=== PATIENT | female | born 2000 | race Caucasian/White ===

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

== ENCOUNTER 2019-08-07 20:52 | Emergency (ER) | payer MEDICAID, OTHER ==
[2019-08-07 21:09] VITALS: BP 151/91; PULSE 89; RESP 18; TEMP 99.1
--- NOTE | 2019-08-07 22:42 | XR ---
EXAMINATION TYPE: XR chest 1V portable DATE OF EXAM: 08/07/2019 COMPARISON: 10/27/2017 HISTORY: Cough TECHNIQUE: FINDINGS: Heart and mediastinum are normal. Lungs are clear. Diaphragm is normal. Bony thorax appears normal. IMPRESSION: Normal chest. No change.
--- NOTE | 2019-08-07 23:09 | ED ---
General Adult HPI - General Chief complaint: ENT Stated complaint: Fever, Sore Throat Time Seen by Provider: 08/07/19 21:20 Source: patient, RN notes reviewed Mode of arrival: ambulatory Limitations: no limitations - History of Present Illness Initial comments: 19-year-old female presents to the emergency department for a chief complaint of low-grade fever. 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 States she started to get a sore throat yesterday. Mild cough. Patient states that she is concerned she could have coronavirus because of where she works. She denies shortness of breath. Denies chest pain.Patient has no other complaints at this time including shortness of breath, chest pain, abdominal pain, nausea or vomiting, headache, or visual changes. - Related Data Previous Rx's Medication Instructions Recorded Ibuprofen [Motrin] 600 mg PO Q8HR PRN #30 tab 09/23/18 Ondansetron [Zofran ODT] 4 mg PO Q8HR PRN #20 tab 09/23/18 Hydrocodone/Acetaminophen [Hale 1 tab PO Q6HR PRN 3 Days #10 tab 09/25/18 5-325] Allergies Allergy/AdvReac Type Severity Reaction Status Date / Time No Known Allergies Allergy Verified 08/07/19 21:09 Review of Systems ROS Statement: Those systems with pertinent positive or pertinent negative responses have been documented in the HPI. ROS Other: All systems not noted in ROS Statement are negative. Past Medical History Past Medical History: No Reported History History of Any Multi-Drug Resistant Organisms: None Reported Past Surgical History: Cholecystectomy Past Psychological History: Depression Smoking Status: Never smoker Past Alcohol Use History: None Reported Past Drug Use History: None Reported - Past Family History Mother Family Medical History: Hypertension Additional Family Medical History / Comment(s): ovarian cancer, christiano, breast tumor Father Family Medical History: Hyperlipidemia, Hypertension General Exam Limitations: no limitations General appearance: alert, in no apparent distress Head exam: Present: atraumatic, normocephalic, normal inspection Eye exam: Present: normal appearance, PERRL, EOMI. Absent: scleral icterus, conjunctival injection, periorbital swelling ENT exam: Present: normal exam, normal oropharynx (Uvula midline, non- erythematous, no tonsillar exudates bilaterally), mucous membranes moist, TM's normal bilaterally, normal external ear exam Neck exam: Present: normal inspection, full ROM. Absent: tenderness, meningismus, lymphadenopathy Respiratory exam: Present: normal lung sounds bilaterally. Absent: respiratory distress, wheezes, rales, rhonchi, stridor Cardiovascular Exam: Present: regular rate, normal rhythm, normal heart sounds. Absent: systolic murmur, diastolic murmur, rubs, gallop, clicks GI/Abdominal exam: Present: soft, normal bowel sounds. Absent: distended, tenderness, guarding, rebound, rigid Neurological exam: Present: alert Course Vital Signs 08/07/19 21:07 Temperature 99.1 F Pulse Rate 89 Respiratory 18 Rate Blood Pressure 151/91 O2 Sat by Pulse 98 Oximetry Medical Decision Making - Medical Decision Making Vitals are stable. Patient is afebrile. Strep is negative. This x-ray shows a normal chest. Carotid versus pending. I will call patient with results tomorrow at the beginning of my shift. If she has any worsening symptoms prior to that she will return. She is aware not to go to work until she gets these results. - Lab Data Lab Results 08/07/19 Range/Units 22:08 Group A Strep Rapid Negative (Negative) Disposition Clinical Impression: Pharyngitis Disposition: HOME SELF-CARE Condition: Good Instructions (If sedation given, give patient instructions): Strep Throat (ED) Additional Instructions: Please take Tylenol for any fevers. If you have any worsening symptoms or shortness of breath return to the ER. Otherwise follow-up with primary care in 1-2 days. Is patient prescribed a controlled substance at d/c from ED?: No Referrals: Lencho Quiroz III, MD [Primary Care Provider] - 1-2 days Time of Disposition: 23:09
== END 2019-08-07 23:23 | disposition home or self-care (01) ==
LOC: EC 20:52
DX: J02.9 Acute pharyngitis, unspecified (principal); Z20.828 Contact with and (suspected) exposure to other viral communicable diseases
CPT/HCPCS: 71045; 87081; 87430; 87635; 99283

== ENCOUNTER 2019-09-14 14:06 | Emergency (ER) | payer OTHER ==
[2019-09-14 14:10] VITALS: TEMP 98.6
[2019-09-14] MEDS ORDERED: diphenhydrAMINE 50 MG/ML 1 ML VIAL IVP STA (14:23)
[2019-09-14] MEDS ORDERED: METOCLOPRAMIDE 5 MG/ML 2 ML VIAL IVP STA (14:23)
[2019-09-14] MEDS ORDERED: SODIUM CHLORIDE 0.9% 1,000 ML IV STA (14:23)
[2019-09-14] MEDS ORDERED: ACET/COD 300 MG/30 MG STARTER PACK 6 TAB BTL PO STA (14:52)
--- NOTE | 2019-09-14 14:57 | ED ---
General Adult HPI - General Chief complaint: Nausea/Vomiting/Diarrhea Stated complaint: 8.5 wks preg/vomiting Time Seen by Provider: 09/14/19 14:12 Source: patient, RN notes reviewed Mode of arrival: ambulatory Limitations: no limitations - History of Present Illness Initial comments: 19-year-old female currently 9 weeks presents to the emergency room for chief complaint of nausea vomiting. Patient states she has had nausea throughout this however worsen less than around 9 PM. Patient states she started vomiting and has not been able to keep down liquids. Sit patient called her OB and stated she should come to the emergency room for fluids. Patient has not tried any antiemetics. Patient denies any abdominal pain or v aginal bleeding. Patient does have a confirmed intrauterine by ultrasound at 5 weeks. Patient denies fevers or chills.Patient has no other complaints at this time including shortness of breath, chest pain, abdominal pain, headache, or visual changes. - Related Data Home Medications Medication Instructions Recorded Confirmed Pnv No.95/Ferrous Fum/Folic AC 1 tab PO DAILY 09/14/19 09/14/19 [ Multivitamin Tablet] RX: Levothyroxine Sodium 25 mcg PO QAM 09/14/19 09/14/19 Previous Rx's Medication Instructions Recorded Cephalexin [Keflex] 500 mg PO TID 7 Days #21 cap 09/14/19 Doxylamine/Pyridoxine HCl (B6) 2 tab PO HS PRN #14 tab 09/14/19 [Diclegis Dr 10-10 mg Tablet] Allergies Allergy/AdvReac Type Severity Reaction Status Date / Time No Known Allergies Allergy Verified 09/14/19 15:55 Review of Systems ROS Statement: Those systems with pertinent positive or pertinent negative responses have been documented in the HPI. ROS Other: All systems not noted in ROS Statement are negative. Past Medical History Past Medical History: No Reported History History of Any Multi-Drug Resistant Organisms: None Reported Past Surgical History: Cholecystectomy Past Psychological History: Depression Smoking Status: Never smoker Past Alcohol Use History: None Reported Past Drug Use History: None Reported - Past Family History Mother Family Medical History: Hypertension Additional Family Medical History / Comment(s): ovarian cancer, christiano, breast tumor Father Family Medical History: Hyperlipidemia, Hypertension General Exam Limitations: no limitations General appearance: alert, in no apparent distress Head exam: Present: atraumatic, normocephalic, normal inspection Eye exam: Present: normal appearance, PERRL, EOMI. Absent: scleral icterus, conjunctival injection, periorbital swelling ENT exam: Present: normal exam, mucous membranes moist Neck exam: Present: normal inspection, full ROM. Absent: tenderness, meningismus, lymphadenopathy Respiratory exam: Present: normal lung sounds bilaterally. Absent: respiratory distress, wheezes, rales, rhonchi, stridor Cardiovascular Exam: Present: regular rate, normal rhythm, normal heart sounds. Absent: systolic murmur, diastolic murmur, rubs, gallop, clicks GI/Abdominal exam: Present: soft, normal bowel sounds. Absent: distended, tenderness, guarding, rebound, rigid Neurological exam: Present: alert Course Vital Signs 09/14/19 14:07 Temperature 98.6 F Pulse Rate 75 Respiratory 16 Rate Blood Pressure 114/69 O2 Sat by Pulse 98 Oximetry Medical Decision Making - Medical Decision Making Vitals are stable. Minimal leukocytosis likely reflective of vomiting. CMP unremarkable. Urinalysis does show a white blood cells with occasional bacteria, patient will be treated for asymptomatic bactruria given . Patient tolerating oral intake at this time. Will be started on likely just. Will return for any worsening symptoms. Patient is agreeable to follow up with OBGYN in 1-2 days. HCG Quant pending for OB. - Lab Data Result diagrams: 09/14/19 14:44 09/14/19 14:44 Lab Results 09/14/19 09/14/19 09/14/19 Range/Units 14:40 14:44 14:44 WBC 11.9 H (4.0-11.0) k/uL RBC 5.12 (3.80-5.40) m/uL Hgb 14.7 (11.4-16.0) gm/dL Hct 44.5 (34.0-46.0) % MCV 87.0 (80.0-100.0) fL MCH 28.7 (25.0-35.0) pg MCHC 33.0 (31.0-37.0) g/dL RDW 13.1 (11.5-15.5) % Plt Count 289 (150-450) k/uL Neutrophils % 78 % Lymphocytes % 14 % Monocytes % 5 % Eosinophils % 1 % Basophils % 0 % Neutrophils # 9.4 H (1.3-7.7) k/uL Lymphocytes # 1.7 (1.0-4.8) k/uL Monocytes # 0.6 (0-1.0) k/uL Eosinophils # 0.1 (0-0.7) k/uL Basophils # 0.0 (0-0.2) k/uL Sodium 135 L (137-145) mmol/L Potassium 3.8 (3.5-5.1) mmol/L Chloride 101 (98-107) mmol/L Carbon Dioxide 24 (22-30) mmol/L Anion Gap 10 mmol/L BUN 8 (7-17) mg/dL Creatinine 0.57 (0.52-1.04) mg/dL Est GFR (CKD-EPI)AfAm >90 (>60 ml/min/1.73 sqM) Est GFR (CKD-EPI)NonAf >90 (>60 ml/min/1.73 sqM) Glucose 85 (74-99) mg/dL Calcium 9.5 (8.4-10.2) mg/dL Total Bilirubin 0.4 (0.2-1.3) mg/dL AST 22 (14-36) U/L ALT 18 (4-34) U/L Alkaline Phosphatase 103 (38-126) U/L Total Protein 7.3 (6.3-8.2) g/dL Albumin 4.2 (3.5-5.0) g/dL Amylase <30 L (30-110) U/L Lipase 47 (23-300) U/L Urine Color Yellow Urine Appearance Cloudy H (Clear) Urine pH 7.0 (5.0-8.0) Ur Specific [place] 1.022 (1.001-1.035) Urine Protein 1+ H (Negative) Urine Glucose (UA) Negative (Negative) Urine Ketones Negative (Negative) Urine Blood Negative (Negative) Urine Nitrite Negative (Negative) Urine Bilirubin Negative (Negative) Urine Urobilinogen 4.0 (<2.0) mg/dL Ur Leukocyte Esterase Large H (Negative) Urine RBC 3 (0-5) /hpf Urine WBC 8 H (0-5) /hpf Ur Squamous Epith Cells 22 H (0-4) /hpf Urine Bacteria Occasional H (None) /hpf Urine Mucus Many H (None) /hpf Disposition Clinical Impression: Nausea and vomiting Disposition: HOME SELF-CARE Condition: Good Instructions (If sedation given, give patient instructions): Hyperemesis Gravidarum (ED) Additional Instructions: Please take Diclegis and Keflex as directed. Follow-up with your OB tomorrow for your symptoms. If you have any worsening symptoms return here to the emergency room. Prescriptions: Doxylamine/Pyridoxine HCl (B6) [Diclegis Dr 10-10 mg Tablet] 2 tab PO HS PRN #14 tab PRN Reason: Nausea Cephalexin [Keflex] 500 mg PO TID 7 Days #21 cap Is patient prescribed a controlled substance at d/c from ED?: No Referrals: Lencho Quiroz III, MD [Primary Care Provider] - 1-2 days Time of Disposition: 16:16
[2019-09-14 15:11] LABS: Basophils % (A) 0 %; Eosinophils # (A) 0.1 k/uL (0-0.7); Eosinophils % (A) 1 %; HCT 44.5 % (34.0-46.0); HGB 14.7 gm/dL (11.4-16.0); Lymphocytes # (A) 1.7 k/uL (1.0-4.8); Lymphocytes % (A) 14 %; MCH 28.7 pg (25.0-35.0); Mean Platelet Volume 7.7; Monocytes # (A) 0.6 k/uL (0-1.0); Monocytes % (A) 5 %; Neutrophils # (A) 9.4 k/uL (1.3-7.7); Neutrophils % (A) 78 %; Platelet Count 289 k/uL (150-450); RBC 5.12 m/uL (3.80-5.40); RDW 13.1 % (11.5-15.5); WBC 11.9 k/uL (4.0-11.0)
[2019-09-14 15:20] LABS: ALT 18 U/L (4-34); AST 22 U/L (14-36); African American GFR (CKD) >90 (>60 ml/min/1.73 sqM); Albumin 4.2 g/dL (3.5-5.0); Alkaline Phosphatase 103 U/L (38-126); Amylase <30 U/L (30-110); Anion Gap 10 mmol/L; Blood Urea Nitrogen 8 mg/dL (7-17); Calcium 9.5 mg/dL (8.4-10.2); Carbon Dioxide 24 mmol/L (22-30); Chloride 101 mmol/L (98-107); Glucose 85 mg/dL (74-99); Non-African American GFR(CKD) >90 (>60 ml/min/1.73 sqM); Potassium 3.8 mmol/L (3.5-5.1); Sodium 135 mmol/L (137-145); Total Bilirubin 0.4 mg/dL (0.2-1.3); Total Protein 7.3 g/dL (6.3-8.2)
[2019-09-14 15:20] LABS: Appearance,Urine Cloudy (Clear); Bacteria,Urine Occasional /hpf; Bilirubin,Urine Negative (Negative); Blood,Urine Negative (Negative); Color,Urine Yellow; Glucose,Urine (UA) Negative (Negative); Ketones,Urine Negative (Negative); Leukocyte Esterase,Urine Large (Negative); Mucus,Urine Many /hpf; Nitrite,Urine Negative (Negative); Protein,Urine 1+ (Negative); RBC,Urine 3 /hpf (0-5); Specific Gravity,Urine 1.022 (1.001-1.035); Squamous Epithelial Cell,Urine 22 /hpf (0-4); WBC,Urine 8 /hpf (0-5)
[2019-09-14 16:19] LABS: HCG,Quantitative Serum 98723.8 mIU/mL
[2019-09-14 16:27] VITALS: BP 120/70; PULSE 70; RESP 18
== END 2019-09-14 16:26 | disposition home or self-care (01) ==
LOC: EC 14:06
DX: O21.9 Vomiting of pregnancy, unspecified (principal); O99.89 Other specified diseases and conditions complicating pregnancy, childbirth and the puerperium; R82.71 Bacteriuria; Z3A.09 9 weeks gestation of pregnancy; Z79.890 Hormone replacement therapy
CPT/HCPCS: 36415; 80053; 82150; 83690; 85025; 81001; 84702; 99284; 96374; 96375; 96361; J1200; J2765

== ENCOUNTER 2020-01-13 03:44 | Outpatient (CLI) | payer OTHER ==
[2020-01-13 05:00] VITALS: BP 134/70; PULSE 88; RESP 18; TEMP 97.2
--- NOTE | 2020-01-25 08:17 | P.MSEPDOC ---
Presenting Problems - Arrival Data Date of Arrival on Unit: 01/13/20 Time of Arrival on Unit: 03:44 Mode of Transport: Ambulatory - Complaint OB-Reason for Admission/Chief Complaint: Vaginal Bleeding Comment: VAGINAL BLEEDING WITH INTERCOURSE - PT STATES IT LOOKED LIKE A LOT OF BLOOD ON SHEETS, ONLY PINK WHEN WIPING WHEN UP TO BATHROOM, SCANT PINK ON UNDERWEAR, NO NEED TO WEAR PAD IN AND MINIMAL BLOOD ON EXTERIOR VAGINA. Medical History - Information : 1 Para: 0 Term: 0 : 0 Abortions: Spontaneous or Elective: 0 Number of Living Children: 0 - Gestational Age Gestational Age by CAMPOS (wks/days): 25 Weeks and 6 Days Review of Systems - Review of Systems Constitutional: No problems Breast: No problems ENT: No problems Cardiovascular: No problems Respiratory: No problems Gastrointestinal: No problems Genitourinary: No problems Musculoskeletal: No problems Neurological: No problems Skin: No problems Vital Signs - Temperature Temperature: 97.2 F Temperature Source: Temporal Artery Scan - Pulse Right Pulse Oximetery Pulse Rate: 88 Pulse Assessment Method: Pulse Oximetry - Respirations Respiratory Rate: 18 Oxygen Delivery Method: Room Air O2 Sat by Pulse Oximetry: 98 - Blood Pressure Right Arm Blood Pressure: 134/70 Blood Pressure Mean: 91 Blood Pressure Source: Automatic Cuff Medical Screen Scoring (Pre) - Cervical Exam Dilation: 0 cm = 0 Membranes: Intact - Uterine Contractions Frequency: N/A Duration: N/A Intensity: N/A - Maternal Vital Signs Maternal Temperature: N/A Maternal Blood Pressure: N/A Signs of Preeclampsia: N/A Maternal Respirations: N/A - Maternal Trauma Maternal Trauma: N/A - Assessment - Baby A Baseline FHR: 135 Heart Rate - NICHD Category: Category I (Normal) = 0 Position: N/A Station: N/A - Total Score - Baby A Total Score - Baby A: 0 - Total Score - Baby B Total Score - Baby B: 0 - Total Score - Baby C Total Score - Baby C: 0 - Level of Risk - Baby A Level of Risk - Baby A: Low (0-5) - Level of Risk - Baby B Level of Risk - Baby B: Low (0-5) - Level of Risk - Baby C Level of Risk - Baby C: Low (0-5) Physician Notification (Pre) - Physician Notified Physician Notified Date: 01/13/20 Physician Notified Time: 04:36 New Order Received: Yes Disposition - Disposition OB Disposition: Discharge to home Discharge Date: 01/13/20 Discharge Time: 04:50 I agree with the RN Medical Screening Exam: Yes Risk & Benefit of care provided described in d/c instruction: Yes Diagnosis: ABNORMAL UTERINE AND VAGINAL BLEEDING, UNSPECIFIED
== END 2020-01-13 04:50 | disposition home or self-care (01) ==
LOC: FBPOP 03:44
PROVIDERS: ATTEND Obstetrics & Gynecology
DX: O46.93 Antepartum hemorrhage, unspecified, third trimester (principal); Z3A.25 25 weeks gestation of pregnancy
CPT/HCPCS: 99213

== ENCOUNTER 2020-04-12 14:01 | Outpatient (CLI) | payer OTHER ==
[2020-04-12 15:18] LABS: ALT 12 U/L (4-34); AST 28 U/L (14-36); African American GFR (CKD) >90 (>60 ml/min/1.73 sqM); Blood Urea Nitrogen 8 mg/dL (7-17); LDH 699 U/L (313-618); Non-African American GFR(CKD) >90 (>60 ml/min/1.73 sqM); Uric Acid 5.7 mg/dL (3.7-7.4)
[2020-04-12 15:19] LABS: Basophils # (A) 0.1 k/uL (0-0.2); Basophils % (A) 0 %; Eosinophils # (A) 0.2 k/uL (0-0.7); Eosinophils % (A) 1 %; HCT 40.8 % (34.0-46.0); HGB 13.9 gm/dL (11.4-16.0); Lymphocytes # (A) 1.4 k/uL (1.0-4.8); Lymphocytes % (A) 12 %; MCH 27.8 pg (25.0-35.0); MCHC 34.1 g/dL (31.0-37.0); MCV 81.6 fL (80.0-100.0); Mean Platelet Volume 9.8; Monocytes # (A) 0.7 k/uL (0-1.0); Monocytes % (A) 6 %; Neutrophils # (A) 9.6 k/uL (1.3-7.7); Neutrophils % (A) 80 %; Platelet Count 223 k/uL (150-450); RDW 14.4 % (11.5-15.5)
[2020-04-12 15:24] LABS: Appearance,Urine Cloudy (Clear); Bacteria,Urine Moderate /hpf; Bilirubin,Urine Negative (Negative); Blood,Urine Negative (Negative); Color,Urine Yellow; Creatinine,Urine Random 134.5 mg/dL; Glucose,Urine (UA) Negative (Negative); Ketones,Urine Negative (Negative); Leukocyte Esterase,Urine Large (Negative); Mucus,Urine Rare /hpf; Nitrite,Urine Negative (Negative); Protein,Urine 1+ (Negative); Protein/Creatinine Ratio,Urine 0.193; RBC,Urine 1 /hpf (0-5); Specific Gravity,Urine 1.014 (1.001-1.035); Squamous Epithelial Cell,Urine 10 /hpf (0-4); Urobilinogen,Urine <2.0 mg/dL (<2.0); WBC,Urine 24 /hpf (0-5)
[2020-04-12 15:27] LABS: INR 0.9 (<1.2); Partial Thromboplastin Time 22.8 sec (22.0-30.0); Prothrombin Time 9.6 sec (9.0-12.0)
[2020-04-12 16:02] VITALS: BP 132/85; PULSE 121; RESP 16; TEMP 97.9
--- NOTE | 2020-04-12 18:07 | P.MSEPDOC ---
Presenting Problems - Arrival Data Date of Arrival on Unit: 04/12/20 Time of Arrival on Unit: 14:01 Mode of Transport: Ambulatory - Complaint OB-Reason for Admission/Chief Complaint: NST, PIH Medical History - Information : 1 Para: 0 Term: 0 : 0 Abortions: Spontaneous or Elective: 0 Number of Living Children: 0 - Gestational Age Gestational Age by CAMPOS (wks/days): 38 Weeks and 5 Days - History Complications: Other Comment: maternal HTN at office today Review of Systems - Review of Systems Constitutional: No problems Breast: No problems ENT: No problems Cardiovascular: No problems Respiratory: No problems Gastrointestinal: No problems Genitourinary: No problems Musculoskeletal: No problems Neurological: No problems Skin: No problems Vital Signs - Temperature Temperature: 97.9 F Temperature Source: Temporal Artery Scan - Pulse Right Pulse Rate: 121 Pulse Assessment Method: Automatic Cuff - Respirations Respiratory Rate: 16 Oxygen Delivery Method: Room Air O2 Sat by Pulse Oximetry: 98 - Blood Pressure Right Arm Blood Pressure: 132/85 Blood Pressure Mean: 100 Blood Pressure Source: Automatic Cuff Medical Screen Scoring (Pre) - Cervical Exam Dilation: Exam Deferred Effacement: Exam Deferred Membranes: Intact - Uterine Contractions Frequency: N/A Duration: N/A Intensity: N/A - Maternal Vital Signs Maternal Temperature: N/A Signs of Preeclampsia: N/A Maternal Respirations: N/A - Maternal Trauma Maternal Trauma: N/A - Assessment - Baby A Baseline FHR: 145 Heart Rate - NICHD Category: Category I (Normal) = 0 NST: Reactive Position: N/A Station: N/A - Total Score - Baby A Total Score - Baby A: 0 - Total Score - Baby B Total Score - Baby B: 0 - Total Score - Baby C Total Score - Baby C: 0 - Level of Risk - Baby A Level of Risk - Baby A: Low (0-5) - Level of Risk - Baby B Level of Risk - Baby B: Low (0-5) - Level of Risk - Baby C Level of Risk - Baby C: Low (0-5) Physician Notification (Pre) - Physician Notified Physician Notified Date: 04/12/20 Physician Notified Time: 15:36 New Order Received: Yes - Notification Comment Comment: RN spoke with Dr. Ching, reviewed PIH labs, vitals, and status. Pt to DC home and come in Saturday 04/15 for a BP check and NST. Pt to be an IOL on Monday 04/17 and arrive at 6am. Disposition - Disposition OB Disposition: Discharge to home Discharge Date: 04/12/20 Discharge Time: 16:05 I agree with the RN Medical Screening Exam: Yes Case reviewed; plan agreed upon as documented in EMR&OBIX.: Yes Diagnosis: GESTATIONAL EDEMA, THIRD TRIMESTER
== END 2020-04-12 16:03 | disposition home or self-care (01) ==
LOC: FBPOP 14:01
PROVIDERS: ATTEND Obstetrics & Gynecology
DX: O12.03 Gestational edema, third trimester (principal); Z3A.38 38 weeks gestation of pregnancy
CPT/HCPCS: 59025; 81001; 82565; 82570; 83615; 84156; 84450; 84460; 84520; 84550; 85025; 85384; 85610; 85730

== ENCOUNTER 2020-04-15 12:40 | Inpatient (IN) | payer OTHER ==
[2020-04-15] MEDS ORDERED: LIDOCAINE 0.5% (PF) 5 MG/ML (50 ML SDV) SQ PRN (13:19)
[2020-04-15] MEDS ORDERED: METHYLERGONOVINE 0.2 MG/ML 1 ML AMP IM PRN (13:19)
[2020-04-15] MEDS ORDERED: TERBUTALINE 1 MG/ML VIAL SQ PRN (13:19)
[2020-04-15] MEDS ORDERED: OXYTOCIN 10 UNIT/ML 1 ML VIAL IM PRN (13:19)
[2020-04-15] MEDS ORDERED: CARBOPROST TROMETHAMINE 250 MCG/ML 1 ML AMP IM PRN (13:19)
[2020-04-15] MEDS ORDERED: OXYTOCIN 30 UNITS/500 ML NS 30 UNIT in SALINE 1 500ML.BAG IV SCH (13:30)
[2020-04-15 14:11] LABS: Basophils % (A) 0 %; Eosinophils # (A) 0.1 k/uL (0-0.7); Eosinophils % (A) 1 %; HCT 41.1 % (34.0-46.0); HGB 13.6 gm/dL (11.4-16.0); Lymphocytes # (A) 1.4 k/uL (1.0-4.8); Lymphocytes % (A) 12 %; MCH 27.3 pg (25.0-35.0); MCHC 33.2 g/dL (31.0-37.0); MCV 82.4 fL (80.0-100.0); Mean Platelet Volume 9.1; Monocytes # (A) 0.6 k/uL (0-1.0); Monocytes % (A) 5 %; Neutrophils # (A) 9.4 k/uL (1.3-7.7); Neutrophils % (A) 81 %; Platelet Count 215 k/uL (150-450); RBC 4.99 m/uL (3.80-5.40); RDW 14.6 % (11.5-15.5); WBC 11.6 k/uL (3.8-10.6)
[2020-04-15] MEDS: LACTATED RINGERS 1,000 ML IV SCH ×3 (14:26→19:00)
[2020-04-15 14:46] LABS: ALT 11 U/L (4-34); AST 19 U/L (14-36); African American GFR (CKD) >90 (>60 ml/min/1.73 sqM); Blood Urea Nitrogen 8 mg/dL (7-17); LDH 545 U/L (313-618); Non-African American GFR(CKD) >90 (>60 ml/min/1.73 sqM)
[2020-04-15 16:46] LABS: Appearance,Urine Clear (Clear); Bilirubin,Urine Negative (Negative); Blood,Urine Negative (Negative); Color,Urine Yellow; Glucose,Urine (UA) Negative (Negative); Ketones,Urine Negative (Negative); Leukocyte Esterase,Urine Negative (Negative); Nitrite,Urine Negative (Negative); PH, Urine 7.5 (5.0-8.0); Protein,Urine Trace (Negative); Urobilinogen,Urine <2.0 mg/dL (<2.0)
[2020-04-15 16:59] LABS: Creatinine,Urine Random 152.3 mg/dL; Creatinine,Urine Random 157.2 mg/dL; Protein/Creatinine Ratio,Urine 0.125
[2020-04-15] MEDS ORDERED: BUTORPHANOL 1 MG/ML 1 ML VIAL IV PRN (17:16)
[2020-04-15] MEDS ORDERED: ROPIVACAINE 5MG/ML 20ML VIAL ONE (18:41)
[2020-04-15] MEDS ORDERED: SODIUM CHLORIDE 0.9% 100 ML BAG ONE (18:41)
[2020-04-15] MEDS ORDERED: fentaNYL (PF) 50 MCG/ML 5 ML AMP ONE (18:41)
[2020-04-15] MEDS ORDERED: PHENYLEPHRINE 10 MG/ML VIAL ONE (18:41)
--- NOTE | 2020-04-15 21:00 | P.HPOB ---
History of Present Illness H&P Date: 04/15/20 Chief Complaint: Spontaneous rupture of membranes This is a 20-year-old female 1 para 0 with an estimated date of confinement of 04/21/2020, estimated gestational age of 39 and one sevenths weeks, who presented to labor and delivery with complaints of spontaneous rup ture of membranes at approximately noon today. She states it was a large amount of clear fluid. She denied feeling any regular contractions on admission. Her course was complicated recently by some elevated blood pressures. She did have lab workup a few days ago that was negative for preeclampsia. Her blood pressures at that time were mildly elevated. She was scheduled for an induction on Friday by Dr. Ching. Upon admission her blood pressure was very mildly elevated. She denied any headaches, blurry vision, or epigastric pain. labs: GC/Chlamydia/Trichomonas-negative Hepatitis B surface antigen-negative RPR-nonreactive Rubella-immune Blood type-O+ And a body screen-negative HIV-nonreactive Hemoglobin-13.9 Toxoplasma screen-negative Random glucose-89 Obstetrical ultrasound-normal anatomy One hour Glucola-107 Group B streptococcus-negative Obstetrical history: . Social history: She is single. 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 Review of Systems Constitutional: Denies chills, Denies fever Eyes: denies blurred vision, denies pain Ears, nose, mouth and throat: Denies headache, Denies sore throat Cardiovascular: Denies chest pain, Denies shortness of breath Respiratory: Denies cough Gastrointestinal: Denies abdominal pain Genitourinary: Reports pelvic pain, Reports Musculoskeletal: Reports low back pain Integumentary: Denies pruritus, Denies rash Neurological: Denies numbness, Denies weakness Psychiatric: Denies anxiety, Denies depression Past Medical History Past Medical History: Thyroid Disorder History of Any Multi-Drug Resistant Organisms: None Reported Past Surgical History: Cholecystectomy Past Anesthesia/Blood Transfusion Reactions: No Reported Reaction Past Psychological History: No Psychological Hx Reported Smoking Status: Never smoker Past Alcohol Use History: None Reported Past Drug Use History: None Reported - Past Family History Mother History Unknown: Yes Family Medical History: Hypertension Additional Family Medical History / Comment(s): ovarian cancer, christiano, breast tumor Father Family Medical History: Hyperlipidemia, Hypertension Medications and Allergies Home Medications Medication Instructions Recorded Confirmed Type Pnv No.95/Ferrous Fum/Folic AC 1 tab PO DAILY 09/14/19 04/15/20 History [ Multivitamin Tablet] Levothyroxine Sodium [Levo-T] 50 mcg PO DAILY 04/12/20 04/15/20 History Allergies Allergy/AdvReac Type Severity Reaction Status Date / Time No Known Allergies Allergy Verified 04/12/20 14:14 Exam Osteopathic Statement: *. No significant issues noted on an osteopathic structural exam other than those noted in the History and Physical/Consult. Vital Signs Temp Pulse Resp BP 04/15/20 13:26 97.5 F L 103 H 16 144/74 04/15/20 13:00 97.5 F L 103 H 16 144/74 Intake and Output 04/15/20 04/15/20 04/15/20 06:59 14:59 22:59 Other: Weight 122.47 kg Gen.: Well-developed well-nourished female in no acute distress HEENT: Within normal limits Heart: Regular rate and rhythm Lungs: Clear to auscultation bilaterally Abdomen: Cervix: Initially is 1-1/2 cm/70%/-2 station. No obvious fluid is noted on ex am, however amnisure is positive. heart tones on admission: Category 1. Contractions: Very irregular. Extremities: Negative Homans Results Result Diagrams: 04/15/20 13:50 04/15/20 13:50 Abnormal Lab Results - Last 24 Hours (Table) 04/15/20 04/15/20 04/15/20 Range/Units 13:50 13:50 16:20 WBC 11.6 H (3.8-10.6) k/uL Neutrophils # 9.4 H (1.3-7.7) k/uL Creatinine 0.50 L (0.52-1.04) mg/dL Urine Protein Trace H (Negative) U Random Total Protein (<12) mg/dL 04/15/20 Range/Units 16:20 WBC (3.8-10.6) k/uL Neutrophils # (1.3-7.7) k/uL Creatinine (0.52-1.04) mg/dL Urine Protein (Negative) U Random Total Protein 19 H (<12) mg/dL Assessment and Plan (1) Spontaneous rupture of membranes Current Visit: Yes Status: Acute Code(s): CUS1455 - SNOMED Code(s): 778568785 (2) 39 weeks gestation of Current Visit: Yes Status: Acute Code(s): Z3A.39 - 39 WEEKS GESTATION OF SNOMED Code(s): 11872037 (3) Gestational hypertension Current Visit: Yes Status: Acute Code(s): O13.9 - GESTATIONAL HTN W/O SIGNIFICANT PROTEINURIA, UNSP TRIMESTER SNOMED Code(s): 503629887 Plan: Admission for early labor. Oxytocin augmentation of labor. Epidural anesthesia if desired. Will obtain preeclamptic labs to confirm no changes from her previous triage visit. Expectant management.
[2020-04-16] MEDS ORDERED: CITRIC ACID-SODIUM CITRATE 15 ML CUP PO ONE (00:48)
[2020-04-16] MEDS ORDERED: ceFAZolin 3 GM in SODIUM CHLORIDE 0.9% 100 ML IVPB ONE (00:48)
[2020-04-16] MEDS ORDERED: HYDROcodone/APAP 5-325MG 1 EACH TAB PO PRN (00:54)
[2020-04-16] MEDS ORDERED: diphenhydrAMINE 25 MG CAP PO PRN (00:54)
[2020-04-16] MEDS ORDERED: HYDROcodone/APAP 7.5-325MG 1 EACH TAB PO PRN (00:54)
[2020-04-16] MEDS ORDERED: NALOXONE 0.4 MG/ML 1 ML VIAL IV PRN (00:54)
[2020-04-16] MEDS ORDERED: HYDROmorphone PCA 10 MG/50 ML BAG IV PRN (00:54)
[2020-04-16] MEDS ORDERED: METOCLOPRAMIDE 5 MG/ML 2 ML VIAL IVP PRN (00:54)
[2020-04-16] MEDS ORDERED: KETOROLAC 15 MG/ML 1 ML VIAL IVP PRN (00:54)
[2020-04-16] MEDS ORDERED: ACETAMINOPHEN TAB 325 MG TAB PO PRN (00:54)
[2020-04-16] MEDS ORDERED: diphenhydrAMINE 50 MG/ML 1 ML VIAL IVP PRN ×2 (00:54)
[2020-04-16] MEDS ORDERED: ZOLPIDEM 5 MG TAB PO PRN (00:54)
[2020-04-16] MEDS ORDERED: diphenhydrAMINE 50 MG CAP PO PRN (00:54)
[2020-04-16] MEDS ORDERED: ONDANSETRON 4 MG/2 ML VIAL IVP PRN (00:54)
[2020-04-16] MEDS: LACTATED RINGERS 1,000 ML IV SCH ×3 (00:57→22:09)
[2020-04-16] MEDS ORDERED: KETOROLAC 15 MG/ML 1 ML VIAL ONE (01:20)
[2020-04-16] MEDS ORDERED: ONDANSETRON 4 MG/2 ML VIAL ONE (01:20)
[2020-04-16] MEDS ORDERED: MORPHINE SULFATE (PF) 0.3 MG/0.3 ML SYR ONE (01:20)
[2020-04-16] MEDS ORDERED: OXYTOCIN 10 UNIT/ML 1 ML VIAL ONE (01:20)
--- NOTE | 2020-04-16 02:18 | P.OP ---
Date of Procedure: 04/16/20 Preoperative Diagnosis: 1. Intrauterine at 39-2/7 weeks. 2. Failure to progress. 3. Gestational hypertension. Postoperative Diagnosis: Same Procedure(s) Performed: Primary low transverse section Anesthesia: epidural (With Duramorph) Surgeon: Ashli Horner Can Tender #1: Rizwana Higgins Estimated Blood Loss (ml): 200 Pathology: other (Placenta) Condition: stable Disposition: floor Indications for Procedure: This is a 20-year-old female 1 para 0 at 39 and one sevenths weeks who presented with spontaneous rupture of membranes in active labor. She underwent oxytocin augmentation of labor and reached a maximum of about 5 cm. At this point she was very uncomfortable as her epidural was not working very well and she had made very little progress in approximately 4 hour period of time. She requested section. She was offered an epidural bolus but did not wish to proceed with labor any further. I have discussed the risks, benefits, and alternative therapies for the above- mentioned procedure and for both sedation/anesthesia as well as necessary blood products administration, if indicated, as they pertain to this patient. The patient has indicated her understanding and acceptance of the risks and procedures discussed. Operative Findings: A viable male infant is noted in the vertex presentation with significant caput and scores of 9 at 1 minute and 9 at 5 minutes and infant weight of 7 lbs. 11 oz. Normal uterus tubes and ovaries are noted. Description of Procedure: The patient is taken to the operating room where she is placed in the dorsal s upine position with leftward tilt after epidural anesthesia is bolused. She is prepped and draped in the normal sterile fashion. Skin was tested and found to be adequately anesthetized. A Pfannenstiel skin incision was made with a scalpel. A second knife was used to carry the incision down to the underlying layer of fascia. The fascia was nicked in the midline with a scalpel and then extended laterally bilaterally with Van scissors. The anterior lip of the fascia was grasped with 2 Maribel clamps and then dissected off the underlying rectus muscle in the midline with Van scissors. The inferior aspect of the fascial incision was grasped with 2 Maribel clamps and dissected off the underlying rectus muscle and the midline with Van scissors. Next the peritoneum layer was tented up with 2 hemostats and then entered sharply with the scalpel. The incision is extended superiorly and inferiorly with Metzenbaum scissors. Next a DeLee retractor is placed. The vesicouterine peritoneum is entered sharply with Metzenbaum scissors and extended laterally bilaterally with Metzenbaum scissors and then the bladder flap is pushed inferiorly. The lower uterine segment is incised in transverse fashion with the scalpel and then bluntly entered with a hemostat. Clear fluid is noted. The incision was then extended laterally bilaterally with 2 fingers. Next the 's head is delivered through the incision. Nose and mouth are bulb suctioned. The remainder of the infant is easily delivered and placed on mother's abdomen. Cord is clamped and cut. is taken to warmer by nursing staff. Uterine fundus is gently massaged and placenta is delivered manually. Uterus is exteriorized and cleared of all clots and debris. Uterine incision is closed with 0 Vicryl suture in a running locked fashion. A second layer of 0 Vicryl suture is used in a running fashion for hemostasis. Once adequate hemostasis as assured, the vesicouterine peritoneum is reapproximated with 2-0 Vicryl suture in a running fashion. Posterior cul-de-sac is suctioned of all clots and debris. Uterus is returned to the abdomen. Incision is noted to be hemostatic. Peritoneal layer is closed with 0 Vicryl suture in a running fashion. Muscle layer is reapproximated with 0 Vicryl suture in interrupted fashion. Fascia layer is then closed with 0 PDS suture with 2 sutures meeting in the midline and the knots buried in either side and in the midline. The subcutaneous tissue was then closed with 2-0 Vicryl suture. Skin layer was then closed with jacque. All sponge and needle counts are correct. The patient is taken to recovery room in stable condition.
[2020-04-16] MEDS: LEVOTHYROXINE 50 MCG TAB PO SCH (07:05)
[2020-04-16] MEDS: SENNOSIDES-DOCUSATE SODIUM 1 EACH TAB PO SCH ×2 (16:59→20:26)
[2020-04-17] MEDS: IBUPROFEN 600 MG TAB PO PRN ×2 (01:41→14:15)
[2020-04-17 05:34] LABS: Basophils % (A) 0 %; Eosinophils # (A) 0.1 k/uL (0-0.7); Eosinophils % (A) 1 %; HCT 37.5 % (34.0-46.0); HGB 11.9 gm/dL (11.4-16.0); Lymphocytes # (A) 1.8 k/uL (1.0-4.8); Lymphocytes % (A) 16 %; MCH 26.7 pg (25.0-35.0); MCHC 31.7 g/dL (31.0-37.0); MCV 84.1 fL (80.0-100.0); Mean Platelet Volume 9.2; Monocytes # (A) 0.7 k/uL (0-1.0); Monocytes % (A) 6 %; Neutrophils # (A) 8.8 k/uL (1.3-7.7); Neutrophils % (A) 75 %; Platelet Count 207 k/uL (150-450); RBC 4.46 m/uL (3.80-5.40); RDW 14.8 % (11.5-15.5); WBC 11.8 k/uL (3.8-10.6)
--- NOTE | 2020-04-17 08:22 | P.PNOBGPC ---
Subjective - Subjective Principal diagnosis: Status post primary low transverse postop day #1 Interval history: Patient seen and examined. Denies nausea, vomiting, chest pain, shortness of breath or calf pain. She states pain is well-controlled. Ambulating voiding without difficulty. Patient reports: Reports appetite normal, Reports voiding normally, Reports pain well controlled, Reports ambulating normally : doing well Objective - Vital Signs Latest vital signs: Vital Signs Temp Pulse Resp BP Pulse Ox 04/16/20 20:00 97.5 F L 109 H 18 135/83 04/16/20 16:00 98.2 F 73 16 118/63 100 04/16/20 12:00 98.3 F 78 16 122/71 100 Intake and Output 04/16/20 04/17/20 04/17/20 22:59 06:59 14:59 Output Total 350 Balance -350 Output: Urine 350 Other: # Voids 1 2 - Exam Lungs: bilateral: normal Chest: Normal S1, Normal S2 Extremities: Present: normal Abdomen: Present: normal appearance, soft. Absent: distention, tenderness Incision: Present: normal, dry, intact Uterus: Present: normal, firm - Labs Labs: Abnormal Lab Results - Last 24 Hours (Table) 04/17/20 Range/Units 05:17 WBC 11.8 H (3.8-10.6) k/uL Neutrophils # 8.8 H (1.3-7.7) k/uL Assessment and Plan (1) Status post primary low transverse section Current Visit: Yes Status: Acute Code(s): Z98.891 - HISTORY OF UTERINE SCAR FROM PREVIOUS SURGERY SNOMED Code(s): 348137248 Plan: 1. Continue postoperative care 2. Increase ambulation 3. Regular diet
[2020-04-17] MEDS: LEVOTHYROXINE 50 MCG TAB PO SCH (09:01)
[2020-04-17] MEDS: SENNOSIDES-DOCUSATE SODIUM 1 EACH TAB PO SCH ×2 (10:42→14:08)
--- NOTE | 2020-04-17 16:46 | P.PN ---
Progress Note - Text Date:[ 04/17/2020] Time: 0 7:19 The patient is status post section Vital signs stable VAS:[ 0-10] Patient has no complaints of pain. The patient incurred some minimal itching yesterday, this itching is now subsiding. Pain meds to be managed by service.
[2020-04-17 16:57] VITALS: RESP 16
[2020-04-18] MEDS: IBUPROFEN 600 MG TAB PO PRN ×2 (00:12→07:31)
[2020-04-18] MEDS: SENNOSIDES-DOCUSATE SODIUM 1 EACH TAB PO SCH (07:31)
[2020-04-18] MEDS: LEVOTHYROXINE 50 MCG TAB PO SCH (07:47)
[2020-04-18 08:35] VITALS: BP 143/69; PULSE 70; TEMP 98.9
--- NOTE | 2020-04-19 08:55 | P.MSEPDOC ---
Presenting Problems - Arrival Data Date of Arrival on Unit: 04/15/20 Time of Arrival on Unit: 13:27 Mode of Transport: Ambulatory - Complaint OB-Reason for Admission/Chief Complaint: Rule Out PROM Comment: rom around noon, clear fluid Medical History - Information : 1 Para: 0 Term: 0 : 0 Abortions: Spontaneous or Elective: 0 Number of Living Children: 0 - Gestational Age Gestational Age by CAMPOS (wks/days): 39 Weeks and 2 Days Review of Systems - Review of Systems Constitutional: No problems Breast: No problems ENT: No problems Cardiovascular: No problems Respiratory: No problems Gastrointestinal: No problems Genitourinary: No problems Musculoskeletal: No problems Neurological: No problems Skin: No problems Vital Signs - Temperature Temperature: 98.9 F Temperature Source: Oral - Pulse Right Brachial Pulse Rate: 70 Pulse Assessment Method: Pulse Oximetry - Respirations Respiratory Rate: 16 - Blood Pressure Right Arm Blood Pressure: 143/69 Blood Pressure Mean: 93 Blood Pressure Source: Automatic Cuff Medical Screen Scoring (Pre) - Cervical Exam Dilation: 1-3 cm = 1 Effacement: More than 50% = 2 Membranes: Ruptured = 3 - Uterine Contractions Frequency: N/A - Maternal Vital Signs Maternal Temperature: N/A Maternal Blood Pressure: N/A Signs of Preeclampsia: N/A Maternal Respirations: N/A - Maternal Trauma Maternal Trauma: N/A - Assessment - Baby A Baseline FHR: 150 Heart Rate - NICHD Category: Category I (Normal) = 0 NST: Reactive - Total Score - Baby A Total Score - Baby A: 6 - Total Score - Baby B Total Score - Baby B: 6 - Total Score - Baby C Total Score - Baby C: 6 - Level of Risk - Baby A Level of Risk - Baby A: Medium (6-9) - Level of Risk - Baby B Level of Risk - Baby B: Medium (6-9) - Level of Risk - Baby C Level of Risk - Baby C: Medium (6-9) Physician Notification (Pre) - Physician Notified Physician Notified Date: 04/15/20 Physician Notified Time: 13:27 New Order Received: Yes - Notification Comment Comment: admit for labour Disposition - Disposition OB Disposition: Admit, LDRP Suite Discharge Date: 04/18/20 Discharge Time: 08:58 I agree with the RN Medical Screening Exam: Yes Case reviewed; plan agreed upon as documented in EMR&OBIX.: Yes Diagnosis: ENCOUNTER FOR FULL-TERM UNCOMPLICATED DELIVERY
== END 2020-04-18 08:58 | disposition home or self-care (01) | DRG 788 ==
LOC: FBPOP 12:40 → 4FBP 13:18
PROVIDERS: ADMIT Obstetrics & Gynecology; ATTEND Obstetrics & Gynecology
PROC: 00HU33Z Insertion of Infusion Device into Spinal Canal, Percutaneous Approach (ICD-10-PCS; 2020-04-15)
PROC: 3E0R3NZ Introduction of Analgesics, Hypnotics, Sedatives into Spinal Canal, Percutaneous Approach (ICD-10-PCS; 2020-04-15)
PROC: 10D00Z1 Extraction of Products of Conception, Low, Open Approach (ICD-10-PCS; principal; 2020-04-16 01:25)
DX: O13.4 Gestational [pregnancy-induced] hypertension without significant proteinuria, complicating childbirth (principal); O62.2 Other uterine inertia; Z37.0 Single live birth; Z3A.39 39 weeks gestation of pregnancy; Z79.890 Hormone replacement therapy; Z80.41 Family history of malignant neoplasm of ovary; Z82.49 Family history of ischemic heart disease and other diseases of the circulatory system
CPT/HCPCS: 59025; 81003; 82565; 82570; 83615; 84112; 84156; 84450; 84460; 84520; 84550; 85025; 86850; 86900; 86901; 88307; 99213

== ENCOUNTER 2020-06-09 12:51 | Emergency (ER) | payer OTHER ==
[2020-06-09 13:02] VITALS: BP 123/85; PULSE 92; RESP 17; TEMP 97.9
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
== END 2020-06-09 13:40 | disposition home or self-care (01) ==
LOC: EC 12:51
DX: H11.31 Conjunctival hemorrhage, right eye (principal)
CPT/HCPCS: 99283

== ENCOUNTER 2020-06-30 16:36 | Emergency (ER) | payer OTHER ==
[2020-06-30 16:55] VITALS: TEMP 97.9
[2020-06-30 17:18] LABS: Appearance,Urine Cloudy (Clear); Bilirubin,Urine Negative (Negative); Blood,Urine Trace (Negative); Color,Urine Yellow; Glucose,Urine (UA) Negative (Negative); Ketones,Urine Negative (Negative); Leukocyte Esterase,Urine Trace (Negative); Mucus,Urine Rare /hpf; Nitrite,Urine Negative (Negative); PH, Urine 5.5 (5.0-8.0); Protein,Urine Trace (Negative); RBC,Urine 2 /hpf (0-5); Specific Gravity,Urine 1.022 (1.001-1.035); Squamous Epithelial Cell,Urine 9 /hpf (0-4); Urobilinogen,Urine <2.0 mg/dL (<2.0); WBC,Urine 2 /hpf (0-5)
[2020-06-30] MEDS ORDERED: SODIUM CHLORIDE 0.9% 1,000 ML IV STA (19:14)
[2020-06-30] MEDS ORDERED: KETOROLAC 15 MG/ML 1 ML VIAL IVP STA (19:14)
--- NOTE | 2020-06-30 19:33 | ED ---
General Adult HPI - General Chief complaint: Back Pain/Injury Stated complaint: Back Pain Time Seen by Provider: 06/30/20 18:49 Source: patient, RN notes reviewed Mode of arrival: ambulatory Limitations: no limitations - History of Present Illness Initial comments: 20-year-old female with a past medical history of thyroid disorder currently 3 months presents to the emergency room for chief complaint of right side pain. Patient states that she woke up this morning she noticed some pain in her hip. She thought this worsened with movement. She thought this may be because she was sleeping only on her left side as she got a tattoo on her right shoulder yesterday. However that today the pain pressed into her right-sided ribs and radiates to her back. Patient states her father has history of kidney stones. Patient denies fevers. Denies dysuria.Patient has no other complaints at this time including shortness of breath, chest pain, abdominal pain, nausea or vomiting, headache, or visual changes. - Related Data Home Medications Medication Instructions Recorded Confirmed Pnv No.95/Ferrous Fum/Folic AC 1 tab PO DAILY 09/14/19 04/15/20 [ Multivitamin Tablet] Levothyroxine Sodium [Levo-T] 50 mcg PO DAILY 04/12/20 04/15/20 Previous Rx's Medication Instructions Recorded Ibuprofen [Motrin] 600 mg PO Q6HR PRN #30 tab 04/18/20 Allergies Allergy/AdvReac Type Severity Reaction Status Date / Time No Known Allergies Allergy Verified 06/30/20 16:53 Review of Systems ROS Statement: Those systems with pertinent positive or pertinent negative responses have been documented in the HPI. ROS Other: All systems not noted in ROS Statement are negative. Past Medical History Past Medical History: Thyroid Disorder History of Any Multi-Drug Resistant Organisms: None Reported Past Surgical History: Section, Cholecystectomy Past Anesthesia/Blood Transfusion Reactions: No Reported Reaction Past Psychological History: No Psychological Hx Reported Smoking Status: Former smoker Past Alcohol Use History: None Reported Past Drug Use History: None Reported - Past Family History Mother History Unknown: Yes Family Medical History: Hypertension Additional Family Medical History / Comment(s): ovarian cancer, christiano, breast tu mor Father Family Medical History: Hyperlipidemia, Hypertension General Exam Limitations: no limitations General appearance: alert, in no apparent distress Head exam: Present: atraumatic, normocephalic, normal inspection Eye exam: Present: normal appearance ENT exam: Present: normal exam, mucous membranes moist Neck exam: Present: normal inspection, full ROM. Absent: tenderness, meningismus, lymphadenopathy Respiratory exam: Present: normal lung sounds bilaterally. Absent: respiratory distress, wheezes, rales, rhonchi, stridor Cardiovascular Exam: Present: regular rate, normal rhythm, normal heart sounds. Absent: systolic murmur, diastolic murmur, rubs, gallop, clicks GI/Abdominal exam: Present: soft, normal bowel sounds. Absent: distended, tenderness, guarding, rebound, rigid Back exam: Present: CVA tenderness (R). Absent: CVA tenderness (L) Course Vital Signs 06/30/20 16:49 Temperature 97.9 F Pulse Rate 97 Respiratory 18 Rate Blood Pressure 139/68 O2 Sat by Pulse 100 Oximetry Medical Decision Making - Medical Decision Making Vitals stable. CBC CMP unremarkable. Urinalysis does show trace blood. No significant evidence of infection. CT abdomen and pelvis did show right-sided hydronephrosis and hydroureter. Possible calculus in the urinary bladder measur ing 4 mm which could be a stone already passed. This is consistent with patient's symptoms. She states her pain is resolved at this time. Patient will be discharged to follow-up with primary care. She will return here for any worsening symptoms. - Lab Data Result diagrams: 06/30/20 19:28 06/30/20 19:28 Lab Results 06/30/20 06/30/20 06/30/20 Range/Units 17:01 17:01 19:28 WBC 13.6 H (3.8-10.6) k/uL RBC 5.45 H (3.80-5.40) m/uL Hgb 15.1 (11.4-16.0) gm/dL Hct 45.2 (34.0-46.0) % MCV 82.9 (80.0-100.0) fL MCH 27.7 (25.0-35.0) pg MCHC 33.4 (31.0-37.0) g/dL RDW 13.5 (11.5-15.5) % Plt Count 290 (150-450) k/uL MPV 7.7 Neutrophils % 84 % Lymphocytes % 9 % Monocytes % 5 % Eosinophils % 2 % Basophils % 0 % Neutrophils # 11.5 H (1.3-7.7) k/uL Lymphocytes # 1.2 (1.0-4.8) k/uL Monocytes # 0.7 (0-1.0) k/uL Eosinophils # 0.2 (0-0.7) k/uL Basophils # 0.0 (0-0.2) k/uL Sodium (137-145) mmol/L Potassium (3.5-5.1) mmol/L Chloride (98-107) mmol/L Carbon Dioxide (22-30) mmol/L Anion Gap mmol/L BUN (7-17) mg/dL Creatinine (0.52-1.04) mg/dL Est GFR (CKD-EPI)AfAm (>60 ml/min/1.73 sqM) Est GFR (CKD-EPI)NonAf (>60 ml/min/1.73 sqM) Glucose (74-99) mg/dL Calcium (8.4-10.2) mg/dL Total Bilirubin (0.2-1.3) mg/dL AST (14-36) U/L ALT (4-34) U/L Alkaline Phosphatase (38-126) U/L Total Protein (6.3-8.2) g/dL Albumin (3.5-5.0) g/dL Urine Color Yellow Urine Appearance Cloudy H (Clear) Urine pH 5.5 (5.0-8.0) Ur Specific [place] 1.022 (1.001-1.035) Urine Protein Trace H (Negative) Urine Glucose (UA) Negative (Negative) Urine Ketones Negative (Negative) Urine Blood Trace H (Negative) Urine Nitrite Negative (Negative) Urine Bilirubin Negative (Negative) Urine Urobilinogen <2.0 (<2.0) mg/dL Ur Leukocyte Esterase Trace H (Negative) Urine RBC 2 (0-5) /hpf Urine WBC 2 (0-5) /hpf Ur Squamous Epith Cells 9 H (0-4) /hpf Urine Mucus Rare H (None) /hpf Urine HCG, Qual Not Detected (Not Detectd) 06/30/20 Range/Units 19:28 WBC (3.8-10.6) k/uL RBC (3.80-5.40) m/uL Hgb (11.4-16.0) gm/dL Hct (34.0-46.0) % MCV (80.0-100.0) fL MCH (25.0-35.0) pg MCHC (31.0-37.0) g/dL RDW (11.5-15.5) % Plt Count (150-450) k/uL MPV Neutrophils % % Lymphocytes % % Monocytes % % Eosinophils % % Basophils % % Neutrophils # (1.3-7.7) k/uL Lymphocytes # (1.0-4.8) k/uL Monocytes # (0-1.0) k/uL Eosinophils # (0-0.7) k/uL Basophils # (0-0.2) k/uL Sodium 137 (137-145) mmol/L Potassium 4.6 (3.5-5.1) mmol/L Chloride 105 (98-107) mmol/L Carbon Dioxide 20 L (22-30) mmol/L Anion Gap 12 mmol/L BUN 16 (7-17) mg/dL Creatinine 1.08 H (0.52-1.04) mg/dL Est GFR (CKD-EPI)AfAm 85 (>60 ml/min/1.73 sqM) Est GFR (CKD-EPI)NonAf 74 (>60 ml/min/1.73 sqM) Glucose 113 H (74-99) mg/dL Calcium 9.7 (8.4-10.2) mg/dL Total Bilirubin 0.7 (0.2-1.3) mg/dL AST 36 (14-36) U/L ALT 21 (4-34) U/L Alkaline Phosphatase 108 (38-126) U/L Total Protein 7.9 (6.3-8.2) g/dL Albumin 4.5 (3.5-5.0) g/dL Urine Color Urine Appearance (Clear) Urine pH (5.0-8.0) Ur Specific [place] (1.001-1.035) Urine Protein (Negative) Urine Glucose (UA) (Negative) Urine Ketones (Negative) Urine Blood (Negative) Urine Nitrite (Negative) Urine Bilirubin (Negative) Urine Urobilinogen (<2.0) mg/dL Ur Leukocyte Esterase (Negative) Urine RBC (0-5) /hpf Urine WBC (0-5) /hpf Ur Squamous Epith Cells (0-4) /hpf Urine Mucus (None) /hpf Urine HCG, Qual (Not Detectd) Disposition Clinical Impression: Hydronephrosis, Kidney stone Disposition: HOME SELF-CARE Condition: Good Instructions (If sedation given, give patient instructions): Kidney Stones (ED) Additional Instructions: Please take Motrin and Tylenol for pain. Follow-up with your primary care doctor. Return to the emergency room for any worsening symptoms. Is patient prescribed a controlled substance at d/c from ED?: No Referrals: Lencho Quiroz III, MD [Primary Care Provider] - 1-2 days
[2020-06-30 19:36] LABS: Basophils % (A) 0 %; Eosinophils # (A) 0.2 k/uL (0-0.7); Eosinophils % (A) 2 %; HCT 45.2 % (34.0-46.0); HGB 15.1 gm/dL (11.4-16.0); Lymphocytes # (A) 1.2 k/uL (1.0-4.8); Lymphocytes % (A) 9 %; MCH 27.7 pg (25.0-35.0); MCHC 33.4 g/dL (31.0-37.0); MCV 82.9 fL (80.0-100.0); Mean Platelet Volume 7.7; Monocytes # (A) 0.7 k/uL (0-1.0); Monocytes % (A) 5 %; Neutrophils # (A) 11.5 k/uL (1.3-7.7); Neutrophils % (A) 84 %; Platelet Count 290 k/uL (150-450); RBC 5.45 m/uL (3.80-5.40); RDW 13.5 % (11.5-15.5); WBC 13.6 k/uL (3.8-10.6)
[2020-06-30 19:51] LABS: Albumin 4.5 g/dL (3.5-5.0); Calcium 9.7 mg/dL (8.4-10.2); Potassium 4.6 mmol/L (3.5-5.1); Total Bilirubin 0.7 mg/dL (0.2-1.3); Total Protein 7.9 g/dL (6.3-8.2)
--- NOTE | 2020-06-30 20:17 | CT ---
EXAMINATION TYPE: CT abdomen pelvis wo con DATE OF EXAM: 06/30/2020 COMPARISON: 09/24/2018 HISTORY: right flank pain CT DLP: 1074.4 mGycm Automated exposure control for dose reduction was used. Images obtained from the diaphragm to the floor the pelvis with no contrast. Lung bases are clear of consolidation. There is no pleural effusion. There is no pericardial effusion . Heart size is normal. Liver spleen pancreas stomach appear intact and bile ducts are not dilated. There are clips from chol ecystectomy. There is no adrenal mass. Kidneys have normal size. There is right-sided hydronephrosis and hydrouret er. Distal right ureter is not well visualized. The bladder distends smoothly. There is 4 mm calcific ation in the posterior midline urinary bladder consistent with small bladder calculus. There is no in guinal hernia. Urinary bladder has normal size. The uterus is anteverted. There is no pelvic mass. Th ere is no free fluid in the pelvis. Appendix not definitely seen. No sign of thickened appendix. There is no mesenteric edema. There is no ascites or free air. There is no bowel obstruction. The lum bar vertebra have normal alignment. Disc spaces are normal. There is no compression fracture. Posteri or elements are intact. The bony pelvis is intact. Hip joints appear normal. IMPRESSION: Right-sided hydronephrosis and hydroureter. There is possible calculus in the urinary bladder which c ould BE stone already passed into the bladder. Hydronephrosis is new compared to old exam.
[2020-06-30 20:43] VITALS: BP 128/92; PULSE 78; RESP 16
== END 2020-06-30 20:46 | disposition home or self-care (01) ==
LOC: EC 16:36
DX: N13.30 Unspecified hydronephrosis (principal); Z87.891 Personal history of nicotine dependence
CPT/HCPCS: 36415; 80053; 85025; 81001; 81025; 74176; 99284; 96374; 96361; J1885

== ENCOUNTER 2020-09-08 20:25 | Inpatient (IN) | payer OTHER ==
--- NOTE | 2020-09-08 20:35 | ED ---
General Adult HPI - General Stated complaint: Chest Pain Time Seen by Provider: 09/08/20 20:28 Source: patient, RN notes reviewed, old records reviewed - History of Present Illness Initial comments: 20-year-old female presenting with chest pain which is central chest, began 30 minutes prior to arrival with associated nausea. She has no previous history of CAD. No strong family history. She does use vaporized tobacco products and is obese. She is a nondiabetic, no hypertension no illicit drugs. Pain does not radiate described as substernal. Transported by EMS. - Related Data Home Medications Medication Instructions Recorded Confirmed Etonogestrel/Ethinyl Estradiol 1 ring VG Q28D 09/08/20 09/08/20 [Nuvaring Vaginal Ring] Levothyroxine Sodium [Synthroid] 50 mcg PO DAILY 09/08/20 09/08/20 Allergies Allergy/AdvReac Type Severity Reaction Status Date / Time No Known Allergies Allergy Verified 06/30/20 16:53 Review of Systems ROS Statement: Those systems with pertinent positive or pertinent negative responses have been documented in the HPI. ROS Other: All systems not noted in ROS Statement are negative. Past Medical History Past Medical History: Thyroid Disorder History of Any Multi-Drug Resistant Organisms: None Reported Past Surgical History: Section, Cholecystectomy Past Anesthesia/Blood Transfusion Reactions: No Reported Reaction Past Psychological History: No Psychological Hx Reported Smoking Status: Former smoker Past Alcohol Use History: None Reported Past Drug Use History: None Reported - Past Family History Mother History Unknown: Yes Family Medical History: Hypertension Additional Family Medical History / Comment(s): ovarian cancer, christiano, breast tumor Father Family Medical History: Hyperlipidemia, Hypertension General Exam General appearance: alert, in no apparent distress Head exam: Present: atraumatic, normocephalic Eye exam: Present: normal appearance, PERRL ENT exam: Present: normal exam Neck exam: Present: normal inspection. Absent: tenderness, meningismus Respiratory exam: Present: normal lung sounds bilaterally. Absent: respiratory distress, wheezes Cardiovascular Exam: Present: regular rate, normal rhythm GI/Abdominal exam: Present: soft. Absent: distended, tenderness, guarding Extremities exam: Present: normal inspection, normal capillary refill. Absent: pedal edema Neurological exam: Present: alert, oriented X3, CN II-XII intact. Absent: motor sensory deficit Psychiatric exam: Present: anxious Skin exam: Present: warm, dry, intact. Absent: cyanosis, diaphoretic Course Vital Signs 09/08/20 20:31 Temperature 98.0 F Pulse Rate 95 Respiratory 18 Rate Blood Pressure 141/97 O2 Sat by Pulse 99 Oximetry - Reevaluation(s) Reevaluation #1: 09/08/20 20:49 Patient admitted to [facility]. EKG Findings - EKG Comments: EKG Findings:: EKG: Acute NH, inferior elevation, reciprocal change in aVL and V2. Rate of 88, PA interval 146, QRS duration 94, QTC 438. Medical Decision Making - Medical Decision Making 20-year-old female with chest pain, nausea which began 30 minutes prior to arrival. Patient was given aspirin and nitroglycerin by EMS. EKG showing concern for ischemia by EMS, EKG obtained immediately upon arrival showing inferior ST segment elevation with reciprocal change. labor relations director is activated, case is discussed with Dr. Ross who will take the patient for heart catheterization. - Lab Data Result diagrams: 09/08/20 20:30 Lab Results 09/08/20 Range/Units 20:30 WBC 8.4 (3.8-10.6) k/uL RBC 5.36 (3.80-5.40) m/uL Hgb 15.3 (11.4-16.0) gm/dL Hct 44.4 (34.0-46.0) % MCV 82.7 (80.0-100.0) fL MCH 28.5 (25.0-35.0) pg MCHC 34.5 (31.0-37.0) g/dL RDW 13.5 (11.5-15.5) % Plt Count 250 (150-450) k/uL MPV 7.9 Neutrophils % 56 % Lymphocytes % 30 % Monocytes % 8 % Eosinophils % 2 % Basophils % 1 % Neutrophils # 4.7 (1.3-7.7) k/uL Lymphocytes # 2.5 (1.0-4.8) k/uL Monocytes # 0.7 (0-1.0) k/uL Eosinophils # 0.2 (0-0.7) k/uL Basophils # 0.1 (0-0.2) k/uL Disposition Clinical Impression: STEMI (ST elevation myocardial infarction) Disposition: ADMITTED IP TO THIS HOSP Condition: Serious Is patient prescribed a controlled substance at d/c from ED?: No Decision to Admit Reason: Admit from EC Decision Date: 09/08/20 Decision Time: 20:35
[2020-09-08] MEDS ORDERED: ATORVASTATIN 80 MG TAB PO SCH (20:37)
[2020-09-08] MEDS ORDERED: ASPIRIN 325 MG TAB PO SCH (20:37)
[2020-09-08] MEDS ORDERED: HEPARIN SODIUM 1,000 UN/ML (10ML VL) IVP STA (20:40)
[2020-09-08 20:45] LABS: Basophils # (A) 0.1 k/uL (0-0.2); Basophils % (A) 1 %; Eosinophils # (A) 0.2 k/uL (0-0.7); Eosinophils % (A) 2 %; HCT 44.4 % (34.0-46.0); HGB 15.3 gm/dL (11.4-16.0); Lymphocytes # (A) 2.5 k/uL (1.0-4.8); Lymphocytes % (A) 30 %; MCH 28.5 pg (25.0-35.0); MCHC 34.5 g/dL (31.0-37.0); MCV 82.7 fL (80.0-100.0); Mean Platelet Volume 7.9; Monocytes # (A) 0.7 k/uL (0-1.0); Monocytes % (A) 8 %; Neutrophils # (A) 4.7 k/uL (1.3-7.7); Neutrophils % (A) 56 %; Platelet Count 250 k/uL (150-450); RBC 5.36 m/uL (3.80-5.40); RDW 13.5 % (11.5-15.5); WBC 8.4 k/uL (3.8-10.6)
[2020-09-08] MEDS ORDERED: MORPHINE SULFATE 2 MG/ML SYRINGE IVP STA (20:45)
[2020-09-08] MEDS: MORPHINE SULFATE 4 MG/ML SYRINGE IVP PRN (20:46)
[2020-09-08] MEDS ORDERED: VERAPAMIL 2.5 MG/ML 2 ML AMP ONE (20:49)
[2020-09-08] MEDS ORDERED: LIDOCAINE 1% INJ 10MG/ML (20 ML MDV) ONE (20:49)
[2020-09-08] MEDS ORDERED: HEPARIN SODIUM 1,000 UN/ML (10ML VL) ONE ×2 (20:49→22:12)
[2020-09-08 20:56] LABS: Potassium 3.9 mmol/L (3.5-5.1)
[2020-09-08 20:57] LABS: ALT 24 U/L (4-34); AST 27 U/L (14-36); African American GFR (CKD) >90 (>60 ml/min/1.73 sqM); Albumin 4.1 g/dL (3.5-5.0); Alkaline Phosphatase 95 U/L (38-126); Anion Gap 10 mmol/L; Blood Urea Nitrogen 12 mg/dL (7-17); Calcium 9.5 mg/dL (8.4-10.2); Carbon Dioxide 22 mmol/L (22-30); Chloride 107 mmol/L (98-107); Glucose 100 mg/dL (74-99); Magnesium 1.9 mg/dL (1.6-2.3); Non-African American GFR(CKD) >90 (>60 ml/min/1.73 sqM); Sodium 139 mmol/L (137-145); Total Bilirubin 0.1 mg/dL (0.2-1.3); Total Protein 6.9 g/dL (6.3-8.2)
--- NOTE | 2020-09-08 21:01 | XR ---
EXAMINATION TYPE: XR chest 1V portable DATE OF EXAM: 09/08/2020 COMPARISON: 08/07/2019 HISTORY: Fever TECHNIQUE: Single view FINDINGS: Heart and mediastinum are normal. Lungs are clear. Diaphragm is normal. Bony thorax is inta ct. There are chest leads. IMPRESSION: Normal chest. No change.
[2020-09-08] MEDS ORDERED: SODIUM CHLORIDE 0.9% 1,000 ML IV ONE (21:03)
[2020-09-08 21:08] LABS: Partial Thromboplastin Time 22.3 sec (22.0-30.0); Prothrombin Time 10.3 sec (9.0-12.0)
[2020-09-08] MEDS ORDERED: LIDOCAINE 1% INJ 10MG/ML (20 ML MDV) SQ ONE (21:16)
[2020-09-08] MEDS ORDERED: MIDAZOLAM 2 MG/2 ML VIAL IV ONE ×2 (21:20)
[2020-09-08] MEDS ORDERED: VERAPAMIL SYRINGE (5 MG/10 ML) INTRAARTER ONE (21:20)
[2020-09-08] MEDS ORDERED: METOPROLOL TARTRATE 5 MG/5 ML VIAL IVP ONE (21:32)
[2020-09-08] MEDS ORDERED: HEPARIN SODIUM 1,000 UN/ML (10ML VL) IV ONE ×2 (21:32→21:36)
[2020-09-08] MEDS: METOPROLOL TARTRATE 5 MG/5 ML VIAL IVP ONE ×2 (21:34→22:02)
[2020-09-08] MEDS ORDERED: HYDROmorphone 0.5 MG/0.5 ML SYRINGE IVP ONE ×2 (21:35→21:36)
[2020-09-08] MEDS ORDERED: IOPAMIDOL-370 100ML BTL INJ ONE ×2 (21:40→22:17)
[2020-09-08] MEDS ORDERED: CLOPIDOGREL 75 MG TAB ONE (21:56)
[2020-09-08] MEDS ORDERED: CLOPIDOGREL 75 MG TAB PO ONE (22:00)
[2020-09-08 22:35] LABS: Glucose,Whole Blood 93 mg/dL (75-99)
[2020-09-08] MEDS ORDERED: ALPRAZolam 0.25 MG TAB PO PRN (22:41)
[2020-09-08] MEDS: ATORVASTATIN 40 MG TAB PO SCH (23:29)
[2020-09-08] MEDS: METOPROLOL TARTRATE 25 MG TAB PO SCH (23:29)
[2020-09-08] MEDS: SODIUM CHLORIDE 0.9% 1,000 ML IV SCH (23:57)
[2020-09-09] MEDS: MORPHINE SULFATE 4 MG/ML SYRINGE IVP PRN (00:46)
[2020-09-09] MEDS ORDERED: ONDANSETRON 4 MG/2 ML VIAL IVP PRN (00:57)
[2020-09-09 05:17] LABS: Basophils # (A) 0.1 k/uL (0-0.2); Basophils % (A) 1 %; Eosinophils # (A) 0.1 k/uL (0-0.7); Eosinophils % (A) 1 %; HCT 40.8 % (34.0-46.0); HGB 13.4 gm/dL (11.4-16.0); Lymphocytes # (A) 1.7 k/uL (1.0-4.8); Lymphocytes % (A) 17 %; MCH 27.6 pg (25.0-35.0); MCHC 32.8 g/dL (31.0-37.0); MCV 84.2 fL (80.0-100.0); Mean Platelet Volume 7.6; Monocytes # (A) 0.6 k/uL (0-1.0); Monocytes % (A) 6 %; Neutrophils # (A) 7.4 k/uL (1.3-7.7); Neutrophils % (A) 74 %; Platelet Count 250 k/uL (150-450); RBC 4.85 m/uL (3.80-5.40); RDW 13.8 % (11.5-15.5)
[2020-09-09 05:25] LABS: African American GFR (CKD) >90 (>60 ml/min/1.73 sqM); Anion Gap 6 mmol/L; Blood Urea Nitrogen 9 mg/dL (7-17); Calcium 8.9 mg/dL (8.4-10.2); Carbon Dioxide 22 mmol/L (22-30); Chloride 110 mmol/L (98-107); Glucose 108 mg/dL (74-99); Magnesium 1.9 mg/dL (1.6-2.3); Non-African American GFR(CKD) >90 (>60 ml/min/1.73 sqM); Potassium 4.4 mmol/L (3.5-5.1); Sodium 138 mmol/L (137-145)
[2020-09-09] MEDS ORDERED: MAGNESIUM SULFATE-D5W PMX 1 GM in DEXTROSE/WATER 1 100ML.BAG IVPB ONE (05:44)
--- NOTE | 2020-09-09 07:53 | CC ---
CARDIAC CATHETERIZATION REPORT DATE OF SERVICE: 09/08/2020. PROCEDURE PERFORMED: 1. Left heart catheterization and coronary angiography. 2. PTCA of the distal circumflex and circumflex marginal coronary artery. PERFORMED BY: Dr. Ramila Ross. SEDATION: Moderate conscious sedation time was 83 minutes. Patient was administered Versed. Oxygen saturation, hemodynamics and EKG were monitored closely. CLINICAL INFORMATION: Juany Judd is a 20-year-old lady came into the hospital with chest pain inferior ST elevation and clinical picture was that of an inferior ST elevation. She was advised cardiac cath immediately. Risks, benefits, options, rationale were explained. The possibility of spontaneous coronary dissection was entertained. PROCEDURE NOTE: Under local anesthesia and strict aseptic precautions, a 6-Niuean introducer was placed in the right radial artery using the micropuncture technique. I used a right Esequiel guide catheter to cannulate the right coronary artery and I used a left 3.5 curved Esequiel catheter for left coronary artery. The same right catheter was used to check LV pressure but LV gram was not performed. I noted that there was a significant lesion in the circumflex distally before bifurcation of the last obtuse marginal which was a fair caliber vessel. I performed intervention on the vessel expeditiously. PTCA was performed. No stents were deployed. Subsequently, the sheath was taken out and TR band applied as per protocol with the saturation of the fingers of the right hand of more than 95%. The patient tolerated procedure well. Findings and details were discussed with the patient and her boyfriend who was in the waiting room. CARDIAC CATHETERIZATION FINDINGS: Left ventricular end-diastolic pressure was 15 mmHg without any gradient across aortic valve. CORONARY ANGIOGRAPHY FINDINGS: RIGHT CORONARY ARTERY: Technically a good caliber, good distribution vessel, probably a codominant system or nondominant system. No significant disease in the proximal portion. Distally bifurcates into PDA and PLV, both of which are somewhat small and there is no significant disease in the distal branches of RCA, which seems to be a nondominant vessel. LEFT MAIN CORONARY ARTERY: Very short vessel that immediately bifurcates into LAD and circumflex. No significant disease. LEFT ANTERIOR DESCENDING CORONARY ARTERY: Good caliber vessel extends along the anterior wall, gives off a large diagonal branch, several septal branches, runs all the way to the apex supplying a sizable amount of myocardium. No significant disease in the LAD system is noted. LEFT POSTERIOR CIRCUMFLEX CORONARY ARTERY: This is a dominant vessel, gives off a groove branch which has minor irregularities and continues distally but divides into PDA and PLV. The PLV branch has a subtotal occlusion with sluggish flow and it seems to divides into 2 branches. The PDA distribution vessel seems to be free of significant disease. Left ventriculogram was not performed. FINAL IMPRESSION: This patient has a codominant or left dominant system. Slightly elevated filling pressures. No gradient across aortic valve and no significant disease in the LAD or nondominant RCA. There is a 99% stenosis involving the circumflex PLV branch which I believe is the culprit lesion. RECOMMENDATIONS: I recommended PCI and proceeded to perform the procedure. I was concerned that this could be a spontaneous coronary dissection in a patient who vapes tobacco and also is on estrogen with a vaginal estrogen ring. PCI: The existing 3.5 left Esequiel catheter, which was a guide catheter was used for the procedure. A run-through wire was used to cross the lesion. A 2.5 caliber Trek balloon of 12 mm length was used to dilate the lesion. The PLV branch, the superior and inferior branch were both separately dilated. There was a lot of staining. Finally after prolonged inflation and multiple inflations, the staining resolved. Eventually, excellent angiographic result was achieved without complication. Patient had complete resolution of chest pain and FRED-3 flow and also had EKG was normalized. Excellent angiographic result was achieved of the PLV branch. After some deliberation, I decided not to deploy a stent because stent would be very close to the bifurcation and there was a good chance of jeopardizing the inferior branch which was actually equally a good caliber vessel. I therefore completed the procedure with a plain balloon angioplasty with sensationally good result and no complication. Patient was chest pain free, had a FRED-3 flow and normalization of EKG. Results were discussed with the patient and family. She received a total of 7000 units of heparin, but when I got the initial ACT, it was a very high above the measurable limit, but a repeat one was 199. I therefore gave additional 2000 units of heparin. Repeat ACT was not performed. The sheath was taken out. The details of the procedure were discussed with the patient and her boyfriend. She was sent to the ICU in a stable condition. MMODL / IJN: [id number] /
--- NOTE | 2020-09-09 08:21 | CONS ---
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 She vapes tobacco and she uses an estrogen ring for control. She was doing well and suddenly developed what she described as a sensation of chest pressure that came on when she bent down to bead picker something. After this pain persisted, her mother called 911 and she came into the hospital, was found to have inferior ST elevation, hemodynamically stable. There was also some reciprocal ST depression. Clinical picture was that of an inferior ST-elevation MD. She has hypothyroidism, has had 5 months ago she had a section and a 5-month-old baby. She also had previous cholecystectomy. At the time of my evaluation, she is in the lab aid, complains of chest pressure 6 to 7/10 persistent and there is inferior ST elevation. PAST MEDICAL HISTORY: 1. Hypothyroidism. 2. History of a section delivery 5 months ago. She has a healthy 5-month-old boy. 3. Cholecystectomy. SOCIAL HISTORY: Patient vapes on a regular basis, but does not drink alcohol regularly. PHYSICAL EXAMINATION: On examination, blood pressure is 130/70, pulse rate is about 96 per minute, regular. HEENT unremarkable. Fundus was not examined by me. NECK is supple. No JVD. I do not hear a carotid bruit. HEART exam reveals S1, S2 heard normally. No significant rub, murmur or gallop. Heart sounds are distant. LUNGS are clear. ABDOMEN is soft, nontender. Lower EXTREMITIES reveal normal pulses. No edema. CENTRAL NERVOUS SYSTEM is grossly within normal limits. EKG revealed sinus mechanism with inferior ST elevation. IMPRESSION: 1. 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 2. Hypothyroidism. RECOMMENDATIONS: I recommend coronary angiography and PCI if indicated. Risks, benefits, options, rationale were explained. I proceeded to perform procedure expeditiously. The only person available was her boyfriend with whom I spoke after the procedure. MMODL / IJN: [id number] /
[2020-09-09] MEDS: ASPIRIN 81 MG PO SCH (08:58)
[2020-09-09] MEDS: CLOPIDOGREL 75 MG TAB PO SCH (08:58)
[2020-09-09] MEDS: ATORVASTATIN 40 MG TAB PO SCH (08:58)
[2020-09-09] MEDS: LOSARTAN 50 MG TAB PO SCH (08:58)
[2020-09-09] MEDS: METOPROLOL TARTRATE 25 MG TAB PO SCH ×2 (08:58→23:19)
[2020-09-09] MEDS ORDERED: ATORVASTATIN 80 MG TAB PO SCH (09:00)
[2020-09-09] MEDS ORDERED: ASPIRIN 325 MG TAB PO SCH (09:00)
[2020-09-09 09:59] LABS: Chol/HDL Ratio 3.29; Cholesterol 135 mg/dL (0-200); LDL Cholesterol,Calculated 71.8 mg/dL (0.0-131.0)
[2020-09-09] MEDS ORDERED: HYDROmorphone 0.5 MG/0.5 ML SYRINGE IVP STA (13:42)
[2020-09-09] MEDS ORDERED: ACETAMINOPHEN TAB 500 MG TAB PO PRN (14:28)
[2020-09-09] MEDS ORDERED: HYDROcodone/APAP 5-325MG 1 EACH TAB PO PRN (14:28)
[2020-09-09 15:07] LABS: Appearance,Urine Clear (Clear); Bilirubin,Urine Negative (Negative); Blood,Urine Negative (Negative); Color,Urine Light Yellow; Glucose,Urine (UA) Negative (Negative); Ketones,Urine Negative (Negative); Leukocyte Esterase,Urine Negative (Negative); Nitrite,Urine Negative (Negative); PH, Urine 6.5 (5.0-8.0); Protein,Urine Negative (Negative); Specific Gravity,Urine 1.013 (1.001-1.035); Urobilinogen,Urine <2.0 mg/dL (<2.0)
--- NOTE | 2020-09-09 15:21 | HP ---
HISTORY AND PHYSICAL CHIEF COMPLAINT: Chest pain. HISTORY OF PRESENT ILLNESS: This 20-year-old woman with a past medical history of multiple medical problems including hypothyroidism, history of cholecystectomy, history of depression, history of vaping, history of THC being followed by Dr. Quiroz in the outpatient setting, is complaining of chest pain. The chest pain is felt in the anterior part of chest, 10/10 in intensity, which the patient felt like somebody sitting on the chest. The patient was found to have ST elevation in inferior leads and some changes. The patient underwent a cardiac catheterization which showed 99% stenosis involving the circumflex PLV. The patient underwent PTCA of the distal circumflex and circumflex marginal coronary artery by Dr. Ramila Ross. Patient monitored in ICU at this time. There is no history of fever, rigors. No history of headache, loss of consciousness, seizures at this time. PAST MEDICAL HISTORY: History of hypothyroidism, history of section, history of cholecystectomy, history of depression, history of vaping, history of nicotine dependence. MEDICATIONS: Synthroid 50 mcg p.o. daily, Estradiol 1 mg vaginal ring Q 28 days. ALLERGIES: None. FAMILY HISTORY: History of valvular leak in mother. Otherwise, no significant cardiorespiratory illness or premature coronary artery disease in the family. REVIEW OF SYSTEMS: ENT: No diminished hearing. No diminished vision. CARDIOVASCULAR system as mentioned earlier. RESPIRATORY: As mentioned earlier. GI: No nausea or vomiting. : No dysuria. NERVOUS SYSTEM: No numbness, weakness. ALLERGY/IMMUNOLOGY: No asthma or hayfever. MUSCULOSKELETAL as mentioned earlier. HEMATOLOGY/ONCOLOGY: No history of anemia. ENDOCRINE: As mentioned earlier. CONSTITUTIONAL: As mentioned earlier. DERMATOLOGY: Negative. RHEUMATOLOGY: Negative. PSYCHIATRIC: As mentioned earlier. PHYSICAL EXAMINATION: The patient is alert and oriented times three. Pulse 90, blood pressure 125/77, respiration 13, temperature 98.2, pulse ox 97% on room air. HEENT: Conjunctivae normal. NECK: No JVD. CARDIOVASCULAR: S1, S2 muffled. RESPIRATORY: Breath sounds diminished in the bases. No rhonchi. No crackles. ABDOMEN: Soft, obese, nontender. No mass palpable. LEGS: No edema. No swelling. NERVOUS SYSTEM: Higher functions as mentioned earlier. Moves all four limbs. No focal deficits. LYMPHATICS: No lymph nodes palpable in the neck, axillae or groin. SKIN: No ulcer, rash or bleeding. JOINTS: No active deforming arthropathy. LABS: CBC within normal limits. Glucose is 100 and total bilirubin 0.1. Troponins are 47.600. ASSESSMENT: 1. Chest pain with acute ST-segment elevation myocardial infarction status post cardiac catheterization, PTCA of the distal circumflex and circumflex marginal coronary artery. 2. Troponin 47.600. 3. Hypothyroidism. 4. History of section. 5. History of cholecystectomy. 6. History of hypotension with epidural. 7. History of depression. 8. History of vaping. 9. History of THC. 10.Obesity with body mass index of 43.6. RECOMMENDATIONS AND DISCUSSION: This 20-year-old woman who presented with multiple complex medical issues, we will monitor the patient closely, continue the current medications. Continue with dual antiplatelet treatment. The cholesterol panel is normal at this time. Acute myocardial infarction at the patient's age is unusual even though the patient has multiple risk factors. We will continue to monitor along with Cardiology. Continue the beta blockers. Continue the home medications. DVT prophylaxis. Prognosis guarded because of multiple complex medical issues. Smoking and vaping cessation has been recommended. 2D echo has been ordered. The patient has received both Covid vaccine Moderna vaccine about a few months ago. The patient used to work in [employer] like last year but there was no history of any contact with [employer] recently. MMODL / IJN: [id number] / MTDD
[2020-09-09 15:48] LABS: Amphetamine Screen,Urine Not Detected (NotDetected); Barbiturate Screen,Urine Not Detected (NotDetected); Benzodiazepines Screen,Urine Detected (NotDetected); Cocaine Screen,Urine Not Detected (NotDetected); Methadone Screen, Urine Not Detected (NotDetected); Opiate Screen,Urine Detected (NotDetected); Oxycodone Screen, Urine Not Detected (NotDetected); Phencyclidine Screen,Urine Not Detected (NotDetected); Tricyclic Antidepressant,Urine Not Detected (NotDetected); Urn Cannabinoid Scrn Detected (NotDetected)
[2020-09-09] MEDS: SODIUM CHLORIDE 0.9% 1,000 ML IV SCH (15:50)
[2020-09-09 15:54] LABS: C Reactive Protein 2.2 mg/dL (<1.0)
--- NOTE | 2020-09-09 19:23 | PN ---
PROGRESS NOTE DATE OF SERVICE: 09/09/2020. HISTORY: This is a 20-year-old young lady who came in with acute inferior [place], underwent PTCA of a circumflex vessel. Post procedure she did well. She had mild chest discomfort, seems very atypical. EKG revealed sinus mechanism, no evidence of any ST-segment elevation. Her right radial site is clean and dry with a good pulse. She is doing well. I have advised her that we will continue current medical regimen. I reviewed all her medications. I am recommending that she should avoid using estrogen and she is going to try some other non-estrogen control methods. PHYSICAL EXAM: Vitals are stable no JVD. S1, S2 heard normally. Lungs are clear. Abdomen is soft, nontender. Lower extremities reveal normal pulses. No edema. Central nervous system normal. Right radial site is clean and dry. PLAN: Perform echocardiogram. Increase activity. Move her to telemetry tomorrow. MMODL / IJN: [id number] /
[2020-09-09] MEDS: TEMAZEPAM 15 MG CAP PO SCH ×2 (23:19)
[2020-09-10 05:00] LABS: Basophils # (A) 0.1 k/uL (0-0.2); Basophils % (A) 1 %; Eosinophils # (A) 0.3 k/uL (0-0.7); Eosinophils % (A) 3 %; HCT 38.2 % (34.0-46.0); Lymphocytes # (A) 2.3 k/uL (1.0-4.8); Lymphocytes % (A) 25 %; MCH 28.5 pg (25.0-35.0); Mean Platelet Volume 7.7; Monocytes # (A) 0.5 k/uL (0-1.0); Monocytes % (A) 6 %; Neutrophils # (A) 5.9 k/uL (1.3-7.7); Neutrophils % (A) 65 %; Platelet Count 216 k/uL (150-450); RBC 4.55 m/uL (3.80-5.40); RDW 13.6 % (11.5-15.5); WBC 9.1 k/uL (3.8-10.6)
[2020-09-10 05:19] LABS: African American GFR (CKD) >90 (>60 ml/min/1.73 sqM); Anion Gap 5 mmol/L; Blood Urea Nitrogen 11 mg/dL (7-17); Calcium 9.1 mg/dL (8.4-10.2); Carbon Dioxide 24 mmol/L (22-30); Chloride 108 mmol/L (98-107); Glucose 94 mg/dL (74-99); Non-African American GFR(CKD) >90 (>60 ml/min/1.73 sqM); Potassium 4.4 mmol/L (3.5-5.1); Sodium 137 mmol/L (137-145)
[2020-09-10] MEDS: LEVOTHYROXINE 50 MCG TAB PO SCH (07:03)
--- NOTE | 2020-09-10 07:11 | ECHOF ---
Referral Reason:Inferior STEMI MEASUREMENTS -------- HEIGHT: 165.1 cm WEIGHT: 117.9 kg BP: 134/84 RVIDd: 2.8 cm (< 3.3) IVSd: 1.0 cm (0.6 - 1.1) LVIDd: 4.4 cm (3.9 - 5.3) LVPWd: 1.1 cm (0.6 - 1.1) IVSs: 1.4 cm LVIDs: 3.2 cm LVPWs: 1.4 cm LAESV Index (A-L): 13.41 ml/m Ao Diam: 2.8 cm (2.0 - 3.7) AV Cusp: 2.0 cm (1.5 - 2.6) LA Diam: 2.9 cm (2.7 - 3.8) MV EXCURSION: 19.783 mm (> 18.000) MV EF SLOPE: 141 mm/s (70 - 150) EPSS: 0.9 cm MV E Rogelio: 0.97 m/s MV DecT: 193 ms MV A Rogelio: 0.54 m/s MV E/A Ratio: 1.80 AR PHT: 1030 ms RAP: 5.00 mmHg RVSP: 44.50 mmHg FINDINGS -------- This was a technically difficult study with suboptimal views. The left ventricular size is normal. Left ventricular wall thickness is normal. Overall left vent ricular systolic function is mildly impaired with, an EF between 45 - 50 %. Basal inferior LV wall motion is hypokinetic. Mid lateral LV wall motion is hypokinetic. The right ventricle is normal in size. The left atrial size is normal. Normal LA size by volume 22+/-6 ml/m2. The right atrial size is normal. xx ml of Lumason was utilized for enhancement of images. The aortic valve was not well visualized. There is mild aortic regurgitation. The mitral valve is normal. Mild mitral regurgitation is present. The tricuspid valve appears structurally normal. Mild tricuspid regurgitation present. There is m ild pulmonary hypertension. The right ventricular systolic pressure, as measured by Doppler, is 44. 50mmHg. There is no pulmonic regurgitation present. The aortic root size is normal. IVC Not well visulized. There is no pericardial effusion. CONCLUSIONS -------- 1. The left ventricular size is normal. 2. Left ventricular wall thickness is normal. 3. Basal inferior LV wall motion is hypokinetic. 4. Mid lateral LV wall motion is hypokinetic. 5. There is mild aortic regurgitation. 6. Mild mitral regurgitation is present. 7. Mild tricuspid regurgitation present. 8. There is mild pulmonary hypertension. 9. The right ventricular systolic pressure, as measured by Doppler, is 44.50mmHg. 10. There is no pericardial effusion. COKE DRAWER: Alma Win RDCS
[2020-09-10] MEDS: PANTOPRAZOLE 40 MG TABLET PO SCH (08:11)
[2020-09-10] MEDS: ATORVASTATIN 40 MG TAB PO SCH (08:11)
[2020-09-10] MEDS: LOSARTAN 50 MG TAB PO SCH (08:11)
[2020-09-10] MEDS: ASPIRIN 81 MG PO SCH (08:11)
[2020-09-10] MEDS: CLOPIDOGREL 75 MG TAB PO SCH (08:11)
[2020-09-10] MEDS: METOPROLOL TARTRATE 25 MG TAB PO SCH ×2 (08:12→21:02)
[2020-09-10 10:40] LABS: Ferritin 20.9 ng/mL (10.0-291.0)
--- NOTE | 2020-09-10 11:16 | PN ---
PROGRESS NOTE This is a 20-year-old lady with acute inferior [place] status post PTCA. Probable spontaneous coronary dissection. She is doing well this morning. No chest pain. Has some pleuritic discomfort on deep breathing. I will start her on colchicine 0.6 mg b.i.d., increase activity and plan for discharge tomorrow. EXAMINATION: Echo revealed ejection fraction of 45-50 percent with mild inferior wall hypokinesia. Vital signs are stable, no JVD. S1, S2 heard normally. Lungs are clear. Abdomen and lower chest exam unremarkable. Central nervous system grossly within normal limits. MMODL / IJN: [id number] /
[2020-09-10] MEDS: COLCHICINE 0.6 MG EACH PO SCH ×2 (11:51→21:02)
--- NOTE | 2020-09-10 14:20 | PN ---
PROGRESS NOTE DATE OF SERVICE: 09/10/2020 HISTORY: This 20-year-old woman was sent for acute ST-segment elevation myocardial infarction, is being closely monitored at this time. The patient is thought to have a coronary artery dissection by Cardiology. Patient underwent PTCA without any stents at this time. The patient is in from Dr. Kelly evaluation and is basically negative and COVID- 19 test is also negative. The patient has taken COVID-19 vaccine previously. No chest pain. No palpitations. PAST MEDICAL HISTORY: Reviewed. REVIEW OF SYSTEMS: Cardio system as above. Respiratory: Normal respiration. GI: As mentioned. : No symptoms. MEDICAL DECISION MAKING: Include Tylenol, [place], Xanax, aspirin, Lipitor, Plavix, Colcrys, Synthroid. ALLERGIES: None known. PHYSICAL EXAMINATION: VITAL SIGNS: Pulse 98, blood pressure 111/58, respiration, temperature 98.6, pulse ox 98% on room air. HEENT: Unremarkable. HEART: Shows pressure in the bases. LUNGS: A few scattered rhonchi. No crackles. ABDOMEN: Soft, nontender. No mass. LEGS: No problems with joints. No muscle pain. LYMPHATICS: None. SKIN: No active deforming. LABS: A CBC, BMP noted. Troponin 45.2, C-reactive protein 7.2. ASSESSMENT: 1. Chest pain acute ST-elevation myocardial infarctions in status post cardiac catheterization, PTCA of the difficult circumflex marginal coronary artery. 2. Troponin 47.37. Possible coronary artery dissection. 3. Hypothyroidism, history of stent. 4. History of cholecystectomy and cystectomy. 5. History of hypotension. 6. History of depression. 7. History of deep VT. 8. History of THC. 9. Obesity with body mass index 43.2. RECOMMENDATIONS: Continue with dual antiplatelet treatment. Continue with Lipitor. Continue with the rest of the medications. Continue with levothyroxine. The prognosis is guarded because of multiple complex medical issues. Closely follow with Cardiology, further recommendations to follow. MMODL / IJN: [id number] /
[2020-09-10] MEDS: TEMAZEPAM 15 MG CAP PO SCH (21:02)
[2020-09-11] MEDS: LEVOTHYROXINE 50 MCG TAB PO SCH (07:03)
[2020-09-11] MEDS: PANTOPRAZOLE 40 MG TABLET PO SCH (07:03)
[2020-09-11 08:28] VITALS: TEMP 98.2
[2020-09-11] MEDS: ASPIRIN 81 MG PO SCH (08:31)
[2020-09-11] MEDS: METOPROLOL TARTRATE 25 MG TAB PO SCH (08:31)
[2020-09-11] MEDS: ATORVASTATIN 40 MG TAB PO SCH (08:31)
[2020-09-11] MEDS: CLOPIDOGREL 75 MG TAB PO SCH (08:31)
[2020-09-11] MEDS: LOSARTAN 50 MG TAB PO SCH (08:31)
[2020-09-11] MEDS: COLCHICINE 0.6 MG EACH PO SCH (09:22)
[2020-09-11 11:20] VITALS: BP 130/86; PULSE 78; RESP 20
--- NOTE | 2020-09-11 12:45 | P.PN ---
Subjective This is a pleasant 20-year-old female who presented with an acute ST elevated VA secondary to spontaneous dissection s/p PCI to the PLV branch. She has been up ambulating around the room and even cleaning the bathroom to keep herself busy. She has had no symptoms of chest pain, shortness of breath, dizziness or palpitations. Blood pressure 130/86 heart rate 78 afebrile and maintaining oxygen saturation on room air. GENERAL: Well-appearing, well-nourished and in no acute distress. NECK: Supple without JVD or thyromegaly. LUNGS: Breath sounds clear to auscultation bilaterally. Respiration equal and unlabored. No wheezes, rales or rhonchi. HEART: Regular rate and rhythm without murmurs, rubs or gallops. S1 and S2 heard. EXTREMITIES: Normal range of motion, no edema. No clubbing or cyanosis. Peripheral pulses intact. ASSESSMENT Acute ST elevated myocardial infarction Mild ischemic cardiomyopathy Hypertension Dyslipidemia PLAN Stable for discharge on current medical regimen. Discussed the importance of dual anti-platelet therapy. Follow up with Dr. Ross in 1-week. Nurse Practitioner note has been reviewed, I agree with a documented findings and plan of care. Patient was seen and examined. Objective - Vital Signs Vital signs: Vital Signs Temp 98.2 F 09/11/20 08:00 Pulse 78 09/11/20 11:19 Resp 20 09/11/20 11:19 BP 130/86 09/11/20 11:19 Pulse Ox 98 09/11/20 11:19 Intake & Output 09/10/20 09/11/20 09/11/20 18:59 06:59 18:59 Intake Total 220 10 360 Output Total 500 Balance -280 10 360 Weight 117 kg Intake: IV 0 10 Invasive Line 1 10 Sodium Chloride 0.9% 1, 0 000 ml @ 75 mls/hr IV . [id number] NOAH Rx#:[id number] Oral 220 360 Output: Urine 500 Other: Voiding Method Toilet Toilet # Voids 1 2 - Labs CBC & Chem 7: 09/10/20 04:32 09/10/20 04:32
--- NOTE | 2020-09-11 22:17 | DS ---
DISCHARGE SUMMARY FINAL DIAGNOSES: 1. Chest pain, acute ST-segment elevation myocardial infarction status post cardiac catheterization, PTCA of the circumflex marginal coronary artery. 2. Possible coronary artery dissection. 3. Troponin 47.37. 4. Hypothyroidism. 5. History of cholecystectomy. 6. History of hypotension. 7. Depression. 8. History of deep vein thrombosis. 9. History of THC. 10.Obesity with body mass index of 43.2. DISCHARGE DISPOSITION: The patient being discharged in stable condition with guarded prognosis. HISTORY OF PRESENT ILLNESS: This 20-year-old woman with a past medical history of multiple medical problems admitted with chest pain. The patient had ST-segment elevation myocardial infarction. The patient underwent cardiac catheterization and PTCA by Dr. Ramila Ross. Coronary artery dissection was suspected. No stent was used. Two-D echo with Doppler was done by Cardiology which showed ejection fraction about 45 to 50% with mild impairment otherwise inferior wall motion was hypokinetic. The patient improved significantly. On exam, vitals stable. Cardiovascular S1, S2. Abdomen soft. Nervous system: No focal deficits. The initial evaluations for inflammatory markers and also negative and COVID-19 is also negative. The patient will be discharged in stable condition with guarded prognosis. DISCHARGE ADVICE AND MEDICATIONS: 1. Diet is cardiac diet. 2. Activity limited until followup. 3. Follow up with Dr. Ramila Ross in 1 week. 4. Follow up with Dr. Quiroz as recommended. DISCHARGE MEDICATIONS: 1. NuvaRing as before. 2. Synthroid 50 mcg p.o. daily. 3. Aspirin 81 mg p.o. daily. 4. Cozaar 50 mg p.o. daily. 5. Lipitor 40 mg p.o. daily. 6. Lopressor 25 mg p.o. b.i.d. 7. Plavix 75 mg p.o. daily. 8. Tylenol p.r.n. Once again the patient will be discharged in stable condition with guarded prognosis. MMODL / IJN: [id number] /
== END 2020-09-11 11:59 | disposition home or self-care (01) | DRG 250 ==
LOC: EC 20:25 → 2SICU 20:34 → 3SCARD 09-10 17:06
PROVIDERS: ADMIT Hospitalist; ATTEND Hospitalist
PROC: 4A023N7 Measurement of Cardiac Sampling and Pressure, Left Heart, Percutaneous Approach (ICD-10-PCS; principal; 2020-09-08 20:47)
PROC: 02703ZZ Dilation of Coronary Artery, One Artery, Percutaneous Approach (ICD-10-PCS; principal; 2020-09-08 20:47)
PROC: B2111ZZ Fluoroscopy of Multiple Coronary Arteries using Low Osmolar Contrast (ICD-10-PCS; principal; 2020-09-08 20:47)
DX: I21.19 ST elevation (STEMI) myocardial infarction involving other coronary artery of inferior wall (principal); I25.42 Coronary artery dissection; Z68.41 Body mass index [BMI] 40.0-44.9, adult; E03.9 Hypothyroidism, unspecified; E66.9 Obesity, unspecified; Z20.822 Contact with and (suspected) exposure to COVID-19; I25.5 Ischemic cardiomyopathy; E78.5 Hyperlipidemia, unspecified; I10 Essential (primary) hypertension; F17.290 Nicotine dependence, other tobacco product, uncomplicated; Z71.6 Tobacco abuse counseling; Z79.890 Hormone replacement therapy; Z79.3 Long term (current) use of hormonal contraceptives; Z98.891 History of uterine scar from previous surgery; Z90.49 Acquired absence of other specified parts of digestive tract; Z87.19 Personal history of other diseases of the digestive system; Z86.59 Personal history of other mental and behavioral disorders; Z86.718 Personal history of other venous thrombosis and embolism; Z98.890 Other specified postprocedural states; Z82.49 Family history of ischemic heart disease and other diseases of the circulatory system; Z80.41 Family history of malignant neoplasm of ovary; Z83.79 Family history of other diseases of the digestive system; Z83.49 Family history of other endocrine, nutritional and metabolic diseases
CPT/HCPCS: 71045; 80048; 80053; 80061; 80306; 81003; 82728; 83615; 83735; 84484; 84702; 85025; 85379; 85610; 85652; 85730; 86140; 87635; 92920; 92921; 93005; 93306; 93458; 96374; 99285

== ENCOUNTER 2020-12-15 09:31 | Emergency (ER) | payer OTHER ==
[2020-12-15 09:36] VITALS: RESP 18
[2020-12-15] MEDS ORDERED: ONDANSETRON 4 MG/2 ML VIAL IVP STA (09:44)
[2020-12-15] MEDS ORDERED: SODIUM CHLORIDE 0.9% 1,000 ML IV STA (09:44)
--- NOTE | 2020-12-15 09:51 | ED ---
General Adult HPI - General Chief complaint: Dizziness Stated complaint: Dizzy/not eating/vomiting Time Seen by Provider: 12/15/20 09:35 Source: patient, RN notes reviewed, old records reviewed Mode of arrival: ambulatory Limitations: no limitations - History of Present Illness Initial comments: This is a 20-year-old female presents emergency department with past medical history significant for an [place]. Patient comes in today complaining that she's had a 3 week history of vomiting anytime she eats. Patient states she's basically been on any liquid diet this whole time. Patient states that time she's been lightheaded. Patient denies any fever chills per patient denies any chest pain difficulty breathing shortest breath per patient denies any abdominal pain. Patient denies any dysuria hematuria urinary frequency. Patient states her doctor told her it might be reflux but she's not any medicine for reflux at this time. - Related Data Home Medications Medication Instructions Recorded Confirmed Etonogestrel/Ethinyl Estradiol 1 ring VG Q28D 09/08/20 09/08/20 [Nuvaring Vaginal Ring] Levothyroxine Sodium [Synthroid] 50 mcg PO DAILY 09/08/20 09/08/20 Previous Rx's Medication Instructions Recorded Acetaminophen Tab [Tylenol] 500 mg PO Q6HR PRN tab 09/11/20 Aspirin 81 mg PO DAILY chew 09/11/20 Atorvastatin [Lipitor] 40 mg PO DAILY #90 tab 09/11/20 Clopidogrel [Plavix] 75 mg PO DAILY #90 tab 09/11/20 Losartan [Cozaar] 50 mg PO DAILY #90 tab 09/11/20 Metoprolol Tartrate [Lopressor] 25 mg PO BID #180 tab 09/11/20 Allergies Allergy/AdvReac Type Severity Reaction Status Date / Time No Known Allergies Allergy Verified 12/15/20 09:32 Review of Systems ROS Statement: Those systems with pertinent positive or pertinent negative responses have been documented in the HPI. ROS Other: All systems not noted in ROS Statement are negative. Past Medical History Past Medical History: Myocardial Infarction ([place]), Thyroid Disorder History of Any Multi-Drug Resistant Organisms: None Reported Past Surgical History: Section, Cholecystectomy, Heart Catheterization Additional Past Surgical History / Comment(s): cardiac thrombectomy Past Anesthesia/Blood Transfusion Reactions: Previous Problems w/ Anesthesia Additional Past Anesthesia/Blood Transfusion Reaction / Comment(s): hypotension with epidural Past Psychological History: Depression Smoking Status: Vaper Past Alcohol Use History: Occasional Past Drug Use History: Marijuana - Past Family History Mother History Unknown: Yes Family Medical History: Hypertension Additional Family Medical History / Comment(s): ovarian cancer, christiano, breast tumor (benign), "leaky valve" Father Family Medical History: Hyperlipidemia, Hypertension General Exam - General Exam Comments Initial Comments: GENERAL: Patient is well-developed and well-nourished. Patient is nontoxic and well- hydrated and is in no acute distress. ENT: Neck is soft and supple. No significant lymphadenopathy is noted. Oropharynx is clear. Moist mucous membranes. Neck has full range of motion without eliciting any pain. There is no thyroid enlargement and no masses were felt. EYES: The sclera were anicteric and conjunctiva were pink and moist. Extraocular movements were intact and pupils were equal round and reactive to light. Eyelids were unremarkable. PULMONARY: Unlabored respirations. Good breath sounds bilaterally. No audible rales rh onchi or wheezing was noted. CARDIOVASCULAR: There is a regular rate and rhythm without any murmurs gallops or rubs. ABDOMEN: Soft and nontender with normal bowel sounds. SKIN: Skin is clear with no lesions or rashes and otherwise unremarkable. NEUROLOGIC: Patient is alert and oriented x3. Cranial nerves II through XII are grossly intact. Motor and sensory are also intact. Normal speech, volume and content. Symmetrical smile. MUSCULOSKELETAL: Normal extremities with adequate strength and full range of motion. No lower extremity swelling or edema. No calf tenderness. LYMPHATICS: No significant lymphadenopathy is noted PSYCHIATRIC: Normal psychiatric evaluation Limitations: no limitations Course Vital Signs 12/15/20 12/15/20 09:32 11:10 Temperature 98 F 98.1 F Pulse Rate 78 67 Respiratory 18 18 Rate Blood Pressure 119/75 118/63 O2 Sat by Pulse 98 98 Oximetry Medical Decision Making - Medical Decision Making EKG shows sinus bradycardia at 59 bpm VA interval is 156 QRS is 92 QT interval 388 QTC is 384. Patient's EKG shows no ST segment elevation or depression. After patient got Zofran in the emergency department and some fluids I went back and reevaluated her she was resting comfortably in no distress and she stated s he has not vomited since she has been here and she has no nausea at this time. Patient states she supposed to follow-up with a GI specialist in the near future. - Lab Data Result diagrams: 12/15/20 09:56 12/15/20 09:56 Lab Results 12/15/20 12/15/20 12/15/20 Range/Units 09:56 09:56 09:56 WBC 9.9 (3.8-10.6) k/uL RBC 5.09 (3.80-5.40) m/uL Hgb 14.0 (11.4-16.0) gm/dL Hct 45.2 (34.0-46.0) % MCV 88.7 (80.0-100.0) fL MCH 27.5 (25.0-35.0) pg MCHC 30.9 L (31.0-37.0) g/dL RDW 13.0 (11.5-15.5) % Plt Count 330 (150-450) k/uL MPV 7.7 Neutrophils % 64 % Lymphocytes % 27 % Monocytes % 5 % Eosinophils % 2 % Basophils % 1 % Neutrophils # 6.3 (1.3-7.7) k/uL Lymphocytes # 2.6 (1.0-4.8) k/uL Monocytes # 0.5 (0-1.0) k/uL Eosinophils # 0.2 (0-0.7) k/uL Basophils # 0.1 (0-0.2) k/uL Sodium 142 (137-145) mmol/L Potassium 3.8 (3.5-5.1) mmol/L Chloride 106 (98-107) mmol/L Carbon Dioxide 26 (22-30) mmol/L Anion Gap 10 mmol/L BUN 13 (7-17) mg/dL Creatinine 0.74 (0.52-1.04) mg/dL Est GFR (CKD-EPI)AfAm >90 (>60 ml/min/1.73 sqM) Est GFR (CKD-EPI)NonAf >90 (>60 ml/min/1.73 sqM) Glucose 79 (74-99) mg/dL Calcium 9.7 (8.4-10.2) mg/dL Total Bilirubin 0.3 (0.2-1.3) mg/dL AST 25 (14-36) U/L ALT 19 (4-34) U/L Alkaline Phosphatase 114 (38-126) U/L Troponin I (0.000-0.034) ng/mL Total Protein 7.0 (6.3-8.2) g/dL Albumin 3.9 (3.5-5.0) g/dL Amylase 35 (30-110) U/L Lipase 68 (23-300) U/L Urine Color Yellow Urine Appearance Clear (Clear) Urine pH 5.5 (5.0-8.0) Ur Specific [place] 1.023 (1.001-1.035) Urine Protein Negative (Negative) Urine Glucose (UA) Negative (Negative) Urine Ketones Negative (Negative) Urine Blood Moderate H (Negative) Urine Nitrite Negative (Negative) Urine Bilirubin Negative (Negative) Urine Urobilinogen <2.0 (<2.0) mg/dL Ur Leukocyte Esterase Negative (Negative) Urine RBC 1 (0-5) /hpf Urine WBC 2 (0-5) /hpf Ur Squamous Epith Cells 4 (0-4) /hpf Urine Mucus Few H (None) /hpf 12/15/20 Range/Units 09:56 WBC (3.8-10.6) k/uL RBC (3.80-5.40) m/uL Hgb (11.4-16.0) gm/dL Hct (34.0-46.0) % MCV (80.0-100.0) fL MCH (25.0-35.0) pg MCHC (31.0-37.0) g/dL RDW (11.5-15.5) % Plt Count (150-450) k/uL MPV Neutrophils % % Lymphocytes % % Monocytes % % Eosinophils % % Basophils % % Neutrophils # (1.3-7.7) k/uL Lymphocytes # (1.0-4.8) k/uL Monocytes # (0-1.0) k/uL Eosinophils # (0-0.7) k/uL Basophils # (0-0.2) k/uL Sodium (137-145) mmol/L Potassium (3.5-5.1) mmol/L Chloride (98-107) mmol/L Carbon Dioxide (22-30) mmol/L Anion Gap mmol/L BUN (7-17) mg/dL Creatinine (0.52-1.04) mg/dL Est GFR (CKD-EPI)AfAm (>60 ml/min/1.73 sqM) Est GFR (CKD-EPI)NonAf (>60 ml/min/1.73 sqM) Glucose (74-99) mg/dL Calcium (8.4-10.2) mg/dL Total Bilirubin (0.2-1.3) mg/dL AST (14-36) U/L ALT (4-34) U/L Alkaline Phosphatase (38-126) U/L Troponin I <0.012 (0.000-0.034) ng/mL Total Protein (6.3-8.2) g/dL Albumin (3.5-5.0) g/dL Amylase (30-110) U/L Lipase (23-300) U/L Urine Color Urine Appearance (Clear) Urine pH (5.0-8.0) Ur Specific [place] (1.001-1.035) Urine Protein (Negative) Urine Glucose (UA) (Negative) Urine Ketones (Negative) Urine Blood (Negative) Urine Nitrite (Negative) Urine Bilirubin (Negative) Urine Urobilinogen (<2.0) mg/dL Ur Leukocyte Esterase (Negative) Urine RBC (0-5) /hpf Urine WBC (0-5) /hpf Ur Squamous Epith Cells (0-4) /hpf Urine Mucus (None) /hpf Disposition Clinical Impression: Acute vomiting Disposition: HOME SELF-CARE Condition: Good Instructions (If sedation given, give patient instructions): Acute Nausea and Vomiting (ED) Is patient prescribed a controlled substance at d/c from ED?: No Referrals: Lencho Quiroz III, MD [Primary Care Provider] - 1-2 days Time of Disposition: 11:41
[2020-12-15 10:16] LABS: Basophils # (A) 0.1 k/uL (0-0.2); Basophils % (A) 1 %; Eosinophils # (A) 0.2 k/uL (0-0.7); Eosinophils % (A) 2 %; HCT 45.2 % (34.0-46.0); Lymphocytes # (A) 2.6 k/uL (1.0-4.8); Lymphocytes % (A) 27 %; MCH 27.5 pg (25.0-35.0); MCHC 30.9 g/dL (31.0-37.0); MCV 88.7 fL (80.0-100.0); Mean Platelet Volume 7.7; Monocytes # (A) 0.5 k/uL (0-1.0); Monocytes % (A) 5 %; Neutrophils # (A) 6.3 k/uL (1.3-7.7); Neutrophils % (A) 64 %; Platelet Count 330 k/uL (150-450); RBC 5.09 m/uL (3.80-5.40); WBC 9.9 k/uL (3.8-10.6)
[2020-12-15 10:28] LABS: ALT 19 U/L (4-34); AST 25 U/L (14-36); African American GFR (CKD) >90 (>60 ml/min/1.73 sqM); Albumin 3.9 g/dL (3.5-5.0); Alkaline Phosphatase 114 U/L (38-126); Amylase 35 U/L (30-110); Anion Gap 10 mmol/L; Blood Urea Nitrogen 13 mg/dL (7-17); Calcium 9.7 mg/dL (8.4-10.2); Carbon Dioxide 26 mmol/L (22-30); Chloride 106 mmol/L (98-107); Glucose 79 mg/dL (74-99); Lipase 68 U/L (23-300); Non-African American GFR(CKD) >90 (>60 ml/min/1.73 sqM); Potassium 3.8 mmol/L (3.5-5.1); Sodium 142 mmol/L (137-145); Total Bilirubin 0.3 mg/dL (0.2-1.3)
[2020-12-15 10:29] LABS: Appearance,Urine Clear (Clear); Bilirubin,Urine Negative (Negative); Blood,Urine Moderate (Negative); Color,Urine Yellow; Glucose,Urine (UA) Negative (Negative); Ketones,Urine Negative (Negative); Leukocyte Esterase,Urine Negative (Negative); Mucus,Urine Few /hpf; Nitrite,Urine Negative (Negative); PH, Urine 5.5 (5.0-8.0); Protein,Urine Negative (Negative); RBC,Urine 1 /hpf (0-5); Specific Gravity,Urine 1.023 (1.001-1.035); Squamous Epithelial Cell,Urine 4 /hpf (0-4); Urobilinogen,Urine <2.0 mg/dL (<2.0); WBC,Urine 2 /hpf (0-5)
[2020-12-15 11:27] VITALS: BP 118/63; PULSE 67; TEMP 98.1
[2020-12-15] MEDS ORDERED: ONDANSETRON 4 MG ODT STARTER PACK 2 TAB BTL PO STA (11:42)
== END 2020-12-15 11:55 | disposition home or self-care (01) ==
LOC: EC 09:31
DX: R42 Dizziness and giddiness (principal); R11.10 Vomiting, unspecified; E07.9 Disorder of thyroid, unspecified; I25.2 Old myocardial infarction; F17.290 Nicotine dependence, other tobacco product, uncomplicated; Z79.890 Hormone replacement therapy
CPT/HCPCS: 36415; 93005; 80053; 82150; 83690; 84484; 85025; 81001; 99284; 96374; 96361; J2405; S0119

== ENCOUNTER 2020-12-26 17:01 | Observation (INO) | payer OTHER ==
[2020-12-26] MEDS ORDERED: ASPIRIN 81 MG PO STA (18:03)
--- NOTE | 2020-12-26 18:10 | ED ---
General Adult HPI - General Chief complaint: Chest Pain Stated complaint: Chest pain Time Seen by Provider: 12/26/20 17:38 Source: patient, RN notes reviewed Mode of arrival: ambulatory Limitations: no limitations - History of Present Illness Initial comments: 20-year-old female with a past medical history of CO presents to the emergency room for chest pain. Patient states this started about 10 hours prior to arrival. This morning around 8 AM she started to get a sharp pressure in the chest that radiates to the back. States she also has some diaphoresis. Denies nausea. She feels clammy. Patient had a heart attack in the past and this concerned her so she decided to come to the emergency room. Patient does state that taking a deep breath makes the pain worse.Patient has no other complaints at this time including shortness of breath, abdominal pain, nausea or vomiting, headache, or visual changes. - Related Data Home Medications Medication Instructions Recorded Confirmed Biotin 5 mg PO DAILY 12/26/20 12/26/20 Collagen 1 tab PO DAILY 12/26/20 12/26/20 Ferrous Sulfate [Feosol] 325 mg PO DAILY 12/26/20 12/26/20 Levothyroxine Sodium [Synthroid] 50 mcg PO DAILY 12/26/20 12/26/20 Metoprolol Tartrate [Lopressor] 50 mg PO DAILY 12/26/20 12/26/20 Niacin 500 mg PO DAILY 12/26/20 12/26/20 Omeprazole 20 mg PO DAILY PRN 12/26/20 12/26/20 Ondansetron [Zofran] 4 mg PO DAILY PRN 12/26/20 12/26/20 Pyridoxine [Vitamin B-6] 50 mg PO DAILY 12/26/20 12/26/20 Ubidecarenone [Co Q-10] 100 mg PO DAILY 12/26/20 12/26/20 Vitamin B Complex 1 cap PO DAILY 12/26/20 12/26/20 Previous Rx's Medication Instructions Recorded Atorvastatin [Lipitor] 40 mg PO DAILY #90 tab 09/11/20 Clopidogrel [Plavix] 75 mg PO DAILY #90 tab 09/11/20 Losartan [Cozaar] 50 mg PO DAILY #90 tab 09/11/20 Allergies Allergy/AdvReac Type Severity Reaction Status Date / Time No Known Allergies Allergy Verified 12/26/20 19:00 Review of Systems ROS Statement: Those systems with pertinent positive or pertinent negative responses have been documented in the HPI. ROS Other: All systems not noted in ROS Statement are negative. Past Medical History Past Medical History: Myocardial Infarction ([place]), Thyroid Disorder History of Any Multi-Drug Resistant Organisms: None Reported Past Surgical History: Section, Cholecystectomy, Heart Catheterization Additional Past Surgical History / Comment(s): cardiac thrombectomy Past Anesthesia/Blood Transfusion Reactions: Previous Problems w/ Anesthesia Additional Past Anesthesia/Blood Transfusion Reaction / Comment(s): hypotension with epidural Past Psychological History: Depression Smoking Status: Vaper Past Alcohol Use History: Occasional Past Drug Use History: Marijuana - Past Family History Mother History Unknown: Yes Family Medical History: Hypertension Additional Family Medical History / Comment(s): ovarian cancer, christiano, breast tumor (benign), "leaky valve" Father Family Medical History: Hyperlipidemia, Hypertension General Exam Limitations: no limitations General appearance: alert, in no apparent distress Head exam: Present: atraumatic Eye exam: Present: normal appearance, PERRL, EOMI. Absent: scleral icterus, conjunctival injection ENT exam: Present: normal exam, mucous membranes moist Neck exam: Present: normal inspection, full ROM. Absent: tenderness Respiratory exam: Present: normal lung sounds bilaterally. Absent: respiratory distress, wheezes Cardiovascular Exam: Present: regular rate, normal rhythm, normal heart sounds Course Vital Signs 12/26/20 12/26/20 17:12 18:12 Temperature 98.1 F Pulse Rate 77 70 Respiratory 20 18 Rate Blood Pressure 110/67 128/69 O2 Sat by Pulse 99 98 Oximetry EKG Findings - EKG Comments: EKG Findings:: Normal sinus rhythm, ventricular rate 66, ID interval 150, QTC 406 Medical Decision Making - Medical Decision Making Vitals are stable. EKG nonischemic CBC CMP unremarkable. Troponin is negative. D-dimer is within normal limits HCG is undetected. Chest x-ray shows a normal chest. At this time given patient's history she will be admitted for cardiol ogy consultation and trending troponin. - Lab Data Result diagrams: 12/26/20 18:06 12/26/20 18:06 Lab Results 12/26/20 12/26/20 12/26/20 Range/Units 18:06 18:06 18:06 WBC 10.6 (3.8-10.6) k/uL RBC 5.21 (3.80-5.40) m/uL Hgb 14.6 (11.4-16.0) gm/dL Hct 45.9 (34.0-46.0) % MCV 88.0 (80.0-100.0) fL MCH 28.1 (25.0-35.0) pg MCHC 31.9 (31.0-37.0) g/dL RDW 13.0 (11.5-15.5) % Plt Count 299 (150-450) k/uL MPV 7.9 Neutrophils % 68 % Lymphocytes % 23 % Monocytes % 5 % Eosinophils % 2 % Basophils % 0 % Neutrophils # 7.3 (1.3-7.7) k/uL Lymphocytes # 2.4 (1.0-4.8) k/uL Monocytes # 0.5 (0-1.0) k/uL Eosinophils # 0.2 (0-0.7) k/uL Basophils # 0.1 (0-0.2) k/uL PT 10.8 (9.0-12.0) sec INR 1.0 (<1.2) APTT 24.4 (22.0-30.0) sec D-Dimer 0.24 (<0.60) mg/L FEU Sodium 139 (137-145) mmol/L Potassium 3.8 (3.5-5.1) mmol/L Chloride 103 (98-107) mmol/L Carbon Dioxide 24 (22-30) mmol/L Anion Gap 12 mmol/L BUN 15 (7-17) mg/dL Creatinine 0.73 (0.52-1.04) mg/dL Est GFR (CKD-EPI)AfAm >90 (>60 ml/min/1.73 sqM) Est GFR (CKD-EPI)NonAf >90 (>60 ml/min/1.73 sqM) Glucose 96 (74-99) mg/dL Calcium 9.7 (8.4-10.2) mg/dL Magnesium 1.9 (1.6-2.3) mg/dL Total Bilirubin 0.6 (0.2-1.3) mg/dL AST 33 (14-36) U/L ALT 23 (4-34) U/L Alkaline Phosphatase 116 (38-126) U/L Troponin I (0.000-0.034) ng/mL NT-Pro-B Natriuret Pep pg/mL Total Protein 7.3 (6.3-8.2) g/dL Albumin 4.1 (3.5-5.0) g/dL Lipase 69 (23-300) U/L HCG, Qual Not Detected 12/26/20 12/26/20 Range/Units 18:06 18:06 WBC (3.8-10.6) k/uL RBC (3.80-5.40) m/uL Hgb (11.4-16.0) gm/dL Hct (34.0-46.0) % MCV (80.0-100.0) fL MCH (25.0-35.0) pg MCHC (31.0-37.0) g/dL RDW (11.5-15.5) % Plt Count (150-450) k/uL MPV Neutrophils % % Lymphocytes % % Monocytes % % Eosinophils % % Basophils % % Neutrophils # (1.3-7.7) k/uL Lymphocytes # (1.0-4.8) k/uL Monocytes # (0-1.0) k/uL Eosinophils # (0-0.7) k/uL Basophils # (0-0.2) k/uL PT (9.0-12.0) sec INR (<1.2) APTT (22.0-30.0) sec D-Dimer (<0.60) mg/L FEU Sodium (137-145) mmol/L Potassium (3.5-5.1) mmol/L Chloride (98-107) mmol/L Carbon Dioxide (22-30) mmol/L Anion Gap mmol/L BUN (7-17) mg/dL Creatinine (0.52-1.04) mg/dL Est GFR (CKD-EPI)AfAm (>60 ml/min/1.73 sqM) Est GFR (CKD-EPI)NonAf (>60 ml/min/1.73 sqM) Glucose (74-99) mg/dL Calcium (8.4-10.2) mg/dL Magnesium (1.6-2.3) mg/dL Total Bilirubin (0.2-1.3) mg/dL AST (14-36) U/L ALT (4-34) U/L Alkaline Phosphatase (38-126) U/L Troponin I <0.012 (0.000-0.034) ng/mL NT-Pro-B Natriuret Pep 193 pg/mL Total Protein (6.3-8.2) g/dL Albumin (3.5-5.0) g/dL Lipase (23-300) U/L HCG, Qual Disposition Clinical Impression: Chest pain Disposition: ADMITTED IP TO THIS HOSP Is patient prescribed a controlled substance at d/c from ED?: No Referrals: Lencho Quiroz III, MD [Primary Care Provider] - 1-2 days Time of Disposition: 20:16
[2020-12-26 18:17] LABS: HCT 45.9 % (34.0-46.0); HGB 14.6 gm/dL (11.4-16.0); MCH 28.1 pg (25.0-35.0); MCHC 31.9 g/dL (31.0-37.0); RBC 5.21 m/uL (3.80-5.40); WBC 10.6 k/uL (3.8-10.6)
[2020-12-26 18:18] LABS: Basophils # (A) 0.1 k/uL (0-0.2); Basophils % (A) 0 %; Eosinophils # (A) 0.2 k/uL (0-0.7); Eosinophils % (A) 2 %; Lymphocytes # (A) 2.4 k/uL (1.0-4.8); Lymphocytes % (A) 23 %; Mean Platelet Volume 7.9; Monocytes # (A) 0.5 k/uL (0-1.0); Monocytes % (A) 5 %; Neutrophils # (A) 7.3 k/uL (1.3-7.7); Neutrophils % (A) 68 %; Platelet Count 299 k/uL (150-450)
[2020-12-26 18:25] LABS: HCG,Qualitative Serum Not Detected
[2020-12-26 18:31] LABS: ALT 23 U/L (4-34); AST 33 U/L (14-36); African American GFR (CKD) >90 (>60 ml/min/1.73 sqM); Albumin 4.1 g/dL (3.5-5.0); Alkaline Phosphatase 116 U/L (38-126); Anion Gap 12 mmol/L; Blood Urea Nitrogen 15 mg/dL (7-17); Calcium 9.7 mg/dL (8.4-10.2); Carbon Dioxide 24 mmol/L (22-30); Chloride 103 mmol/L (98-107); Glucose 96 mg/dL (74-99); Lipase 69 U/L (23-300); Magnesium 1.9 mg/dL (1.6-2.3); Non-African American GFR(CKD) >90 (>60 ml/min/1.73 sqM); Potassium 3.8 mmol/L (3.5-5.1); Sodium 139 mmol/L (137-145); Total Bilirubin 0.6 mg/dL (0.2-1.3); Total Protein 7.3 g/dL (6.3-8.2)
[2020-12-26 18:37] LABS: Partial Thromboplastin Time 24.4 sec (22.0-30.0); Prothrombin Time 10.8 sec (9.0-12.0)
--- NOTE | 2020-12-26 18:39 | XR ---
EXAMINATION TYPE: XR chest 2V DATE OF EXAM: 12/26/2020 COMPARISON: 09/08/2020 HISTORY: Chest pain TECHNIQUE: 2 views FINDINGS: Heart and mediastinum are normal. Lungs are clear. Diaphragm is normal. Bony thorax appears normal. IMPRESSION: Normal chest. No change.
[2020-12-26] MEDS ORDERED: NITROGLYCERIN SL TABS 0.4 MG TAB SUBLINGUAL PRN (20:12)
[2020-12-26] MEDS ORDERED: ONDANSETRON 4 MG TAB PO PRN (23:00)
[2020-12-27] MEDS ORDERED: PANTOPRAZOLE 40 MG TABLET PO PRN
[2020-12-27 06:13] VITALS: RESP 18
[2020-12-27] MEDS ORDERED: LEVOTHYROXINE 50 MCG TAB PO SCH (06:30)
[2020-12-27] MEDS ORDERED: NON FORMULARY DRUG (Biotin [Biotin] 5 MG Capsule) PO SCH (09:00)
[2020-12-27] MEDS ORDERED: NON FORMULARY DRUG (Ubidecarenone [Co Q-10] 100 MG Capsule) PO SCH (09:00)
[2020-12-27] MEDS ORDERED: ASPIRIN 325 MG TAB PO SCH (09:00)
[2020-12-27] MEDS ORDERED: FERROUS SULFATE 325 MG TAB PO SCH (09:00)
[2020-12-27] MEDS ORDERED: LOSARTAN 50 MG TAB PO SCH (09:00)
[2020-12-27] MEDS ORDERED: ATORVASTATIN 40 MG TAB PO SCH (09:00)
[2020-12-27] MEDS ORDERED: METOPROLOL TARTRATE 50 MG TAB PO SCH (09:00)
[2020-12-27] MEDS ORDERED: FOLIC ACID-VIT B COMPLEX-VIT C 1 CAP PO SCH (09:00)
[2020-12-27] MEDS ORDERED: NIACIN TR 500 MG CAPLET PO SCH (09:00)
[2020-12-27] MEDS ORDERED: COLLAGEN PO SCH (09:00)
[2020-12-27] MEDS ORDERED: PYRIDOXINE 50 MG TAB PO SCH (09:00)
[2020-12-27] MEDS ORDERED: CLOPIDOGREL 75 MG TAB PO SCH (09:00)
[2020-12-27 09:41] VITALS: BP 147/92; PULSE 79; TEMP 98.4
--- NOTE | 2020-12-27 09:42 | P.CRDCN ---
History of Present Illness History of present illness: HISTORY OF PRESENTING ILLNESS This is a pleasant 20-year-old female past medical history significant for hypertension, dyslipidemia, chronic tobacco use, STEMI in August 2020 s/p PTCA no stenting, ischemic cardiomyopathy with improvement in LV function. She follows in the office with Dr. Ross. We have been asked to see in consultation for chest pain. Patient states for the past 2 weeks she has been having nausea and vomiting, she did present to the ER that time and was given Zofran and IV fluids, she was referred to GI specialist at that time. She states she has been having chest tightness off and on, radiating to back. She feels palpitations frequently. She mostly gets her symptoms when exerting herself or lifting heavy boxes at work. Her chest pain is aggravated by taking a deep breath and there is some tenderness with palpation. She denies injury, however does lift heavy pack ages at work. She states yesterday her chest tightness woke her up out of a sleep. She thought she may have slept in a different position. She proceeded to go about her daily activities and continued to have midsternal chest tightness, some radiating to her neck and back. She states she had associated shortness of breath and palpitations. She was nervous that this was similar to her DC in August 2020 and presented to the emergency department for further evaluation. She also endorses some stresses at home, she has an 8 month old. Just started getting back to work, she works nights, states she sleeps about 3 hours per night. She continues to use tobacco vaping. DIAGNOSTICS EKG reveals sinus rhythm, heart rate 66, T wave inversion in lead III. EKG this morning with similar findings, previous EKG in 12/15/20 with similar findings. Last Cardiac Catheterization 08/2020, Most recent echocardiogram 10/23/2020 revealed EF of 55%, no significant wall motion abnormalities. No pulmonary hypertension. Most recent stress echo in the office 10/20/20- Negative for reversible ischemia. Telemetry tracings indicate sinus mechanism, no arrhythmia noted. Chest xray no acute cardiopulmonary process Laboratory reviewed, troponin negative 3, d-dimer negative, CBC unremarkable, sodium 139, potassium 3.8, BUN 15, serum creatinine 0.7, proBNP 193, COVID-19 negative REVIEW OF SYSTEMS At the time of my exam: CONSTITUTIONAL: Denies fever or chills. CARDIOVASCULAR: +chest pain, shortness of breath Denies orthopnea, PND or palpitations. RESPIRATORY: Denies cough. GASTROINTESTINAL: +nausea and vomiting intermittent Denies abdominal pain, diarrhea, constipation MUSCULOSKELETAL: Denies myalgias. NEUROLOGIC: Denies numbness, tingling, headacbe or weakness. ENDOCRINE: Denies fatigue, weight change, polydipsia or polyurina. GENITOURINARY: Denies burning, hematuria or urgency with micturation. HEMATOLOGIC: Denies history of anemia or bleeding. PHYSICAL EXAMINATION Blood pressure 121/80, heart rate 71, afebrile, T-max saturations on room air CONSTITUTIONAL: No apparent distress. HEENT: Head is normocephalic. Pupils are equal, round. Sclerae anicteric. Mucous membranes of the mouth are moist. No JVD. No carotid bruit. CHEST EXAMINATION: Lungs are clear to auscultation. There is chest wall tenderness is noted on palpation or with deep breathing. HEART EXAMINATION: Regular rate and rhythm. S1, S2 heard. No murmurs, gallops or rub. ABDOMEN: Soft, nontender. Positive bowel sounds. EXTREMITIES: 2+ peripheral pulses, no lower extremity edema and no calf tenderness. SKIN: warm, dry NEUROLOGIC EXAMINATION: Patient is awake, alert and oriented x3. ASSESSMENT Chest pain, atypical, acute coronary syndrome has been ruled out. Reproducible with deep breath and palpation to chest. Hypertension Dyslipidemia Chronic tobacco use History of STEMI in August 2020 s/p PTCA no stenting, History of Ischemic cardiomyopathy with improvement in LV function. PLAN -An acute coronary event has been ruled out with no EKG evidence of ischemia and negative cardiac enzymes. -From a cardiology perspective her pain is atypical, it is also reproducible with deep breath and palpation to her chest. She had a recent negative stress echo test and echocardiogram in the office in october 2020. -She is hemodynamically stable for discharge from cardiology perspective. -We will change metoprolol succinate to 50 mg daily and discontinue her metoprolol tartrate. -Smoking cessation discussed and highly recommended. -Follow up with Dr. Ross, at her upcoming scheduled appointment -Thank you kindly for this consultation. Nurse Practitioner note has been reviewed, I agree with a documented findings a nd plan of care. Patient was seen and examined. Past Medical History Past Medical History: Myocardial Infarction ([place]), Thyroid Disorder Additional Past Medical History / Comment(s): Broken right ankle 2019 Last Myocardial Infarction Date:: 09/08/20 History of Any Multi-Drug Resistant Organisms: None Reported Past Surgical History: Section, Cholecystectomy, Heart Catheterization Additional Past Surgical History / Comment(s): cardiac thrombectomy Past Anesthesia/Blood Transfusion Reactions: Previous Problems w/ Anesthesia Additional Past Anesthesia/Blood Transfusion Reaction / Comment(s): hypotension with epidural Smoking Status: Vaper - Past Family History Mother History Unknown: Yes Family Medical History: Hypertension Additional Family Medical History / Comment(s): ovarian cancer, christiano, breast tumor (benign), "leaky valve" Father Family Medical History: Hyperlipidemia, Hypertension Medications and Allergies Home Medications Medication Instructions Recorded Confirmed Type Atorvastatin [Lipitor] 40 mg PO DAILY #90 tab 09/11/20 12/26/20 Rx Clopidogrel [Plavix] 75 mg PO DAILY #90 tab 09/11/20 12/26/20 Rx Losartan [Cozaar] 50 mg PO DAILY #90 tab 09/11/20 12/26/20 Rx Biotin 5 mg PO DAILY 12/26/20 12/26/20 History Collagen 1 tab PO DAILY 12/26/20 12/26/20 History Ferrous Sulfate [Feosol] 325 mg PO DAILY 12/26/20 12/26/20 History Levothyroxine Sodium [Synthroid] 50 mcg PO DAILY 12/26/20 12/26/20 History Niacin 500 mg PO DAILY 12/26/20 12/26/20 History Omeprazole 20 mg PO DAILY PRN 12/26/20 12/26/20 History Ondansetron [Zofran] 4 mg PO DAILY PRN 12/26/20 12/26/20 History Pyridoxine [Vitamin B-6] 50 mg PO DAILY 12/26/20 12/26/20 History Ubidecarenone [Co Q-10] 100 mg PO DAILY 12/26/20 12/26/20 History Vitamin B Complex 1 cap PO DAILY 12/26/20 12/26/20 History Aspirin 81 mg PO DAILY tab 12/27/20 Rx Metoprolol Succinate (ER) [Toprol 50 mg PO DAILY 30 Days #30 tablet 12/27/20 Rx XL] Allergies Allergy/AdvReac Type Severity Reaction Status Date / Time No Known Allergies Allergy Verified 12/26/20 19:00 Physical Exam Vitals: Vital Signs Temp Pulse Pulse Resp BP BP Pulse Ox 12/27/20 05:10 97.7 F 71 18 121/80 97 12/27/20 02:00 98.4 F 66 16 112/58 94 L 12/26/20 21:48 97.6 F 63 18 121/79 98 12/26/20 20:48 82 18 125/66 98 12/26/20 18:12 70 18 128/69 98 12/26/20 17:12 98.1 F 77 20 110/67 99 Intake and Output 12/26/20 12/26/20 12/27/20 14:59 22:59 06:59 Intake Total 0 Output Total 0 Balance 0 Intake: Oral 0 Blood Product 0 Output: Urine 0 Other: # Voids 2 Weight 90.718 kg Results 12/26/20 18:06 12/26/20 18:06 Cardiac Enzymes 12/26/20 12/26/20 12/26/20 Range/Units 18:06 18:06 21:37 AST 33 (14-36) U/L Troponin I <0.012 <0.012 (0.000-0.034) ng/mL 12/27/20 Range/Units 01:14 AST (14-36) U/L Troponin I <0.012 (0.000-0.034) ng/mL Coagulation 12/26/20 Range/Units 18:06 PT 10.8 (9.0-12.0) sec APTT 24.4 (22.0-30.0) sec CBC 12/26/20 Range/Units 18:06 WBC 10.6 (3.8-10.6) k/uL RBC 5.21 (3.80-5.40) m/uL Hgb 14.6 (11.4-16.0) gm/dL Hct 45.9 (34.0-46.0) % Plt Count 299 (150-450) k/uL Comprehensive Metabolic Panel 12/26/20 Range/Units 18:06 Sodium 139 (137-145) mmol/L Potassium 3.8 (3.5-5.1) mmol/L Chloride 103 (98-107) mmol/L Carbon Dioxide 24 (22-30) mmol/L BUN 15 (7-17) mg/dL Creatinine 0.73 (0.52-1.04) mg/dL Glucose 96 (74-99) mg/dL Calcium 9.7 (8.4-10.2) mg/dL AST 33 (14-36) U/L ALT 23 (4-34) U/L Alkaline Phosphatase 116 (38-126) U/L Total Protein 7.3 (6.3-8.2) g/dL Albumin 4.1 (3.5-5.0) g/dL Current Medications Generic Name Dose Route Start Last Admin Trade Name Freq PRN Reason Stop Dose Admin Aspirin 325 mg 12/27/20 09:00 Aspirin 325 Mg Tab PO DAILY [facility] Atorvastatin Calcium 40 mg 12/27/20 09:00 Atorvastatin 40 Mg Tab PO DAILY [facility] Clopidogrel Bisulfate 75 mg 12/27/20 09:00 Clopidogrel 75 Mg Tab PO DAILY [facility] Ferrous Sulfate 325 mg 12/27/20 09:00 Ferrous Sulfate 325 Mg Tab PO DAILY [facility] Levothyroxine Sodium 50 mcg 12/27/20 06:30 12/27/20 06:21 Levothyroxine 50 Mcg Tab PO 50 mcg DAILY@0630 [facility] Administration Losartan Potassium 50 mg 12/27/20 09:00 Losartan 50 Mg Tab PO DAILY [facility] Metoprolol Tartrate 50 mg 12/27/20 09:00 Metoprolol Tartrate 50 Mg Tab PO DAILY [facility] Multivit/Ca Carb/B Cmplx/FA/Prenat 1 each 12/27/20 09:00 Folic Acid-Vit B Complex-Vit C 1 Cap PO DAILY [facility] Niacin 500 mg 12/27/20 09:00 Niacin Tr 500 Mg Caplet PO DAILY [facility] Nitroglycerin 0.4 mg 12/26/20 20:12 Nitroglycerin Sl Tabs 0.4 Mg Tab SUBLINGUAL Q5M PRN Chest Pain Ondansetron HCl 4 mg 12/26/20 23:00 Ondansetron 4 Mg Tab PO DAILY PRN Nausea Pantoprazole Sodium 40 mg 12/27/20 00:00 Pantoprazole 40 Mg Tablet PO DAILY PRN GI Upset Pyridoxine HCl 50 mg 12/27/20 09:00 Pyridoxine 50 Mg Tab PO DAILY [facility] Intake and Output 12/26/20 12/26/20 12/27/20 14:59 22:59 06:59 Intake Total 0 Output Total 0 Balance 0 Intake: Oral 0 Blood Product 0 Output: Urine 0 Other: # Voids 2 Weight 90.718 kg Patient Weight 12/27/20 06:59 Weight 90.718 kg 12/26/20 18:06 12/26/20 18:06
[2020-12-27 17:44] LABS: HDL Cholesterol 49.6 mg/dL (40.00-60.00); LDL Cholesterol,Calculated 35.5 mg/dL (0.0-131.0); Triglycerides 70.2 mg/dL (0.00-149.00); VLDL Calculation 14.04 mg/dL (5.00-40.00)
--- NOTE | 2020-12-27 18:51 | HP ---
HISTORY AND PHYSICAL HISTORY AND PHYSICAL/DISCHARGE SUMMARY: CHIEF COMPLAINT: Chest pain. HISTORY OF PRESENT ILLNESS: This 20-year-old woman with a past medical history of multiple medical problems including myocardial infarction, hypothyroidism, history of right ankle fracture, Caesarean section, cholecystectomy, depression, history of vaping, being followed by Dr. Quiroz in the outpatient setting was previously admitted with chest pain in August 2020. The patient had PTCA but no stenting. The patient also had ischemic cardiomyopathy, LV function is improving, but today the patient is complaining of chest pain which was felt in the anterior part of the chest and radiating across the chest and also radiating up the right side of the neck. The patient came to [facility] and was admitted to the hospital for further evaluation and treatment. The pain is also increasing with deep inspirations according to her. The labs are all normal. Troponins are normal. EKG which I reviewed personally showed no acute changes. There is no history of fever, rigors or chills. Cardiology saw the patient and recommended outpatient followup at this time. The patient underwent PTCA of the circumflex marginal coronary artery during the last admission, the troponins elevated to 47.37. The patient was also suspected of coronary dissection during that time. PAST MEDICAL HISTORY: History of myocardial infarction and PTCA no stenting, history of broken right ankle, Caesarean second, cholecystectomy, history of depression, vaping. MEDICATIONS: Home medications are: Vitamin B complex,, vitamin B6, Zofran, niacin, Cozaar, Synthroid, biotin, Lipitor, Nitrostat. Doses reviewed. ALLERGIES: None. FAMILY HISTORY: History of hypertension, ovarian cancer. SOCIAL HISTORY: No history of smoking. Occasional alcohol intake. REVIEW OF SYSTEMS: ENT: No diminished vision. No diminished hearing. CARDIOVASCULAR system: As mentioned earlier. RESPIRATORY: As mentioned earlier. GI: As mentioned earlier. : No dysuria. NERVOUS SYSTEM: No numbness, weakness. ALLERGY/IMMUNOLOGY: No asthma or hayfever. MUSCULOSKELETAL: As mentioned earlier. HEMATOLOGY/ONCOLOGY: No history of anemia. ENDOCRINE: As mentioned earlier. CONSTITUTIONAL: As mentioned earlier. DERMATOLOGY negative. RHEUMATOLOGY negative. PSYCHIATRIC: As mentioned earlier. PHYSICAL EXAMINATION: Alert and oriented times three. Pulse is 79. Blood pressure 147/92, respiration 18, temperature 98.4, pulse ox 98% on room air. HEENT: Conjunctivae normal. NECK: No JVD. CARDIOVASCULAR: S1, S2 muffled. RESPIRATORY SYSTEM: Breath sounds diminished at the bases. A few scattered rhonchi. ABDOMEN: Soft, nontender. LEGS: No edema. No swelling. NERVOUS SYSTEM: No focal deficits. LABS: CBC, BMP noted. ASSESSMENT: 1. Chest pain possible unstable angina. 2. History of recent ST-elevation myocardial infarction and as well as PTCA. 3. History of possible coronary artery dissection. 4. History of hypothyroidism. 5. History of right ankle fracture. 6. History of cholecystectomy. 7. History of depression. 8. History of vaping. 9. THC. RECOMMENDATIONS AND DISCUSSION: This 20-year-old woman who presented with multiple complex medical issues, we will monitor the patient closely, continue the current medications, management and symptomatic treatment. Otherwise at this time, I recommend continue with antiplatelet agents. Dr. Ross has seen the patient and recommended the following medications: 1. Diet is cardiac diet. 2. Activity limited until followup. 3. Follow up with Dr. Quiroz in 2-3 days. 4. Follow up with Cardiology as recommended. 5. Outpatient evaluation. 6. Biotin 5 mg p.o. daily. 7. Coenzyme Q10 100 mg p.o. daily. 8. 1 tab p.o. daily. 9. Iron sulfate 320 mg daily. 10.Niacin 500 mg p.o. daily. 11.Omeprazole 20 mg daily p.r.n. 12.Levothyroxine 50 mcg p.o. daily. 13.Vitamin B complex 1 p.o. daily. 14.Pyridoxine 50 mcg p.o. daily. 15.Zofran p.r.n. 16.Aspirin 81 mg p.o. daily. 17.Cozaar 50 mg p.o. daily. 18.Imdur ER 30 mg p.o. daily. 19.Lipitor 40 mg p.o. daily. 20.Nitro 0.6 mg sublingual p.r.n. 21.Plavix 75 mg p.o. daily. 22.Toprol-XL 50 mg p.o. daily. Once again the patient discharged in stable condition with guarded prognosis. MMODL / IJN: [id number] / MTDD
[2020-12-28] MEDS ORDERED: ASPIRIN 81 MG PO SCH (09:00)
[2020-12-28] MEDS ORDERED: METOPROLOL SUCCINATE (ER) 50 MG TAB.ER.24H PO SCH (09:00)
== END 2020-12-27 12:00 | disposition home or self-care (01) ==
LOC: EC 17:01 → 6NMEDSUR 19:42
PROVIDERS: ADMIT Hospitalist; ATTEND Hospitalist
DX: R07.89 Other chest pain (principal); I25.5 Ischemic cardiomyopathy; I25.2 Old myocardial infarction; I10 Essential (primary) hypertension; R61 Generalized hyperhidrosis; R00.2 Palpitations; R06.02 Shortness of breath; R11.2 Nausea with vomiting, unspecified; E78.5 Hyperlipidemia, unspecified; E03.9 Hypothyroidism, unspecified; F32.9 Major depressive disorder, single episode, unspecified; F17.290 Nicotine dependence, other tobacco product, uncomplicated; Z71.6 Tobacco abuse counseling; Z20.822 Contact with and (suspected) exposure to COVID-19; Z79.02 Long term (current) use of antithrombotics/antiplatelets; Z79.890 Hormone replacement therapy; Z79.899 Other long term (current) drug therapy; Z90.49 Acquired absence of other specified parts of digestive tract; Z98.891 History of uterine scar from previous surgery; Z98.61 Coronary angioplasty status; Z87.81 Personal history of (healed) traumatic fracture; Z98.890 Other specified postprocedural states; Z82.49 Family history of ischemic heart disease and other diseases of the circulatory system; Z80.41 Family history of malignant neoplasm of ovary; Z83.49 Family history of other endocrine, nutritional and metabolic diseases
CPT/HCPCS: 99285; 36415; 93005; 85379; 83880; 80061; 80053; 83690; 83735; 84484 ×2; 85025; 85610; 85730; 84703; 87635; 71046; G0378 ×2

== ENCOUNTER 2021-02-26 06:01 | Emergency (ER) | payer OTHER ==
[2021-02-26 06:06] VITALS: TEMP 98.9
[2021-02-26] MEDS ORDERED: SODIUM CHLORIDE 0.9% 2,000 ML IV STA (06:12)
[2021-02-26] MEDS ORDERED: ONDANSETRON 4 MG/2 ML VIAL IVP STA (06:12)
[2021-02-26 06:46] LABS: Appearance,Urine Clear (Clear); Basophils % (A) 0 %; Bilirubin,Urine Negative (Negative); Blood,Urine Negative (Negative); Color,Urine Yellow; Eosinophils # (A) 0.2 k/uL (0-0.7); Eosinophils % (A) 2 %; Glucose,Urine (UA) Negative (Negative); HCT 45.7 % (34.0-46.0); Ketones,Urine Negative (Negative); Leukocyte Esterase,Urine Negative (Negative); Lymphocytes # (A) 1.9 k/uL (1.0-4.8); Lymphocytes % (A) 20 %; MCH 29.2 pg (25.0-35.0); MCHC 32.8 g/dL (31.0-37.0); Mean Platelet Volume 7.6; Monocytes # (A) 0.5 k/uL (0-1.0); Monocytes % (A) 6 %; Neutrophils # (A) 6.9 k/uL (1.3-7.7); Neutrophils % (A) 71 %; Nitrite,Urine Negative (Negative); Platelet Count 306 k/uL (150-450); Protein,Urine Negative (Negative); RBC 5.14 m/uL (3.80-5.40); RDW 13.4 % (11.5-15.5); Specific Gravity,Urine 1.018 (1.001-1.035); Urobilinogen,Urine <2.0 mg/dL (<2.0); WBC 9.8 k/uL (3.8-10.6)
--- NOTE | 2021-02-26 06:46 | ED ---
Nausea/Vomiting/Diarrhea HPI - General Chief complaint: Nausea/Vomiting/Diarrhea Stated complaint: N/V Time Seen by Provider: 02/26/21 06:12 Source: patient, RN notes reviewed Mode of arrival: ambulatory Limitations: no limitations - History of Present Illness Initial comments: 20-year-old female presented the emergency Department with chief complaint of nausea vomiting. Patient states nauseated for the last 2 days. Patient states that she's had no fevers chills no cough or cold like symptoms. Patient denies any pain. She states she just has nausea is not alleviating. She denies any chance no diarrhea no headache no chest pain or shortness breath - Related Data Home Medications Medication Instructions Recorded Confirmed Biotin 5 mg PO DAILY 12/26/20 12/26/20 Collagen 1 tab PO DAILY 12/26/20 12/26/20 Ferrous Sulfate [Iron (65 MG 325 mg PO DAILY 12/26/20 12/26/20 Elemental)] Levothyroxine Sodium [Synthroid] 50 mcg PO DAILY 12/26/20 12/26/20 Niacin 500 mg PO DAILY 12/26/20 12/26/20 Omeprazole 20 mg PO DAILY PRN 12/26/20 12/26/20 Ondansetron [Zofran] 4 mg PO DAILY PRN 12/26/20 12/26/20 Pyridoxine [Vitamin B-6] 50 mg PO DAILY 12/26/20 12/26/20 Ubidecarenone [Co Q-10] 100 mg PO DAILY 12/26/20 12/26/20 Vitamin B Complex 1 cap PO DAILY 12/26/20 12/26/20 Previous Rx's Medication Instructions Recorded Atorvastatin [Lipitor] 40 mg PO DAILY #90 tab 09/11/20 Clopidogrel [Plavix] 75 mg PO DAILY #90 tab 09/11/20 Losartan [Cozaar] 50 mg PO DAILY #90 tab 09/11/20 Aspirin 81 mg PO DAILY tab 12/27/20 Isosorbide Mononitrate ER [Imdur] 30 mg PO DAILY #30 tab 12/27/20 Metoprolol Succinate (ER) [Toprol 50 mg PO DAILY 30 Days #30 tablet 12/27/20 XL] Nitroglycerin Sl Tabs [Nitrostat] 0.4 mg SUBLINGUAL Q5M PRN #20 tab 10/13/21 Omeprazole [PriLOSEC] 20 mg PO AC-BRKFST #14 cap 02/26/21 Ondansetron Odt [Zofran Odt] 4 mg PO Q8HR PRN #10 tab 02/26/21 Allergies Allergy/AdvReac Type Severity Reaction Status Date / Time No Known Allergies Allergy Verified 02/26/21 06:06 Review of Systems ROS Statement: Those systems with pertinent positive or pertinent negative responses have been documented in the HPI. ROS Other: All systems not noted in ROS Statement are negative. Past Medical History Past Medical History: Myocardial Infarction ([place]), Thyroid Disorder Additional Past Medical History / Comment(s): Broken right ankle 2019 Last Myocardial Infarction Date:: 09/08/20 History of Any Multi-Drug Resistant Organisms: None Reported Past Surgical History: Section, Cholecystectomy, Heart Catheterization Additional Past Surgical History / Comment(s): cardiac thrombectomy Past Anesthesia/Blood Transfusion Reactions: Previous Problems w/ Anesthesia Additional Past Anesthesia/Blood Transfusion Reaction / Comment(s): hypotension with epidural Past Psychological History: Depression Smoking Status: Vaper Past Alcohol Use History: None Reported Past Drug Use History: None Reported - Past Family History Mother History Unknown: Yes Family Medical History: Hypertension Additional Family Medical History / Comment(s): ovarian cancer, christiano, breast tumor (benign), "leaky valve" Father Family Medical History: Hyperlipidemia, Hypertension General Exam Limitations: no limitations General appearance: alert, in no apparent distress Head exam: Present: atraumatic, normocephalic, normal inspection Eye exam: Present: normal appearance, PERRL, EOMI. Absent: scleral icterus, conjunctival injection, periorbital swelling ENT exam: Present: normal exam, normal oropharynx, mucous membranes moist Neck exam: Present: normal inspection, full ROM. Absent: tenderness, meningismus, lymphadenopathy Respiratory exam: Present: normal lung sounds bilaterally. Absent: respiratory distress, wheezes, rales, rhonchi, stridor Cardiovascular Exam: Present: regular rate, normal rhythm, normal heart sounds. Absent: systolic murmur, diastolic murmur, rubs, gallop, clicks GI/Abdominal exam: Present: soft, normal bowel sounds. Absent: distended, tenderness, guarding, rebound, rigid Neurological exam: Present: alert, oriented X3 Skin exam: Present: warm, dry, intact, normal color. Absent: rash Course Vital Signs 12/13/21 06:03 Temperature 98.9 F Pulse Rate 76 Respiratory 20 Rate Blood Pressure 119/75 O2 Sat by Pulse 99 Oximetry Medical Decision Making - Medical Decision Making 28-year-old female presented for nausea vomiting and she feels greatly improved labs unremarkable be discharged in stable condition with antiemetics. - Lab Data Result diagrams: 02/26/21 06:23 02/26/21 06:23 Lab Results 02/26/21 02/26/21 02/26/21 Range/Units 06:23 06:23 06:23 WBC 9.8 (3.8-10.6) k/uL RBC 5.14 (3.80-5.40) m/uL Hgb 15.0 (11.4-16.0) gm/dL Hct 45.7 (34.0-46.0) % MCV 89.0 (80.0-100.0) fL MCH 29.2 (25.0-35.0) pg MCHC 32.8 (31.0-37.0) g/dL RDW 13.4 (11.5-15.5) % Plt Count 306 (150-450) k/uL MPV 7.6 Neutrophils % 71 % Lymphocytes % 20 % Monocytes % 6 % Eosinophils % 2 % Basophils % 0 % Neutrophils # 6.9 (1.3-7.7) k/uL Lymphocytes # 1.9 (1.0-4.8) k/uL Monocytes # 0.5 (0-1.0) k/uL Eosinophils # 0.2 (0-0.7) k/uL Basophils # 0.0 (0-0.2) k/uL Sodium (137-145) mmol/L Potassium (3.5-5.1) mmol/L Chloride (98-107) mmol/L Carbon Dioxide (22-30) mmol/L Anion Gap mmol/L BUN (7-17) mg/dL Creatinine (0.52-1.04) mg/dL Est GFR (CKD-EPI)AfAm (>60 ml/min/1.73 sqM) Est GFR (CKD-EPI)NonAf (>60 ml/min/1.73 sqM) Glucose (74-99) mg/dL Calcium (8.4-10.2) mg/dL Total Bilirubin (0.2-1.3) mg/dL AST (14-36) U/L ALT (4-34) U/L Alkaline Phosphatase (38-126) U/L Total Protein (6.3-8.2) g/dL Albumin (3.5-5.0) g/dL Amylase (30-110) U/L Lipase (23-300) U/L Urine Color Yellow Urine Appearance Clear (Clear) Urine pH 5.0 (5.0-8.0) Ur Specific [place] 1.018 (1.001-1.035) Urine Protein Negative (Negative) Urine Glucose (UA) Negative (Negative) Urine Ketones Negative (Negative) Urine Blood Negative (Negative) Urine Nitrite Negative (Negative) Urine Bilirubin Negative (Negative) Urine Urobilinogen <2.0 (<2.0) mg/dL Ur Leukocyte Esterase Negative (Negative) Urine HCG, Qual Not Detected (Not Detectd) Coronavirus (PCR) (Not Detectd) 02/26/21 02/26/21 Range/Units 06:23 06:23 WBC (3.8-10.6) k/uL RBC (3.80-5.40) m/uL Hgb (11.4-16.0) gm/dL Hct (34.0-46.0) % MCV (80.0-100.0) fL MCH (25.0-35.0) pg MCHC (31.0-37.0) g/dL RDW (11.5-15.5) % Plt Count (150-450) k/uL MPV Neutrophils % % Lymphocytes % % Monocytes % % Eosinophils % % Basophils % % Neutrophils # (1.3-7.7) k/uL Lymphocytes # (1.0-4.8) k/uL Monocytes # (0-1.0) k/uL Eosinophils # (0-0.7) k/uL Basophils # (0-0.2) k/uL Sodium 137 (137-145) mmol/L Potassium 4.2 (3.5-5.1) mmol/L Chloride 103 (98-107) mmol/L Carbon Dioxide 29 (22-30) mmol/L Anion Gap 5 mmol/L BUN 16 (7-17) mg/dL Creatinine 0.70 (0.52-1.04) mg/dL Est GFR (CKD-EPI)AfAm >90 (>60 ml/min/1.73 sqM) Est GFR (CKD-EPI)NonAf >90 (>60 ml/min/1.73 sqM) Glucose 100 H (74-99) mg/dL Calcium 9.5 (8.4-10.2) mg/dL Total Bilirubin 0.3 (0.2-1.3) mg/dL AST 29 (14-36) U/L ALT 24 (4-34) U/L Alkaline Phosphatase 103 (38-126) U/L Total Protein 6.8 (6.3-8.2) g/dL Albumin 3.9 (3.5-5.0) g/dL Amylase 31 (30-110) U/L Lipase 59 (23-300) U/L Urine Color Urine Appearance (Clear) Urine pH (5.0-8.0) Ur Specific [place] (1.001-1.035) Urine Protein (Negative) Urine Glucose (UA) (Negative) Urine Ketones (Negative) Urine Blood (Negative) Urine Nitrite (Negative) Urine Bilirubin (Negative) Urine Urobilinogen (<2.0) mg/dL Ur Leukocyte Esterase (Negative) Urine HCG, Qual (Not Detectd) Coronavirus (PCR) Not Detected (Not Detectd) Disposition Clinical Impression: Nausea Disposition: HOME SELF-CARE Condition: Stable Instructions (If sedation given, give patient instructions): Acute Nausea and Vomiting (ED) Additional Instructions: Please return to the Emergency Department if symptoms worsen or any other concerns. Prescriptions: Omeprazole [PriLOSEC] 20 mg PO AC-BRKFST #14 cap Ondansetron Odt [Zofran Odt] 4 mg PO Q8HR PRN #10 tab PRN Reason: Nausea Is patient prescribed a controlled substance at d/c from ED?: No Referrals: Lencho Quiroz III, MD [Primary Care Provider] - 1-2 days Time of Disposition: 08:24
[2021-02-26 07:02] LABS: ALT 24 U/L (4-34); AST 29 U/L (14-36); African American GFR (CKD) >90 (>60 ml/min/1.73 sqM); Albumin 3.9 g/dL (3.5-5.0); Alkaline Phosphatase 103 U/L (38-126); Amylase 31 U/L (30-110); Anion Gap 5 mmol/L; Blood Urea Nitrogen 16 mg/dL (7-17); Calcium 9.5 mg/dL (8.4-10.2); Carbon Dioxide 29 mmol/L (22-30); Chloride 103 mmol/L (98-107); Glucose 100 mg/dL (74-99); Lipase 59 U/L (23-300); Non-African American GFR(CKD) >90 (>60 ml/min/1.73 sqM); Potassium 4.2 mmol/L (3.5-5.1); Sodium 137 mmol/L (137-145); Total Bilirubin 0.3 mg/dL (0.2-1.3); Total Protein 6.8 g/dL (6.3-8.2)
[2021-02-26 08:48] VITALS: BP 94/56; PULSE 78; RESP 18
== END 2021-02-26 08:48 | disposition home or self-care (01) ==
LOC: EC 06:01
DX: R11.2 Nausea with vomiting, unspecified (principal); F17.290 Nicotine dependence, other tobacco product, uncomplicated; I25.2 Old myocardial infarction; E07.9 Disorder of thyroid, unspecified; Z79.890 Hormone replacement therapy; Z20.822 Contact with and (suspected) exposure to COVID-19
CPT/HCPCS: 36415; 80053; 82150; 83690; 85025; 81003; 81025; 87635; 99284; 96374; 96361; J2405

== ENCOUNTER 2021-03-01 22:50 | Emergency (ER) | payer OTHER ==
[2021-03-01 22:58] VITALS: TEMP 98.5
[2021-03-01] MEDS ORDERED: METOCLOPRAMIDE 5 MG/ML 2 ML VIAL IVP STA (23:30)
[2021-03-01] MEDS ORDERED: diphenhydrAMINE 50 MG/ML 1 ML VIAL IVP STA (23:30)
[2021-03-01] MEDS ORDERED: SODIUM CHLORIDE 0.9% 1,000 ML IV STA ×2 (23:30→23:31)
--- NOTE | 2021-03-01 23:46 | ED ---
General Adult HPI - General Chief complaint: Nausea/Vomiting/Diarrhea Stated complaint: vomiting Time Seen by Provider: 03/01/21 23:18 Source: patient Mode of arrival: ambulatory Limitations: no limitations - History of Present Illness Initial comments: 20-year-old female presents to the emergency room for a chief complaint of nausea vomiting diarrhea. Patient states this started about 5 days ago. Patient states she was seen here few days ago diagnosed with a stomach bug but that her symptoms haven't gone away completely. States she was fine for about 2 days after her ER visit and then it returned today. Patient denies any abdominal pain. Denies any fevers.Patient has no other complaints at this time including shortness of breath, chest pain, abdominal pain, headache, or visual changes. - Related Data Home Medications Medication Instructions Recorded Confirmed Levothyroxine Sodium [Synthroid] 50 mcg PO DAILY 12/26/20 02/26/21 Omeprazole 20 mg PO DAILY 12/26/20 02/26/21 Ondansetron [Zofran] 4 mg PO DAILY PRN 12/26/20 02/26/21 Previous Rx's Medication Instructions Recorded Atorvastatin [Lipitor] 40 mg PO DAILY #90 tab 09/11/20 Clopidogrel [Plavix] 75 mg PO DAILY #90 tab 09/11/20 Losartan [Cozaar] 50 mg PO DAILY #90 tab 09/11/20 Metoprolol Succinate (ER) [Toprol 50 mg PO DAILY 30 Days #30 tablet 12/27/20 XL] Nitroglycerin Sl Tabs [Nitrostat] 0.4 mg SUBLINGUAL Q5M PRN #20 tab 12/27/20 Omeprazole [PriLOSEC] 20 mg PO AC-BRKFST #14 cap 02/26/21 Ondansetron Odt [Zofran Odt] 4 mg PO Q8HR PRN #10 tab 02/26/21 Allergies Allergy/AdvReac Type Severity Reaction Status Date / Time No Known Allergies Allergy Verified 03/01/21 22:57 Review of Systems ROS Statement: Those systems with pertinent positive or pertinent negative responses have been documented in the HPI. ROS Other: All systems not noted in ROS Statement are negative. Past Medical History Past Medical History: Myocardial Infarction ([place]), Thyroid Disorder Additional Past Medical History / Comment(s): Broken right ankle 2019 Last Myocardial Infarction Date:: 09/08/20 History of Any Multi-Drug Resistant Organisms: None Reported Past Surgical History: Section, Cholecystectomy, Heart Catheterization Additional Past Surgical History / Comment(s): cardiac thrombectomy Past Anesthesia/Blood Transfusion Reactions: Previous Problems w/ Anesthesia Additional Past Anesthesia/Blood Transfusion Reaction / Comment(s): hypotension with epidural Past Psychological History: Depression Smoking Status: Vaper Past Alcohol Use History: None Reported Past Drug Use History: None Reported - Past Family History Mother History Unknown: Yes Family Medical History: Hypertension Additional Family Medical History / Comment(s): ovarian cancer, christiano, breast tumor (benign), "leaky valve" Father Family Medical History: Hyperlipidemia, Hypertension General Exam Limitations: no limitations General appearance: alert, in no apparent distress Head exam: Present: atraumatic Eye exam: Present: normal appearance, PERRL, EOMI. Absent: scleral icterus, conjunctival injection ENT exam: Present: normal exam, mucous membranes moist Neck exam: Present: normal inspection, full ROM. Absent: tenderness Respiratory exam: Present: normal lung sounds bilaterally. Absent: respiratory distress, wheezes Cardiovascular Exam: Present: regular rate, normal rhythm, normal heart sounds GI/Abdominal exam: Present: soft, normal bowel sounds. Absent: distended, tenderness Neurological exam: Present: alert Course Vital Signs 03/01/21 03/02/21 22:53 00:32 Temperature 98.5 F Pulse Rate 66 71 Respiratory 18 16 Rate Blood Pressure 125/85 118/72 O2 Sat by Pulse 99 98 Oximetry Medical Decision Making - Medical Decision Making vitals are stable. Patient is well-appearing. Abdomen is nontender. White blood cell count of 10.8 is likely reactive to vomiting. CMP urinalysis unremarkable. HCG and COVID-19 are negative. At this time patient likely is a viral etiology given her nausea vomiting and diarrhea. Recommend she follow up with her doctor and return here for any worsening symptoms. Patient already has a prescription of nausea medicine at home. - Lab Data Result diagrams: 03/01/21 00:09 03/01/21 00:09 Lab Results 03/01/21 03/01/21 03/01/21 Range/Units 00:09 00:09 00:09 WBC 10.8 H (3.8-10.6) k/uL RBC 5.17 (3.80-5.40) m/uL Hgb 14.8 (11.4-16.0) gm/dL Hct 46.3 H (34.0-46.0) % MCV 89.6 (80.0-100.0) fL MCH 28.7 (25.0-35.0) pg MCHC 32.0 (31.0-37.0) g/dL RDW 13.0 (11.5-15.5) % Plt Count 289 (150-450) k/uL MPV 7.8 Neutrophils % 61 % Lymphocytes % 28 % Monocytes % 6 % Eosinophils % 2 % Basophils % 1 % Neutrophils # 6.6 (1.3-7.7) k/uL Lymphocytes # 3.0 (1.0-4.8) k/uL Monocytes # 0.7 (0-1.0) k/uL Eosinophils # 0.2 (0-0.7) k/uL Basophils # 0.1 (0-0.2) k/uL Sodium 138 (137-145) mmol/L Potassium 4.3 (3.5-5.1) mmol/L Chloride 104 (98-107) mmol/L Carbon Dioxide 25 (22-30) mmol/L Anion Gap 9 mmol/L BUN 16 (7-17) mg/dL Creatinine 0.66 (0.52-1.04) mg/dL Est GFR (CKD-EPI)AfAm >90 (>60 ml/min/1.73 sqM) Est GFR (CKD-EPI)NonAf >90 (>60 ml/min/1.73 sqM) Glucose 88 (74-99) mg/dL Calcium 9.4 (8.4-10.2) mg/dL Total Bilirubin 0.3 (0.2-1.3) mg/dL AST 30 (14-36) U/L ALT 31 (4-34) U/L Alkaline Phosphatase 104 (38-126) U/L Total Protein 7.1 (6.3-8.2) g/dL Albumin 4.2 (3.5-5.0) g/dL Amylase 33 (30-110) U/L Lipase 53 (23-300) U/L Urine Color Yellow Urine Appearance Clear (Clear) Urine pH 6.5 (5.0-8.0) Ur Specific [place] 1.024 (1.001-1.035) Urine Protein Negative (Negative) Urine Glucose (UA) Negative (Negative) Urine Ketones Negative (Negative) Urine Blood Negative (Negative) Urine Nitrite Negative (Negative) Urine Bilirubin Negative (Negative) Urine Urobilinogen <2.0 (<2.0) mg/dL Ur Leukocyte Esterase Negative (Negative) Urine HCG, Qual (Not Detectd) Coronavirus (PCR) (Not Detectd) 03/01/21 03/01/21 Range/Units 00:09 00:09 WBC (3.8-10.6) k/uL RBC (3.80-5.40) m/uL Hgb (11.4-16.0) gm/dL Hct (34.0-46.0) % MCV (80.0-100.0) fL MCH (25.0-35.0) pg MCHC (31.0-37.0) g/dL RDW (11.5-15.5) % Plt Count (150-450) k/uL MPV Neutrophils % % Lymphocytes % % Monocytes % % Eosinophils % % Basophils % % Neutrophils # (1.3-7.7) k/uL Lymphocytes # (1.0-4.8) k/uL Monocytes # (0-1.0) k/uL Eosinophils # (0-0.7) k/uL Basophils # (0-0.2) k/uL Sodium (137-145) mmol/L Potassium (3.5-5.1) mmol/L Chloride (98-107) mmol/L Carbon Dioxide (22-30) mmol/L Anion Gap mmol/L BUN (7-17) mg/dL Creatinine (0.52-1.04) mg/dL Est GFR (CKD-EPI)AfAm (>60 ml/min/1.73 sqM) Est GFR (CKD-EPI)NonAf (>60 ml/min/1.73 sqM) Glucose (74-99) mg/dL Calcium (8.4-10.2) mg/dL Total Bilirubin (0.2-1.3) mg/dL AST (14-36) U/L ALT (4-34) U/L Alkaline Phosphatase (38-126) U/L Total Protein (6.3-8.2) g/dL Albumin (3.5-5.0) g/dL Amylase (30-110) U/L Lipase (23-300) U/L Urine Color Urine Appearance (Clear) Urine pH (5.0-8.0) Ur Specific [place] (1.001-1.035) Urine Protein (Negative) Urine Glucose (UA) (Negative) Urine Ketones (Negative) Urine Blood (Negative) Urine Nitrite (Negative) Urine Bilirubin (Negative) Urine Urobilinogen (<2.0) mg/dL Ur Leukocyte Esterase (Negative) Urine HCG, Qual Not Detected (Not Detectd) Coronavirus (PCR) Not Detected (Not Detectd) Disposition Clinical Impression: Nausea vomiting and diarrhea Disposition: HOME SELF-CARE Condition: Good Instructions (If sedation given, give patient instructions): Acute Nausea and Vomiting (ED) Additional Instructions: Drink plenty of fluids. Follow-up with your doctor in one to 2 days. Return to the emergency room for any worsening symptoms. Is patient prescribed a controlled substance at d/c from ED?: No Referrals: Lencho Quiroz III, MD [Primary Care Provider] - 1-2 days Time of Disposition: 01:28
[2021-03-02 00:33] VITALS: BP 118/72; PULSE 71; RESP 16
[2021-03-02 00:42] LABS: Basophils # (A) 0.1 k/uL (0-0.2); Basophils % (A) 1 %; Eosinophils # (A) 0.2 k/uL (0-0.7); Eosinophils % (A) 2 %; HCT 46.3 % (34.0-46.0); HGB 14.8 gm/dL (11.4-16.0); Lymphocytes % (A) 28 %; MCH 28.7 pg (25.0-35.0); MCV 89.6 fL (80.0-100.0); Mean Platelet Volume 7.8; Monocytes # (A) 0.7 k/uL (0-1.0); Monocytes % (A) 6 %; Neutrophils # (A) 6.6 k/uL (1.3-7.7); Neutrophils % (A) 61 %; Platelet Count 289 k/uL (150-450); RBC 5.17 m/uL (3.80-5.40); WBC 10.8 k/uL (3.8-10.6)
[2021-03-02 00:43] LABS: Appearance,Urine Clear (Clear); Bilirubin,Urine Negative (Negative); Blood,Urine Negative (Negative); Color,Urine Yellow; Glucose,Urine (UA) Negative (Negative); Ketones,Urine Negative (Negative); Leukocyte Esterase,Urine Negative (Negative); Nitrite,Urine Negative (Negative); PH, Urine 6.5 (5.0-8.0); Protein,Urine Negative (Negative); Specific Gravity,Urine 1.024 (1.001-1.035); Urobilinogen,Urine <2.0 mg/dL (<2.0)
[2021-03-02 00:54] LABS: Sodium 138 mmol/L (137-145)
[2021-03-02 00:56] LABS: ALT 31 U/L (4-34); AST 30 U/L (14-36); African American GFR (CKD) >90 (>60 ml/min/1.73 sqM); Albumin 4.2 g/dL (3.5-5.0); Alkaline Phosphatase 104 U/L (38-126); Amylase 33 U/L (30-110); Anion Gap 9 mmol/L; Blood Urea Nitrogen 16 mg/dL (7-17); Calcium 9.4 mg/dL (8.4-10.2); Carbon Dioxide 25 mmol/L (22-30); Chloride 104 mmol/L (98-107); Glucose 88 mg/dL (74-99); Lipase 53 U/L (23-300); Non-African American GFR(CKD) >90 (>60 ml/min/1.73 sqM); Potassium 4.3 mmol/L (3.5-5.1); Total Bilirubin 0.3 mg/dL (0.2-1.3); Total Protein 7.1 g/dL (6.3-8.2)
== END 2021-03-02 02:50 | disposition home or self-care (01) ==
LOC: EC 22:50
DX: R11.2 Nausea with vomiting, unspecified (principal); R19.7 Diarrhea, unspecified; F17.290 Nicotine dependence, other tobacco product, uncomplicated; I25.2 Old myocardial infarction; E07.9 Disorder of thyroid, unspecified; Z79.890 Hormone replacement therapy; Z20.822 Contact with and (suspected) exposure to COVID-19
CPT/HCPCS: 36415; 80053; 82150; 83690; 85025; 81003; 81025; 87635; 99284; 96374; 96375; 96361; J1200; J2765

== ENCOUNTER 2021-06-27 12:57 | Emergency (ER) | payer OTHER ==
[2021-06-27 13:02] VITALS: BP 113/71; RESP 18; TEMP 97.5
[2021-06-27] MEDS ORDERED: IPRATROPIUM-ALBUTEROL 3 ML NEB INHALATION STA (13:23)
[2021-06-27] MEDS ORDERED: predniSONE 50 MG TAB PO STA (13:23)
--- NOTE | 2021-06-27 13:26 | ED ---
General Adult HPI - General Chief complaint: Upper Respiratory Infection Stated complaint: Chest Pain/Sore throat Time Seen by Provider: 06/27/21 13:00 Source: patient, RN notes reviewed, old records reviewed Mode of arrival: ambulatory Limitations: no limitations - History of Present Illness Initial comments: This is a 21-year-old female presents emergency Department stating for about a week she's had upper respiratory symptoms. Patient states she's been coughing and coughing up some brown sputum. Patient is also complains of a sore throat. Patient states at work today she was just: She was negative. Patient states she's not had a fever or chills. Patient states she has some tightness in her chest but no chest pain and she is not really that short of breath. Patient states she does vape. Patient denies any chest pain or palpitations patient denies abdominal pain. Patient denies nausea vomiting. - Related Data Home Medications Medication Instructions Recorded Confirmed Levothyroxine Sodium [Synthroid] 50 mcg PO DAILY 12/26/20 06/27/21 Omeprazole 20 mg PO DAILY 12/26/20 06/27/21 Aspirin EC [Ecotrin Low Dose] 81 mg PO DAILY 06/27/21 06/27/21 Sertraline [Zoloft] 50 mg PO DAILY 06/27/21 06/27/21 Previous Rx's Medication Instructions Recorded Atorvastatin [Lipitor] 40 mg PO DAILY #90 tab 09/11/20 Clopidogrel [Plavix] 75 mg PO DAILY #90 tab 09/11/20 Losartan [Cozaar] 50 mg PO DAILY #90 tab 09/11/20 Metoprolol Succinate (ER) [Toprol 50 mg PO DAILY 30 Days #30 tablet 12/27/20 XL] Nitroglycerin Sl Tabs [Nitrostat] 0.4 mg SUBLINGUAL Q5M PRN #20 tab 12/27/20 Albuterol Inhaler [Ventolin Hfa 2 puff INHALATION RT-QID #18 gm 06/27/21 Inhaler] Azithromycin [Zithromax Tri-Isaiah] 500 mg PO DAILY #3 tab 06/27/21 predniSONE [Deltasone] 40 mg PO DAILY #8 tab 06/27/21 Allergies Allergy/AdvReac Type Severity Reaction Status Date / Time No Known Allergies Allergy Verified 06/27/21 14:02 Review of Systems ROS Statement: Those systems with pertinent positive or pertinent negative responses have been documented in the HPI. ROS Other: All systems not noted in ROS Statement are negative. Past Medical History Past Medical History: Myocardial Infarction ([place]), Thyroid Disorder Additional Past Medical History / Comment(s): Broken right ankle 2019 Last Myocardial Infarction Date:: 09/08/20 History of Any Multi-Drug Resistant Organisms: None Reported Past Surgical History: Section, Cholecystectomy, Heart Catheterization Additional Past Surgical History / Comment(s): cardiac thrombectomy Past Anesthesia/Blood Transfusion Reactions: Previous Problems w/ Anesthesia Additional Past Anesthesia/Blood Transfusion Reaction / Comment(s): hypotension with epidural Past Psychological History: Depression Smoking Status: Vaper Past Alcohol Use History: None Reported Past Drug Use History: None Reported - Past Family History Mother History Unknown: Yes Family Medical History: Hypertension Additional Family Medical History / Comment(s): ovarian cancer, christiano, breast tumor (benign), "leaky valve" Father Family Medical History: Hyperlipidemia, Hypertension General Exam - General Exam Comments Initial Comments: GENERAL: Patient is well-developed and well-nourished. Patient is nontoxic and well- hydrated and is in mild distress. ENT: Neck is soft and supple. No significant lymphadenopathy is noted. Oropharynx is red. Moist mucous membranes. Neck has full range of motion without eliciting any pain. EYES: The sclera were anicteric and conjunctiva were pink and moist. Extraocular movements were intact and pupils were equal round and reactive to light. Eyelids were unremarkable. PULMONARY: Expiratory wheezing CARDIOVASCULAR: There is a regular rate and rhythm without any murmurs gallops or rubs. ABDOMEN: Soft and nontender with normal bowel sounds. SKIN: Skin is clear with no lesions or rashes and otherwise unremarkable. NEUROLOGIC: Patient is alert and oriented x3. Cranial nerves II through XII are grossly intact. Motor and sensory are also intact. Normal speech, volume and content. Symmetrical smile. MUSCULOSKELETAL: Normal extremities with adequate strength and full range of motion. LYMPHATICS: Patient has some cervical anterior lymphadenopathy PSYCHIATRIC: Normal psychiatric evaluation. Limitations: no limitations Course Vital Signs 06/27/21 06/27/21 06/27/21 12:58 14:25 14:35 Temperature 97.5 F L Pulse Rate 91 80 80 Respiratory 18 Rate Blood Pressure 113/71 O2 Sat by Pulse 97 Oximetry Medical Decision Making - Medical Decision Making Chest x-ray shows no acute abnormality. Patient received 2 breathing treatments and steroids and when I went back in to listen to the patient she was still wheezing but much improved. Patient stated she felt much improved. - Lab Data Lab Results 06/27/21 Range/Units 13:34 Group A Strep Rapid Negative (Negative) Disposition Clinical Impression: Acute bronchitis Disposition: HOME SELF-CARE Condition: Good Instructions (If sedation given, give patient instructions): Acute Bronchitis (ED) Prescriptions: predniSONE [Deltasone] 40 mg PO DAILY #8 tab Albuterol Inhaler [Ventolin Hfa Inhaler] 2 puff INHALATION RT-QID #18 gm Azithromycin [Zithromax Tri-Isaiah] 500 mg PO DAILY #3 tab Is patient prescribed a controlled substance at d/c from ED?: No Referrals: Lencho Quiroz III, MD [Primary Care Provider] - 1-2 days Time of Disposition: 15:27
--- NOTE | 2021-06-27 14:06 | XR ---
EXAMINATION TYPE: XR chest 2V DATE OF EXAM: 06/27/2021 COMPARISON: 12/26/2020 TECHNIQUE: PA and lateral views submitted. HISTORY: Chest pain FINDINGS: The lungs are clear and there is no pneumothorax, pleural effusion, or focal pneumonia. Heart size is normal. No overt failure. No pleural effusion. IMPRESSION: 1. No acute process.
[2021-06-27 14:27] VITALS: PULSE 80
== END 2021-06-27 15:55 | disposition home or self-care (01) ==
LOC: EC 12:57
DX: J20.9 Acute bronchitis, unspecified (principal); I25.2 Old myocardial infarction; E07.9 Disorder of thyroid, unspecified; Z79.890 Hormone replacement therapy; F17.209 Nicotine dependence, unspecified, with unspecified nicotine-induced disorders
CPT/HCPCS: 94640; 87081; 87430; 71046; 99285; J7512

== ENCOUNTER 2021-08-15 07:08 | Observation (INO) | payer OTHER ==
[2021-08-15 07:25] VITALS: RESP 16
[2021-08-15] MEDS ORDERED: SODIUM CHLORIDE 0.9% 1,000 ML IV STA (07:36)
--- NOTE | 2021-08-15 08:03 | ED ---
General Adult HPI - General Chief complaint: Chest Pain Stated complaint: Chest pain Time Seen by Provider: 08/15/21 07:28 Source: patient Mode of arrival: ambulatory Limitations: no limitations - History of Present Illness Initial comments: This is a well-appearing 21-year-old female that presents to the emergency room with complaints of chest pain. 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 She states that it lasted approximately one hour and then resolved. She did not eat anything today before going to work. She does take Plavix and aspirin for history of coronary artery disease, [place]. Mom states that she has a 99% blockage in one of her coronary arteries and when she went underwent a cardiac catheterization last year and decided not to intervene related to risk versus benefit. She also has a history of hypothyroid. She denies any difficulty in breathing or diaphoresis pain did not radiate. She does vape but does not smoke cigarettes. -: hour(s) (2) Location: chest Radiation: non-radiation Severity scale (1-10): 0 Quality: other (tightness) Consistency: now resolved Associated Symptoms: other (chills and dizziness) - Related Data Home Medications Medication Instructions Recorded Confirmed Levothyroxine Sodium [Synthroid] 50 mcg PO DAILY 12/26/20 08/15/21 Aspirin EC [Ecotrin Low Dose] 81 mg PO DAILY 06/27/21 08/15/21 Previous Rx's Medication Instructions Recorded Atorvastatin [Lipitor] 40 mg PO DAILY #90 tab 09/11/20 Clopidogrel [Plavix] 75 mg PO DAILY #90 tab 09/11/20 Losartan [Cozaar] 50 mg PO DAILY #90 tab 09/11/20 Metoprolol Succinate (ER) [Toprol 50 mg PO DAILY 30 Days #30 tablet 12/27/20 XL] Nitroglycerin Sl Tabs [Nitrostat] 0.4 mg SUBLINGUAL Q5M PRN #20 tab 12/27/20 Allergies Allergy/AdvReac Type Severity Reaction Status Date / Time No Known Allergies Allergy Verified 08/15/21 08:31 Review of Systems ROS Statement: Those systems with pertinent positive or pertinent negative responses have been documented in the HPI. ROS Other: All systems not noted in ROS Statement are negative. Past Medical History Past Medical History: Myocardial Infarction ([place]), Thyroid Disorder Additional Past Medical History / Comment(s): Broken right ankle 2019 Last Myocardial Infarction Date:: 09/08/20 History of Any Multi-Drug Resistant Organisms: None Reported Past Surgical History: Section, Cholecystectomy, Heart Catheterization Additional Past Surgical History / Comment(s): cardiac thrombectomy Past Anesthesia/Blood Transfusion Reactions: Previous Problems w/ Anesthesia Additional Past Anesthesia/Blood Transfusion Reaction / Comment(s): hypotension with epidural Past Psychological History: Depression Smoking Status: Vaper Past Alcohol Use History: None Reported Past Drug Use History: None Reported - Past Family History Mother History Unknown: Yes Family Medical History: Hypertension Additional Family Medical History / Comment(s): ovarian cancer, christiano, breast tumor (benign), "leaky valve" Father Family Medical History: Hyperlipidemia, Hypertension General Exam Limitations: no limitations General appearance: alert, in no apparent distress Head exam: Present: atraumatic, normocephalic Eye exam: Present: normal appearance. Absent: scleral icterus, conjunctival injection ENT exam: Present: normal exam, normal oropharynx, mucous membranes moist Neck exam: Present: normal inspection, full ROM. Absent: tenderness, meningismus, lymphadenopathy Respiratory exam: Present: normal lung sounds bilaterally. Absent: respiratory distress, accessory muscle use Cardiovascular Exam: Present: regular rate, normal rhythm, normal heart sounds GI/Abdominal exam: Present: soft Extremities exam: Present: normal capillary refill. Absent: tenderness, pedal edema Back exam: Present: normal inspection, full ROM. Absent: tenderness, CVA tenderness (R), CVA tenderness (L), rash noted Neurological exam: Present: alert, oriented X3 Psychiatric exam: Present: normal affect, normal mood Skin exam: Present: warm, dry, intact, normal color. Absent: cyanosis, diaphoretic, petechiae, pallor Course Vital Signs 08/15/21 08/15/21 08/15/21 07:22 07:41 08:55 Temperature 98.2 F Pulse Rate 76 79 75 Respiratory 16 16 16 Rate Blood Pressure 114/80 110/84 120/80 O2 Sat by Pulse 99 98 98 Oximetry 08/15/21 09:47 Temperature 97.8 F Pulse Rate 78 Respiratory 16 Rate Blood Pressure 111/93 O2 Sat by Pulse 98 Oximetry EKG Findings - EKG Results: EKG: sinus rhythm (Ventricular rate 68, NV of 0.152, QRS 0.96, QTC 0.404) Medical Decision Making - Medical Decision Making Patient has had a history of AL in August 2020. She did undergo a cardiac catheterization which revealed a 99% stenosis of posterior left ventricular artery. She is taking Plavix and aspirin. She does continue to vape. Her chest pain lasted one hour today. Chest x-ray shows no acute cardiopulmonary disease. Hemoglobin and hematocrit are stable. Electrolytes unremarkable. D-dimer is negative. Troponin is negative at 0.012. EKG shows no significant changes, no ST elevation. Due to patient's cardiac history and 99% stenosis of the left circumflex seen in cardiac catheterization last year she will be placed in observation with cardiac consult. Case discussed with Dr. Fernandez. At approximately 0945, Nurse notified me that patient left AGAINST MEDICAL ADVIC E - Lab Data Result diagrams: 08/15/21 08:06 08/15/21 08:06 Lab Results 08/15/21 08/15/21 08/15/21 Range/Units 08:06 08:06 08:06 WBC 9.0 (3.8-10.6) k/uL RBC 5.12 (3.80-5.40) m/uL Hgb 14.7 (11.4-16.0) gm/dL Hct 45.3 (34.0-46.0) % MCV 88.3 (80.0-100.0) fL MCH 28.7 (25.0-35.0) pg MCHC 32.5 (31.0-37.0) g/dL RDW 13.0 (11.5-15.5) % Plt Count 320 (150-450) k/uL MPV 7.9 Neutrophils % 68 % Lymphocytes % 21 % Monocytes % 6 % Eosinophils % 2 % Basophils % 1 % Neutrophils # 6.2 (1.3-7.7) k/uL Lymphocytes # 1.9 (1.0-4.8) k/uL Monocytes # 0.5 (0-1.0) k/uL Eosinophils # 0.2 (0-0.7) k/uL Basophils # 0.1 (0-0.2) k/uL PT 10.2 (9.0-12.0) sec INR 0.9 (<1.2) APTT 25.7 (22.0-30.0) sec D-Dimer 0.28 (<0.60) mg/L FEU Sodium 139 (137-145) mmol/L Potassium 4.3 (3.5-5.1) mmol/L Chloride 104 (98-107) mmol/L Carbon Dioxide 25 (22-30) mmol/L Anion Gap 10 mmol/L BUN 14 (7-17) mg/dL Creatinine 0.65 (0.52-1.04) mg/dL Est GFR (CKD-EPI)AfAm >90 (>60 ml/min/1.73 sqM) Est GFR (CKD-EPI)NonAf >90 (>60 ml/min/1.73 sqM) Glucose 93 (74-99) mg/dL Calcium 9.3 (8.4-10.2) mg/dL Magnesium 1.9 (1.6-2.3) mg/dL Total Bilirubin 0.2 (0.2-1.3) mg/dL AST 26 (14-36) U/L ALT 22 (4-34) U/L Alkaline Phosphatase 102 (38-126) U/L Troponin I (0.000-0.034) ng/mL Total Protein 7.7 (6.3-8.2) g/dL Albumin 4.5 (3.5-5.0) g/dL 08/15/21 Range/Units 08:06 WBC (3.8-10.6) k/uL RBC (3.80-5.40) m/uL Hgb (11.4-16.0) gm/dL Hct (34.0-46.0) % MCV (80.0-100.0) fL MCH (25.0-35.0) pg MCHC (31.0-37.0) g/dL RDW (11.5-15.5) % Plt Count (150-450) k/uL MPV Neutrophils % % Lymphocytes % % Monocytes % % Eosinophils % % Basophils % % Neutrophils # (1.3-7.7) k/uL Lymphocytes # (1.0-4.8) k/uL Monocytes # (0-1.0) k/uL Eosinophils # (0-0.7) k/uL Basophils # (0-0.2) k/uL PT (9.0-12.0) sec INR (<1.2) APTT (22.0-30.0) sec D-Dimer (<0.60) mg/L FEU Sodium (137-145) mmol/L Potassium (3.5-5.1) mmol/L Chloride (98-107) mmol/L Carbon Dioxide (22-30) mmol/L Anion Gap mmol/L BUN (7-17) mg/dL Creatinine (0.52-1.04) mg/dL Est GFR (CKD-EPI)AfAm (>60 ml/min/1.73 sqM) Est GFR (CKD-EPI)NonAf (>60 ml/min/1.73 sqM) Glucose (74-99) mg/dL Calcium (8.4-10.2) mg/dL Magnesium (1.6-2.3) mg/dL Total Bilirubin (0.2-1.3) mg/dL AST (14-36) U/L ALT (4-34) U/L Alkaline Phosphatase (38-126) U/L Troponin I <0.012 (0.000-0.034) ng/mL Total Protein (6.3-8.2) g/dL Albumin (3.5-5.0) g/dL Disposition Clinical Impression: Chest pain Disposition: Left Against Medical Advice Condition: Fair Decision Date: 08/15/21 Decision Time: 08:10
--- NOTE | 2021-08-15 08:26 | XR ---
EXAMINATION TYPE: XR chest 2V DATE OF EXAM: 08/15/2021 COMPARISON: 06/27/2021 INDICATION: Chest pain, history of AL TECHNIQUE: Frontal and lateral views of the chest are obtained. FINDINGS: The heart size is normal. The pulmonary vasculature is normal. The lungs are clear. Bilateral nipple piercings are present. IMPRESSION: 1. No acute pulmonary process.
[2021-08-15 08:31] LABS: ALT 22 U/L (4-34); AST 26 U/L (14-36); African American GFR (CKD) >90 (>60 ml/min/1.73 sqM); Albumin 4.5 g/dL (3.5-5.0); Alkaline Phosphatase 102 U/L (38-126); Anion Gap 10 mmol/L; Basophils # (A) 0.1 k/uL (0-0.2); Basophils % (A) 1 %; Blood Urea Nitrogen 14 mg/dL (7-17); Calcium 9.3 mg/dL (8.4-10.2); Carbon Dioxide 25 mmol/L (22-30); Chloride 104 mmol/L (98-107); Eosinophils # (A) 0.2 k/uL (0-0.7); Eosinophils % (A) 2 %; Glucose 93 mg/dL (74-99); HCT 45.3 % (34.0-46.0); HGB 14.7 gm/dL (11.4-16.0); Lymphocytes # (A) 1.9 k/uL (1.0-4.8); Lymphocytes % (A) 21 %; MCH 28.7 pg (25.0-35.0); MCHC 32.5 g/dL (31.0-37.0); MCV 88.3 fL (80.0-100.0); Magnesium 1.9 mg/dL (1.6-2.3); Mean Platelet Volume 7.9; Monocytes # (A) 0.5 k/uL (0-1.0); Monocytes % (A) 6 %; Neutrophils # (A) 6.2 k/uL (1.3-7.7); Neutrophils % (A) 68 %; Non-African American GFR(CKD) >90 (>60 ml/min/1.73 sqM); Platelet Count 320 k/uL (150-450); Potassium 4.3 mmol/L (3.5-5.1); RBC 5.12 m/uL (3.80-5.40); Sodium 139 mmol/L (137-145); Total Bilirubin 0.2 mg/dL (0.2-1.3); Total Protein 7.7 g/dL (6.3-8.2)
[2021-08-15 08:35] LABS: INR 0.9 (<1.2); Partial Thromboplastin Time 25.7 sec (22.0-30.0); Prothrombin Time 10.2 sec (9.0-12.0)
[2021-08-15] MEDS ORDERED: NALOXONE 0.4 MG/ML 1 ML VIAL IV PRN (09:14)
[2021-08-15 09:48] VITALS: BP 111/93; PULSE 78; TEMP 97.8
[2021-08-16] MEDS ORDERED: LEVOTHYROXINE 50 MCG TAB PO SCH (06:30)
[2021-08-16] MEDS ORDERED: ATORVASTATIN 40 MG TAB PO SCH (09:00)
[2021-08-16] MEDS ORDERED: LOSARTAN 50 MG TAB PO SCH (09:00)
[2021-08-16] MEDS ORDERED: ASPIRIN 81 MG PO SCH (09:00)
[2021-08-16] MEDS ORDERED: METOPROLOL SUCCINATE (ER) 50 MG TAB.ER.24H PO SCH (09:00)
[2021-08-16] MEDS ORDERED: CLOPIDOGREL 75 MG TAB PO SCH (09:00)
== END 2021-08-15 09:46 | disposition left against medical advice (07) ==
LOC: EC 07:08 → 6NMEDSUR 09:30
PROVIDERS: ADMIT Internal Medicine; ATTEND Internal Medicine
DX: R07.89 Other chest pain (principal); Z53.29 Procedure and treatment not carried out because of patient's decision for other reasons; E03.9 Hypothyroidism, unspecified; I25.10 Atherosclerotic heart disease of native coronary artery without angina pectoris; I25.2 Old myocardial infarction; R68.83 Chills (without fever); R42 Dizziness and giddiness; F32.A Depression, unspecified; Z79.02 Long term (current) use of antithrombotics/antiplatelets; Z79.82 Long term (current) use of aspirin; Z79.890 Hormone replacement therapy; Z79.899 Other long term (current) drug therapy; Z80.41 Family history of malignant neoplasm of ovary; Z82.49 Family history of ischemic heart disease and other diseases of the circulatory system
CPT/HCPCS: 99285; 96360; 36415; 93005; 85379; 80053; 83735; 84484; 85025; 85610; 85730; 71046; G0378

== ENCOUNTER 2021-11-12 13:21 | Emergency (ER) | payer OTHER ==
[2021-11-12 13:32] VITALS: BP 130/82; PULSE 75; RESP 20; TEMP 97.7
[2021-11-12] MEDS ORDERED: DIPH,PERTUS(ACELL)TETVAC-LF 0.5 ML VIAL IM ONE (13:46)
--- NOTE | 2021-11-12 13:50 | ED ---
General Adult HPI - General Chief complaint: Animal Bite Stated complaint: Cat bite Time Seen by Provider: 11/12/21 13:33 Source: patient, RN notes reviewed, old records reviewed Mode of arrival: ambulatory Limitations: no limitations - History of Present Illness Initial comments: 21-year-old female presenting for evaluation of Bite which occurred yesterday. This is patient's personal cat. She was giving the cat a bath when he got startled and bit her left forearm. She's had increased pain and swelling at the site of the bite. No fevers. She is uncertain of her tetanus status. The cat is fully vaccinated and has prolonged of the patient for the past 3 years. - Related Data Home Medications Medication Instructions Recorded Confirmed Levothyroxine Sodium [Synthroid] 50 mcg PO DAILY 12/26/20 08/15/21 Aspirin EC [Ecotrin Low Dose] 81 mg PO DAILY 06/27/21 08/15/21 Previous Rx's Medication Instructions Recorded Atorvastatin [Lipitor] 40 mg PO DAILY #90 tab 09/11/20 Clopidogrel [Plavix] 75 mg PO DAILY #90 tab 09/11/20 Losartan [Cozaar] 50 mg PO DAILY #90 tab 09/11/20 Metoprolol Succinate (ER) [Toprol 50 mg PO DAILY 30 Days #30 tablet 12/27/20 XL] Nitroglycerin Sl Tabs [Nitrostat] 0.4 mg SUBLINGUAL Q5M PRN #20 tab 12/27/20 Amoxic-Pot Clav 875-125Mg 1 tab PO BID 10 Days #20 tab 11/12/21 [Augmentin 875-125] Allergies Allergy/AdvReac Type Severity Reaction Status Date / Time No Known Allergies Allergy Verified 11/12/21 13:32 Review of Systems ROS Statement: Those systems with pertinent positive or pertinent negative responses have been documented in the HPI. ROS Other: All systems not noted in ROS Statement are negative. Past Medical History Past Medical History: Myocardial Infarction ([place]), Thyroid Disorder Additional Past Medical History / Comment(s): Broken right ankle 2019 Last Myocardial Infarction Date:: 09/08/20 History of Any Multi-Drug Resistant Organisms: None Reported Past Surgical History: Section, Cholecystectomy, Heart Catheterization Additional Past Surgical History / Comment(s): cardiac thrombectomy Past Anesthesia/Blood Transfusion Reactions: Previous Problems w/ Anesthesia Additional Past Anesthesia/Blood Transfusion Reaction / Comment(s): hypotension with epidural Past Psychological History: Depression Smoking Status: Vaper Past Alcohol Use History: Occasional Past Drug Use History: Marijuana - Past Family History Mother History Unknown: Yes Family Medical History: Hypertension Additional Family Medical History / Comment(s): ovarian cancer, christiano, breast tumor (benign), "leaky valve" Father Family Medical History: Hyperlipidemia, Hypertension General Exam Limitations: no limitations General appearance: alert, in no apparent distress Head exam: Present: atraumatic, normocephalic Eye exam: Present: normal appearance, PERRL ENT exam: Present: normal exam Neck exam: Present: normal inspection. Absent: tenderness, meningismus Respiratory exam: Present: normal lung sounds bilaterally. Absent: respiratory distress, wheezes Cardiovascular Exam: Present: regular rate, normal rhythm GI/Abdominal exam: Present: soft. Absent: distended, tenderness Extremities exam: Present: other (2 puncture bryant in the left distal forearm with surrounding erythema approximately 4 total centimeters of erythema. No drainable abscess. No pain with range of motion of the digits.) Neurological exam: Present: alert, oriented X3, CN II-XII intact. Absent: motor sensory deficit Psychiatric exam: Present: normal affect, normal mood Course Vital Signs 11/12/21 13:30 Temperature 97.7 F Pulse Rate 75 Respiratory 20 Rate Blood Pressure 130/82 O2 Sat by Pulse 97 Oximetry Medical Decision Making - Medical Decision Making 21-year-old female with Bite to the left arm. This is her personal Which is vaccinated. Tetanus is updated emergency department. She has 2 puncture wounds with surrounding erythema. There is no significant swelling. There is no pain with range of motion of the digits. She is afebrile. She will monitor her pain swelling and erythema very closely. She started on Augmentin. Disposition Clinical Impression: Cat bite Disposition: HOME SELF-CARE Condition: Good Instructions (If sedation given, give patient instructions): Animal Bite (ED) Prescriptions: Amoxic-Pot Clav 875-125Mg [Augmentin 875-125] 1 tab PO BID 10 Days #20 tab Is patient prescribed a controlled substance at d/c from ED?: No Referrals: Lencho Quiroz III, MD [Primary Care Provider] - 1-2 days Time of Disposition: 13:49
== END 2021-11-12 13:59 | disposition home or self-care (01) ==
LOC: EC 13:21
DX: S51.852A Open bite of left forearm, initial encounter (principal); E07.9 Disorder of thyroid, unspecified; Z82.49 Family history of ischemic heart disease and other diseases of the circulatory system; Z79.899 Other long term (current) drug therapy; Z23 Encounter for immunization; F17.209 Nicotine dependence, unspecified, with unspecified nicotine-induced disorders; W55.01XA Bitten by cat, initial encounter
CPT/HCPCS: 90471; 90715; 99283

== ENCOUNTER 2022-01-27 13:12 | Emergency (ER) | payer OTHER ==
[2022-01-27 13:16] VITALS: TEMP 97.5
[2022-01-27] MEDS ORDERED: SODIUM CHLORIDE 0.9% 1,000 ML IV STA (13:26)
--- NOTE | 2022-01-27 13:40 | ED ---
Female Urogenital HPI - General Chief complaint: Vaginal Bleeding Stated complaint: newly , cramping/bleeding Time Seen by Provider: 01/27/22 13:16 Source: patient, RN notes reviewed Mode of arrival: ambulatory Limitations: no limitations - History of Present Illness Initial comments: Patient is a 21-year-old female presenting to the emergency room with concerns of large clot passage and heavy menstrual bleeding ongoing for the last 24 hours. She states that her last menstrual cycle was supposed to be 4 weeks ago in which she only had some light spotting consequently she believes that she was and she was having implementation around the time of her last cycle and was under the impression that she may possibly be approximately 8 weeks at this time. She did not take a test. This would be the patient's second in which her first resulted with full-term healthy boy via . In addition to her vaginal bleeding and pelvic/abdominal cramping she did have a fever yesterday which she treated with Motrin and Tylenol; she denies any other complaints or concerns including chest pain, shortness of breath, nausea, vomiting, lethargy, or chills. She is not currently trying to become however she has not participating in any active contraceptive either. She does have a significant past medical history including an ST [facility] with ischemic cardiomyopathy last year that occurred approximately 5 months along with hypertension, hyperlipidemia, and hypothyroid. - Related Data Home Medications Medication Instructions Recorded Confirmed Levothyroxine Sodium [Synthroid] 50 mcg PO DAILY 12/26/20 08/15/21 Aspirin EC [Ecotrin Low Dose] 81 mg PO DAILY 06/27/21 08/15/21 Previous Rx's Medication Instructions Recorded Atorvastatin [Lipitor] 40 mg PO DAILY #90 tab 09/11/20 Clopidogrel [Plavix] 75 mg PO DAILY #90 tab 09/11/20 Losartan [Cozaar] 50 mg PO DAILY #90 tab 09/11/20 Metoprolol Succinate (ER) [Toprol 50 mg PO DAILY 30 Days #30 tablet 12/27/20 XL] Nitroglycerin Sl Tabs [Nitrostat] 0.4 mg SUBLINGUAL Q5M PRN #20 tab 12/27/20 Amoxic-Pot Clav 875-125Mg 1 tab PO BID 10 Days #20 tab 11/12/21 [Augmentin 875-125] Allergies Allergy/AdvReac Type Severity Reaction Status Date / Time No Known Allergies Allergy Verified 01/27/22 13:16 Review of Systems ROS Statement: Those systems with pertinent positive or pertinent negative responses have been documented in the HPI. ROS Other: All systems not noted in ROS Statement are negative. Past Medical History Past Medical History: Hyperlipidemia, Hypertension, Myocardial Infarction ([place]), Thyroid Disorder Additional Past Medical History / Comment(s): Broken right ankle 2020 Last Myocardial Infarction Date:: 09/08/20 History of Any Multi-Drug Resistant Organisms: None Reported Past Surgical History: Section, Cholecystectomy, Heart Catheterization Additional Past Surgical History / Comment(s): cardiac thrombectomy Past Anesthesia/Blood Transfusion Reactions: Previous Problems w/ Anesthesia Additional Past Anesthesia/Blood Transfusion Reaction / Comment(s): hypotension with epidural Past Psychological History: Depression Smoking Status: Vaper Past Alcohol Use History: Occasional Past Drug Use History: Marijuana - Past Family History Mother History Unknown: Yes Family Medical History: Hypertension Additional Family Medical History / Comment(s): ovarian cancer, christiano, breast tumor (benign), "leaky valve" Father Family Medical History: Hyperlipidemia, Hypertension General Exam Limitations: no limitations General appearance: alert, in no apparent distress Head exam: Present: atraumatic, normocephalic, normal inspection Eye exam: Present: normal appearance, PERRL, EOMI. Absent: scleral icterus, conjunctival injection, periorbital swelling ENT exam: Present: normal exam, mucous membranes moist Neck exam: Present: normal inspection, full ROM Respiratory exam: Present: normal lung sounds bilaterally. Absent: respiratory distress, wheezes, rales, rhonchi, stridor Cardiovascular Exam: Present: regular rate, normal rhythm, normal heart sounds. Absent: systolic murmur, diastolic murmur, rubs, gallop, clicks GI/Abdominal exam: Present: soft, normal bowel sounds. Absent: distended, tende rness, guarding, rebound, rigid Rectal exam: Present: deferred Extremities exam: Present: normal inspection. Absent: tenderness, pedal edema, joint swelling Back exam: Present: normal inspection Neurological exam: Present: alert, oriented X3, CN II-XII intact Psychiatric exam: Present: normal affect, normal mood Skin exam: Present: warm, dry, intact, normal color. Absent: rash Course Vital Signs 01/27/22 01/27/22 13:14 15:42 Temperature 97.5 F L Pulse Rate 79 72 Respiratory 20 18 Rate Blood Pressure 127/82 122/73 O2 Sat by Pulse 99 99 Oximetry Medical Decision Making - Medical Decision Making 21-year-old female presenting to the emergency room with concerns of heavy clotting and bleeding after believed without a positive test at home. Will workup for potential miscarriage with serum pr egnancy tests, CBC, Rh typing and urinalysis. In the setting of lack of test at home will defer ultrasound at this time. CBC stable. Rh+. Serum hCG less than 2.4. Urinalysis with large amount of blood consistent with menstrual cycle without evidence of infection. In the absence of previous positive test will defer further laboratory studies or diagnostic imaging. Education regarding menorrhagia given. Will discharge home in stable condition with follow-up with her primary care provider. Case discussed with Dr. Fernandez. - Lab Data Result diagrams: 01/27/22 13:50 Lab Results 01/27/22 01/27/22 01/27/22 Range/Units 13:50 13:50 13:50 WBC 7.2 (3.8-10.6) k/uL RBC 5.01 (3.80-5.40) m/uL Hgb 14.5 (11.4-16.0) gm/dL Hct 43.5 (34.0-46.0) % MCV 86.7 (80.0-100.0) fL MCH 28.9 (25.0-35.0) pg MCHC 33.3 (31.0-37.0) g/dL RDW 12.7 (11.5-15.5) % Plt Count 289 (150-450) k/uL MPV 8.0 Neutrophils % 65 % Lymphocytes % 24 % Monocytes % 7 % Eosinophils % 2 % Basophils % 1 % Neutrophils # 4.7 (1.3-7.7) k/uL Lymphocytes # 1.8 (1.0-4.8) k/uL Monocytes # 0.5 (0-1.0) k/uL Eosinophils # 0.1 (0-0.7) k/uL Basophils # 0.1 (0-0.2) k/uL HCG, Quant <2.4 mIU/mL Urine Color Yellow Urine Appearance Clear (Clear) Urine pH 5.5 (5.0-8.0) Ur Specific [place] 1.011 (1.001-1.035) Urine Protein Trace H (Negative) Urine Glucose (UA) Negative (Negative) Urine Ketones Negative (Negative) Urine Blood Large H (Negative) Urine Nitrite Negative (Negative) Urine Bilirubin Negative (Negative) Urine Urobilinogen <2.0 (<2.0) mg/dL Ur Leukocyte Esterase Trace H (Negative) Urine RBC >182 H (0-5) /hpf Urine WBC 9 H (0-5) /hpf Ur Squamous Epith Cells 2 (0-4) /hpf Urine Bacteria Rare H (None) /hpf Urine Mucus Few H (None) /hpf Disposition Clinical Impression: Menorrhagia Disposition: HOME SELF-CARE Condition: Stable Instructions (If sedation given, give patient instructions): Dysmenorrhea (ED) Additional Instructions: Please stay well hydrated. Utilize [id number] Motrin or Tylenol as needed for menstrual cramping. Please follow-up with your primary care provider. Please return to the Emergency Department if symptoms worsen or any other concerns. Is patient prescribed a controlled substance at d/c from ED?: No Referrals: Lencho Quiroz III, MD [Primary Care Provider] - 1-2 days Time of Disposition: 15:22
[2022-01-27 14:01] LABS: Basophils # (A) 0.1 k/uL (0-0.2); Basophils % (A) 1 %; Eosinophils # (A) 0.1 k/uL (0-0.7); Eosinophils % (A) 2 %; HCT 43.5 % (34.0-46.0); HGB 14.5 gm/dL (11.4-16.0); Lymphocytes # (A) 1.8 k/uL (1.0-4.8); Lymphocytes % (A) 24 %; MCH 28.9 pg (25.0-35.0); MCHC 33.3 g/dL (31.0-37.0); MCV 86.7 fL (80.0-100.0); Monocytes # (A) 0.5 k/uL (0-1.0); Monocytes % (A) 7 %; Neutrophils # (A) 4.7 k/uL (1.3-7.7); Neutrophils % (A) 65 %; Platelet Count 289 k/uL (150-450); RBC 5.01 m/uL (3.80-5.40); RDW 12.7 % (11.5-15.5); WBC 7.2 k/uL (3.8-10.6)
[2022-01-27 14:18] LABS: Appearance,Urine Clear (Clear); Bacteria,Urine Rare /hpf; Bilirubin,Urine Negative (Negative); Blood,Urine Large (Negative); Color,Urine Yellow; Glucose,Urine (UA) Negative (Negative); Ketones,Urine Negative (Negative); Leukocyte Esterase,Urine Trace (Negative); Mucus,Urine Few /hpf; Nitrite,Urine Negative (Negative); PH, Urine 5.5 (5.0-8.0); Protein,Urine Trace (Negative); RBC,Urine >182 /hpf (0-5); Specific Gravity,Urine 1.011 (1.001-1.035); Squamous Epithelial Cell,Urine 2 /hpf (0-4); Urobilinogen,Urine <2.0 mg/dL (<2.0); WBC,Urine 9 /hpf (0-5)
[2022-01-27 15:43] VITALS: BP 122/73; PULSE 72; RESP 18
== END 2022-01-27 15:43 | disposition home or self-care (01) ==
LOC: EC 13:12
DX: N92.0 Excessive and frequent menstruation with regular cycle (principal); F32.A Depression, unspecified; I10 Essential (primary) hypertension; E78.5 Hyperlipidemia, unspecified; I25.2 Old myocardial infarction; Z79.890 Hormone replacement therapy; Z79.82 Long term (current) use of aspirin
CPT/HCPCS: 36415; 81001; 84702; 85025; 96360; 99283

== ENCOUNTER 2023-03-04 09:01 | Emergency (ER) | payer OTHER ==
[2023-03-04] MEDS ORDERED: SODIUM CHLORIDE 0.9% 1,000 ML IV ONE (09:31)
[2023-03-04] MEDS ORDERED: ONDANSETRON 4 MG/2 ML VIAL IVP STA (09:31)
[2023-03-04] MEDS ORDERED: FAMOTIDINE 20 MG/2 ML VIAL IV STA (09:31)
[2023-03-04 10:21] LABS: Basophils % (A) 1 %; Eosinophils # (A) 0.1 k/uL (0-0.7); Eosinophils % (A) 2 %; HCT 45.8 % (34.0-46.0); HGB 15.2 gm/dL (11.4-16.0); Lymphocytes # (A) 1.2 k/uL (1.0-4.8); Lymphocytes % (A) 24 %; MCH 29.7 pg (25.0-35.0); MCHC 33.1 g/dL (31.0-37.0); MCV 89.8 fL (80.0-100.0); Mean Platelet Volume 8.5; Monocytes # (A) 0.3 k/uL (0-1.0); Monocytes % (A) 7 %; Neutrophils # (A) 3.4 k/uL (1.3-7.7); Neutrophils % (A) 66 %; Platelet Count 219 k/uL (150-450); RDW 12.5 % (11.5-15.5); WBC 5.1 k/uL (3.8-10.6)
[2023-03-04 10:36] LABS: ALT 17 U/L (4-34); AST 22 U/L (14-36); African American GFR (CKD) >90 (>60 ml/min/1.73 sqM); Albumin 4.3 g/dL (3.5-5.0); Alkaline Phosphatase 63 U/L (38-126); Amylase 36 U/L (30-110); Anion Gap 13 mmol/L; Blood Urea Nitrogen 10 mg/dL (7-17); Calcium 9.8 mg/dL (8.4-10.2); Carbon Dioxide 24 mmol/L (22-30); Chloride 105 mmol/L (98-107); Glucose 86 mg/dL (74-99); Lipase 88 U/L (23-300); Non-African American GFR(CKD) >90 (>60 ml/min/1.73 sqM); Potassium 3.8 mmol/L (3.5-5.1); Sodium 142 mmol/L (137-145); Total Bilirubin 0.6 mg/dL (0.2-1.3); Total Protein 7.2 g/dL (6.3-8.2)
[2023-03-04 10:52] LABS: HCG,Quantitative Serum <2.4 mIU/mL
[2023-03-04 10:55] LABS: Appearance,Urine Turbid (Clear); Bilirubin,Urine Negative (Negative); Blood,Urine Negative (Negative); Color,Urine Light Red; Glucose,Urine (UA) Negative (Negative); Ketones,Urine Negative (Negative); Leukocyte Esterase,Urine Small (Negative); Mucus,Urine Many /hpf; Nitrite,Urine Negative (Negative); PH, Urine 5.5 (5.0-8.0); Protein,Urine 1+ (Negative); RBC,Urine 6 /hpf (0-5); Specific Gravity,Urine 1.031 (1.001-1.035); Squamous Epithelial Cell,Urine 11 /hpf (0-4); WBC,Urine 5 /hpf (0-5)
[2023-03-04 11:37] VITALS: RESP 18
--- NOTE | 2023-03-04 11:48 | ED ---
General Adult HPI - General Chief complaint: Nausea/Vomiting/Diarrhea Stated complaint: vomiting,syncope Time Seen by Provider: 03/04/23 09:20 Source: patient, RN notes reviewed Mode of arrival: ambulatory Limitations: no limitations - History of Present Illness Initial comments: 22-year-old female with no significant past medical history presents emergency department with a chief complaint of nausea and vomiting times one month. She reports that her symptoms have been intermittent. They will be worse when she eats. She also reports that she smokes marijuana daily. She reports that when she tries to quit his symptoms Persist. She has been seen by her PCP for this. Recommended she come to the emergency department. She's been trying at home Zofran was mild symptomatic improvement. She does report that she took a hot shower on Friday with she felt hot and passed out. Reports history of cholecystectomy. - Related Data Home Medications Medication Instructions Recorded Confirmed Levothyroxine Sodium [Synthroid] 50 mcg PO DAILY 12/26/20 08/15/21 Aspirin EC [Ecotrin Low Dose] 81 mg PO DAILY 06/27/21 08/15/21 Previous Rx's Medication Instructions Recorded Atorvastatin [Lipitor] 40 mg PO DAILY #90 tab 09/11/20 Clopidogrel [Plavix] 75 mg PO DAILY #90 tab 09/11/20 Losartan [Cozaar] 50 mg PO DAILY #90 tab 09/11/20 Metoprolol Succinate (ER) [Toprol 50 mg PO DAILY 30 Days #30 tablet 12/27/20 XL] Nitroglycerin Sl Tabs [Nitrostat] 0.4 mg SUBLINGUAL Q5M PRN #20 tab 12/27/20 Amoxic-Pot Clav 875-125Mg 1 tab PO BID 10 Days #20 tab 11/12/21 [Augmentin 875-125] Allergies Allergy/AdvReac Type Severity Reaction Status Date / Time No Known Allergies Allergy Verified 03/04/23 09:16 Review of Systems ROS Statement: Those systems with pertinent positive or pertinent negative responses have been documented in the HPI. ROS Other: All systems not noted in ROS Statement are negative. Past Medical History Past Medical History: Hyperlipidemia, Hypertension, Myocardial Infarction ([place]), Thyroid Disorder Additional Past Medical History / Comment(s): Broken right ankle 2019 Last Myocardial Infarction Date:: 09/08/20 History of Any Multi-Drug Resistant Organisms: None Reported Past Surgical History: Section, Cholecystectomy, Heart Catheterization Additional Past Surgical History / Comment(s): cardiac thrombectomy Past Anesthesia/Blood Transfusion Reactions: Previous Problems w/ Anesthesia Additional Past Anesthesia/Blood Transfusion Reaction / Comment(s): hypotension with epidural Past Psychological History: Depression Smoking Status: Vaper Past Alcohol Use History: Occasional Past Drug Use History: Marijuana - Past Family History Mother History Unknown: Yes Family Medical History: Hypertension Additional Family Medical History / Comment(s): ovarian cancer, christiano, breast tumor (benign), "leaky valve" Father Family Medical History: Hyperlipidemia, Hypertension General Exam - General Exam Comments Initial Comments: General: Alert, in no acute distress Head: atraumatic normocephalic. Eyes PERRL, EOMI intact, mucous membranes moist Respiratory: Lungs clear to auscultation bilaterally Cardiovascular: Heart rate regular rate and rhythm Abdominal: Soft without guarding or rebound Extremities: Normal inspection with full range of motion and normal capillary refill Neuroogic: alert and oriented 3, CN II-XII intact, able to ambulate with steady gait Skin: warm dry and intact with normal color Limitations: no limitations Course Vital Signs 03/04/23 03/04/23 03/04/23 09:14 11:17 12:54 Temperature 98 F 97.8 F Pulse Rate 100 80 61 Respiratory 22 18 18 Rate Blood Pressure 119/82 112/78 119/68 O2 Sat by Pulse 99 98 99 Oximetry - Reevaluation(s) Reevaluation #1: 03/04/23 11:47 Reevaluated. Reports symptomatic improvement status post medications. Medical Decision Making - Medical Decision Making Was pt. sent in by a medical professional or institution (, [place], [facility], urgent care, hospital, or group home...) When possible be specific @ -[No] Did you speak to anyone other than the patient for history (EMS, parent, family, police, friend...)? What history was obtained from this source @ -[No] Did you review nursing and triage notes (agree or disagree)? Why? @ -[I reviewed and agree with nursing and triage notes] Were old charts reviewed (outside hosp., previous admission, EMS record, old EKG, old radiological studies, urgent care reports/EKG's, group home records)? Report findings @ -[No old charts were reviewed] Differential Diagnosis (chest pain, altered mental status, abdominal pain women, abdominal pain men, vaginal bleeding, weakness, fever, dyspnea, syncope, headache, dizziness, GI bleed, back pain, seizure, CVA, palpatations, mental health, musculoskeletal)? @ -[not applicable] EKG interpreted by me (3pts min.). @ -[As above] X-rays interpreted by me (1pt min.). @ -[None done] CT interpreted by me (1pt min.). @ -[None done] U/S interpreted by me (1pt. min.). @ -[None done] What testing was considered but not performed or refused? (CT, X-rays, U/S, labs)? Why? @ -[None] What meds were considered but not given or refused? Why? @ -[None] Did you discuss the management of the patient with other professionals (professionals i.e. , [place], [facility], lab, RT, psych nurse, director of social work, security program manager, teacher, court security officer, telehealth case manager)? Give summary @ -[No] Was smoking cessation discussed for >3mins.? @ -[No] Was critical care preformed (if so, how long)? @ -[No] Were there social determinants of health that impacted care today? How? (Homelessness, low income, unemployed, alcoholism, drug addiction, transportation, low edu. Level, literacy, decrease access to med. care, long-term, rehab)? @ -[No] Was there de-escalation of care discussed even if they declined (Discuss DNR or withdrawal of care, Hospice)? DNR status @ -[No] What co-morbidities impacted this encounter? (DM, HTN, Smoking, COPD, CAD, Cancer, CVA, ARF, Chemo, Hep., AIDS, mental health diagnosis, sleep apnea, morbid obesity)? @ -[None] Was patient admitted / discharged? Hospital course, mention meds given and route , prescriptions, significant lab abnormalities, going to OR and other pertinent info. @ Discharged. This is a pleasant 22-year-old female who presents the emergency department with a chief complaint of nausea and vomiting. Patient had a thorough history and physical exam performed. Vital signs are stable. Patient had no episodes of vomiting during the course of the ED. Heart rate regular rate and rhythm, lungs are to auscultation bilaterally abdomen soft and nontender. Patient had laboratory studies which were essentially unremarkable. Patient was provided Zofran, Pepcid, 1 L IV fluids with symptomatic improvement. She is agreeable with the plan for discharge home. Recommend close follow-up with PCP in 1-2 days. Return precautions discussed. Case is discussed with Dr. Correa, ED attending who agrees with plan of care Undiagnosed new problem with uncertain prognosis? @ -[No] Drug Therapy requiring intensive monitoring for toxicity (Heparin, Nitro, Insulin, Cardizem)? @ -[No] Were any procedures done? @ -[No] Diagnosis/symptom? @ -Nausea and Vomiting - Syncope Acute, or Chronic, or Acute on Chronic? @ -Acute Uncomplicated (without systemic symptoms) or Complicated (systemic symptoms)? @ -Uncomplicated Side effects of treatment? @ -[No] Exacerbation, Progression, or Severe Exacerbation? @ -[No] Poses a threat to life or bodily function? How? (Chest pain, [place], [place], pneumonia, PE, COPD, DKA, ARF, appy, cholecystitis, CVA, Diverticulitis, Homicidal, Suicidal, threat to staff... and all critical care pts) @ -Low likelihood - Lab Data Result diagrams: 03/04/23 09:40 03/04/23 09:40 Lab Results 03/04/23 03/04/23 03/04/23 Range/Units 09:40 09:40 09:40 WBC 5.1 (3.8-10.6) k/uL RBC 5.10 (3.80-5.40) m/uL Hgb 15.2 (11.4-16.0) gm/dL Hct 45.8 (34.0-46.0) % MCV 89.8 (80.0-100.0) fL MCH 29.7 (25.0-35.0) pg MCHC 33.1 (31.0-37.0) g/dL RDW 12.5 (11.5-15.5) % Plt Count 219 (150-450) k/uL MPV 8.5 Neutrophils % 66 % Lymphocytes % 24 % Monocytes % 7 % Eosinophils % 2 % Basophils % 1 % Neutrophils # 3.4 (1.3-7.7) k/uL Lymphocytes # 1.2 (1.0-4.8) k/uL Monocytes # 0.3 (0-1.0) k/uL Eosinophils # 0.1 (0-0.7) k/uL Basophils # 0.0 (0-0.2) k/uL Sodium 142 (137-145) mmol/L Potassium 3.8 (3.5-5.1) mmol/L Chloride 105 (98-107) mmol/L Carbon Dioxide 24 (22-30) mmol/L Anion Gap 13 mmol/L BUN 10 (7-17) mg/dL Creatinine 0.71 (0.52-1.04) mg/dL Est GFR (CKD-EPI)AfAm >90 (>60 ml/min/1.73 sqM) Est GFR (CKD-EPI)NonAf >90 (>60 ml/min/1.73 sqM) Glucose 86 (74-99) mg/dL Calcium 9.8 (8.4-10.2) mg/dL Total Bilirubin 0.6 (0.2-1.3) mg/dL AST 22 (14-36) U/L ALT 17 (4-34) U/L Alkaline Phosphatase 63 (38-126) U/L Total Protein 7.2 (6.3-8.2) g/dL Albumin 4.3 (3.5-5.0) g/dL Amylase 36 (30-110) U/L Lipase 88 (23-300) U/L HCG, Quant <2.4 mIU/mL Urine Color Light Red Urine Appearance Turbid H (Clear) Urine pH 5.5 (5.0-8.0) Ur Specific [place] 1.031 (1.001-1.035) Urine Protein 1+ H (Negative) Urine Glucose (UA) Negative (Negative) Urine Ketones Negative (Negative) Urine Blood Negative (Negative) Urine Nitrite Negative (Negative) Urine Bilirubin Negative (Negative) Urine Urobilinogen 2.0 (<2.0) mg/dL Ur Leukocyte Esterase Small H (Negative) Urine RBC 6 H (0-5) /hpf Urine WBC 5 (0-5) /hpf Ur Squamous Epith Cells 11 H (0-4) /hpf Urine Mucus Many H (None) /hpf Disposition Clinical Impression: Nausea and vomiting Disposition: HOME SELF-CARE Condition: Stable Instructions (If sedation given, give patient instructions): Acute Nausea and Vomiting (ED) Additional Instructions: Please monitor symptoms closely These return to the nearest emergency department if worsening symptoms or blood in the vomit develops Is patient prescribed a controlled substance at d/c from ED?: No Referrals: Tonio Maldonado DO [Primary Care Provider] - 1-2 days Time of Disposition: 11:47
[2023-03-04 13:14] VITALS: BP 119/68; PULSE 61; TEMP 97.8
== END 2023-03-04 13:01 | disposition home or self-care (01) ==
LOC: EC 09:01
DX: R11.2 Nausea with vomiting, unspecified (principal); I10 Essential (primary) hypertension; I21.9 Acute myocardial infarction, unspecified; E07.9 Disorder of thyroid, unspecified; F12.90 Cannabis use, unspecified, uncomplicated; F17.290 Nicotine dependence, other tobacco product, uncomplicated; Z79.82 Long term (current) use of aspirin; Z79.890 Hormone replacement therapy; Z86.59 Personal history of other mental and behavioral disorders
CPT/HCPCS: 36415; 80053; 82150; 83690; 85025; 81001; 84702; 99284; 96374; 96375; 96361 ×2; J2405; J3490